=== PATIENT | female | born 1995 | race Caucasian/White ===

== ENCOUNTER 2023-07-29 13:08 | Inpatient (IN) ==
--- NOTE | 2023-07-29 14:18 | Emergency Department Note ---
Impression & Plan Acute psychosis, UTI (urinary tract infection), Acute hypokalemia, Hallucinations, Elevated bilirubin ED Provider Note HISTORY OF PRESENT ILLNESS: Patient is a 28-year-old female presenting for mental health evaluation. Patient reportedly has had 4 interactions with police in the last 14 hours. They have been called to her home and to multiple businesses in the area for the patient acting erratically. Patient reports that she is having visual and auditory hallucinations. She thinks this is secondary to starting Effexor as of yesterday. She reports she has not slept in 36 hours because "I just do not sleep well normally." She states that she got in a disagreement with her mother today because her mother "took my car keys and destroyed some of my property." Patient reports that the voices that she hears are encouraging to her and do not seem to be making any commands or demands. She reports that the hallucinations she is seeing her "scenes from the [employer] books that I read." Denies any suicidal or homicidal ideation. ROS: as above PHYSICAL EXAM: Constitutional: Patient appears in no acute distress. HENT: Head: Normocephalic and atraumatic. Eyes: EOMI, PERRL Mouth/Throat: Mucous membranes moist. Neck: Trachea midline. Neck supple. Musculoskeletal: No edema, tenderness or deformity noted. Skin: Warm and dry. Patient has some ecchymosis on her bilateral forearms. Psychiatric: Patient appears well groomed. Makes fair contact. Speech is pressured with elevated rate. Thought process is tangential and difficult to redirect. Neurological: Alert and keenly responsive. CN II-XII grossly intact, moving all extremities equally and fully. MDM: - Vitals signs showed hypertension and tachycardia. - History obtained via patient and police. Patient presents with hallucinations. Patient reportedly has had poor interactions with the police in the last 14 hours. She has had multiple interactions with family and strangers acting erratically. She reports has been having auditory and visual hallucinations. Reports has been unable to sleep in the last 36 hours. Denies any suicidal or homicidal ideation. - Chronic conditions affecting care: None - Differential diagnoses include, but are not limited to: Salicylate overdose; acetaminophen overdose; SSRI overdose; alcohol intoxication; UTI - Order placed for continuous cardiac monitoring. At this time, monitor showed rate of 110 bpm with normal sinus rhythm, per my interpretation. - External medical records reviewed. - EKG reviewed by myself showed normal sinus rhythm. Rate 85 bpm. QTc 454. QRS 94. No acute ischemic changes. - Laboratory workup interpreted by myself showed normal WBC; hypokalemia (K 3.1); elevated total bilirubin (5.3); elevated AST (115); negative ethanol/salicylate/acetaminophen levels; negative hCG - COVID negative - UA showed evidence of infection. Given 500 mg PO keflex. - UDS positive for THC - RUQ US negative for acute pathology. Noted to have hepatic steatosis - CT abdomen/pelvis with IV contrast showed hepatic steatosis. 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 She was given 20 mg of oral potassium. She given 1 L IV fluids and 0.5 mg of IV Ativan due to continued tachycardia and complaint of auditory and visual hallucinations - Behavioral health campground caretaker called the patient's mother who reported that she believes that the patient is inappropriately taking her psychiatric medications. Reports that the patient has ingested 11 tabs of 5 mg of Ambien in the last 36 hours. Reports that she is ingested 15 tabs of Seroquel 25 mg in that timeframe as well secondary to trying to get her hallucinations under control and for her to be able to sleep. - Discussed patient's medication mismanagement with [facility] at 1900. They recommended bicarb of the patient's QRS on EKG is greater than 120 ms. Recommended IV magnesium if QTc is greater than 500. Recommend Ativan 1 to 2 mg IV every 15 to 20 minutes as needed for agitation or continued symptoms - On discussion with campground caretaker reports that patient will not be medically cleared for placement to psychiatric facility secondary to her elevated bilirubin. Given her multitude of medical problems at this point and her continued tachycardia and hypertension and worsening hallucinations, will admit for medical monitoring and psychiatric evaluation - Hospitalist consulted for admission - Patient admitted to [facility] Hospitalist service for further evaluation and management. ASSESSMENT AND PLAN: Diagnosis: acute psychosis; hallucinations; elevated bilirubin; hypokalemia; UTI Plan: admit Past Med/Surg History Social History Feels Safe at Home: Yes Gender Identity: Female Allergies Allergies Allergy/AdvReac Type Severity Reaction Status Date / Time gluten Allergy Intermediate CELIAC Unverified 04/22/16 22:29 DISEASE Home Meds Home Medications Medication Instructions Recorded Confirmed metoprolol tartrate 50 mg tablet 50 mg PO QAM 07/29/23 07/29/23 ondansetron 4 mg disintegrating 4 mg PO DIRECTED PRN Nausea And 07/29/23 07/29/23 tablet Vomiting Results & Data (ED) Vital Signs Vital Signs - 24 hr 07/29/23 13:31 07/29/23 17:16 07/29/23 19:00 Temperature 36.5 C 36.6 C Temperature Source Oral Oral Pulse Rate 110 H Pulse Rate [Right Radial] 127 H 111 H Respiratory Rate 20 20 22 Blood Pressure 168/108 H Blood Pressure [Left Arm] 165/99 H 159/104 H Blood Pressure Mean 128 Blood Pressure Mean [Left Arm] 121 122 Blood Pressure Position Sitting Pulse Oximetry 99 99 Oxygen Delivery Method Room Air Room Air Sepsis Recent Fever Within 48 Hours No Sepsis New/Unexplained Change in Mental Status No Sepsis Action Taken by Nursing No Action Required Laboratory Data 07/29/23 14:10 07/29/23 14:10 Lab Results 07/29/23 07/29/23 Range/Units 14:10 14:25 WBC 6.85 (4.8-10.8) K/ul RBC 4.14 L (4.20-5.40) M/uL Hgb 12.4 (12.0-16.0) g/dl Hct 35.0 L (37.0-47.0) % MCV 84.5 (80.0-100.0) fL MCH 30.0 (25.0-34.0) pg MCHC 35.4 (32.0-36.0) g/dL RDW Std Deviation 57.0 H (36.4-46.3) fL RDW Coeff of Ken 18.8 H (11.5-14.5) % Plt Count 321 (130-400) K/uL MPV 9.5 (9.4-12.4) fL Immature Gran % (Auto) 0.3 % Neut % (Auto) 70.9 % Lymph % (Auto) 20.9 % Falls % (Auto) 7.4 % Eos % (Auto) 0.1 % Baso % (Auto) 0.4 % Neut # (Auto) 4.85 (1.40-6.50) K/uL Lymph # (Auto) 1.43 (1.20-3.40) K/uL Falls # (Auto) 0.51 (0.11-0.59) K/uL Eos # (Auto) 0.01 (0.00-0.50) K/uL Baso # (Auto) 0.03 (0.00-0.20) K/uL Immature Gran # (Auto) 0.02 (0.01-0.20) K/uL Sodium 136 (136-145) mmol/L Potassium 3.1 L (3.5-5.1) mmol/L Chloride 99 (98-107) mmol/L Carbon Dioxide 26 (21-32) mmol/L Anion Gap 11 (3-11) BUN 5 L (6-23) mg/dl Creatinine 0.67 (0.6-1.2) mg/dl Est Cr Clr Drug Dosing Not Reportable Est GFR ( Amer) 139.6 ml/min Est GFR (Non-Af Amer) 120.5 ml/min BUN/Creatinine Ratio 7.5 L (10-20) Glucose 77 (70-99(Fasting)) mg/dl Calcium 9.9 (8.6-10.3) mg/dl Total Bilirubin 5.3 H (0.2-1.0) mg/dl AST 115 H (13-39) U/L ALT 42 (7-52) U/L Alkaline Phosphatase 112 H (34-104) U/L Total Protein 8.1 (6.0-8.3) gm/dl Albumin 4.6 (3.4-5.0) gm/dl Globulin 3.5 (2.5-4.0) gm/dl Albumin/Globulin Ratio 1.3 (0.9-2) Lipase 5 L (11-82) U/L TSH 0.785 (0.300-4.500) uIu/ml HCG, Qual Negative (Negative) Urine Color Yellow Urine Appearance Clear (Clear) Urine pH 6.0 (4.5-7.5) Ur Specific Secor 1.004 (1.000-1.030) Urine Protein Negative (Negative) Urine Glucose (UA) Negative (Negative) Urine Ketones Trace H (Negative) Urine Blood Negative (Negative) Urine Nitrite Positive A (Negative) Urine Bilirubin Negative (Negative) Urine Urobilinogen Negative (Negative) Ur Leukocyte Esterase 2+ H (Negative) Urine RBC 0-4 (0-4) /hpf Urine WBC 10-30 H (0-5) /hpf Ur Epithelial Cells 5-10 H (0-5) /lpf Urine Bacteria 1+ H (Negative) Salicylates < 3.0 L (3.0-30) mg/dl Urine Opiates Screen Neg (Neg) Ur Methadone, Qual Neg (Neg) Acetaminophen < 3 L (10-30) ug/ml Urine Barbiturates Neg (Neg) Ur Phencyclidine (PCP) Neg (Neg) U Amphetamin/Meth Scrn Neg (Neg) MDMA (Ecstasy) Screen Neg (Neg) U Benzodiazepines Scrn Neg (Neg) Ur Cocaine Metabolite Neg (Neg) U Marijuana (THC) Screen Pos H (Neg) Ethyl Alcohol mg/dL < 10.0 (<10.0) mg/dl SARS-CoV-2, RNA, NAAT NEGATIVE (NEGATIVE) Administered Medications Discontinued Medications Cephalexin HCl (Cephalexin 250 Mg Cap) 500 mg PO NOW ONE Stop: 07/29/23 16:23 Last Admin: 07/29/23 16:49 Dose: 500 mg Documented By: MIGUEL Sodium Chloride (Nss) 1,000 mls @ 999 mls/hr IV .Q1H1M ONE Stop: 07/29/23 20:00 Last Infusion: 07/29/23 20:36 Dose: Infused Documented By: Admin: 07/29/23 19:27 Dose: 999 mls/hr Documented By: DONALD Ioversol (Optiray 320 100ml) 88 ml IV ONCE ONE Stop: 07/29/23 18:53 Last Admin: 07/29/23 18:53 Dose: 88 ml Documented By: DOLLY Ketorolac Tromethamine (Ketorolac Tromethamine 15 Mg/Ml Vial) 15 mg IM NOW STA Stop: 07/29/23 16:36 Last Admin: 07/29/23 16:48 Dose: 15 mg Documented By: MIGUEL Lorazepam (Lorazepam 1 Mg Tab) 2 mg PO NOW STA Stop: 07/29/23 15:14 Last Admin: 07/29/23 15:28 Dose: 2 mg Documented By: MIGUEL Lorazepam (Lorazepam 1 Mg/1 Ml Syr Ed Inj Use) 0.5 mg IV ONE STA Stop: 07/29/23 19:28 Last Admin: 07/29/23 19:49 Dose: 0.5 mg Documented By: DONALD Potassium Chloride (Potassium Chloride Crtab 20 Meq Tabcr) 20 meq PO NOW STA Stop: 07/29/23 18:59 Last Admin: 07/29/23 19:27 Dose: 20 meq Documented By: CEK Imaging Data Radiologist's Impression: Liver Ultrasound 07/29/23 16:22 US liver CLINICAL HISTORY: elevated bilirubin COMPARISON STUDY: KUB June 18, 2015. FINDINGS: Hepatic echogenicity is mildly increased. Size of the liver is normal. There are no hepatic lesions. There is no biliary ductal dilatation. Common bile duct measures 3 mm in caliber. The gallbladder is normal. There are are no gallstones. There is no right hydronephrosis. Pancreas is unremarkable by sonography. IMPRESSION: 1. No gallstones or biliary ductal dilatation. 2. Increased hepatic echogenicity suggestive of hepatic steatosis. ACT 112: Negative or not required by law. Electronically signed by: Triston Dewey M.D. 07/29/2023 5:20 PM Abdomen/Pelvis CT 07/29/23 18:24 CT OF THE ABDOMEN AND PELVIS WITH CONTRAST CLINICAL HISTORY: abdominal pain; elevated bilirubin COMPARISON STUDY: Right upper quadrant ultrasound performed earlier today. TECHNIQUE: Following IV administration of 88 mL of Optiray, axial images of the abdomen and pelvis were obtained from the lung bases to the proximal femurs. Images were reviewed in the axial, sagittal, and coronal planes. IV contrast was administered without complication. Automated exposure control was utilized for the study. A dose lowering technique was utilized adhering to the principles of ALARA. CT DOSE: 511.2 mGy.cm FINDINGS: Lung bases are unremarkable. No pneumatosis, free air or portal venous gas is present. There is hepatic steatosis. Size of the liver is normal. No hepatic lesions are identified. There is no biliary or pancreatic ductal dilatation. No peripancreatic or pericholecystic infiltration is present. Spleen, adrenal glands and kidneys are normal. There is no hydronephrosis. Pancreas is unremarkable. There is severe narrowing of the proximal celiac axis. The narrowing and configuration suggest median arcuate ligament as the etiology. The main, right and left portal veins are patent. There is no ascites. Caliber and wall thickness of small and large bowel are normal. The appendix is normal. Ovaries are not enlarged. There is subtle subchondral sclerosis within the bilateral femoral heads without collapse. No acute fractures are identified within the visualized skeletal structures. IMPRESSION: 1. Hepatic steatosis. Normal liver morphology. 2. No biliary or pancreatic ductal dilatation. 3. 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 4. Possible avascular necrosis of the bilateral femoral heads without collapse. 5. No bowel obstruction. No bowel wall thickening. Normal appendix. ACT 112: Negative or not required by law. Electronically signed by: Triston Dewey M.D. 07/29/2023 7:14 PM Discharge Plan Visit Data Chief Complaint: Mental Health Evaluation Stated Complaint: [facility] ED Provider: Alison Oliver Discharge Problem: Acute psychosis, UTI (urinary tract infection), Acute hypokalemia, Hallucinations, Elevated bilirubin Forms Stand Alone Forms: [facility], Suicide Prevention Resources Prescriptions Prescriptions: No Action metoprolol tartrate 50 mg Tablet 50 mg PO QAM ondansetron [Zofran ODT] 4 mg Tablet,Disintegrating 4 mg PO DIRECTED PRN (Reason: Nausea And Vomiting) Referrals Referrals: PCP,NO [Primary Care Provider] -
[2023-07-29 14:35] LABS: Basophils # (auto) 0.03 K/uL (0.00-0.20); Basophils % (auto) 0.4 %; Eosinophils # (auto) 0.01 K/uL (0.00-0.50); Eosinophils % (auto) 0.1 %; Hemoglobin 12.4 g/dl (12.0-16.0); Immature Granulocytes # (auto) 0.02 K/uL (0.01-0.20); Immature Granulocytes % (auto) 0.3 %; Lymphocytes # (auto) 1.43 K/uL (1.20-3.40); Lymphocytes % (auto) 20.9 %; Mean Corpuscular Hgb Conc 35.4 g/dL (32.0-36.0); Mean Corpuscular Volume 84.5 fL (80.0-100.0); Mean Platelet Volume 9.5 fL (9.4-12.4); Monocytes # (auto) 0.51 K/uL (0.11-0.59); Monocytes % (auto) 7.4 %; Neutrophils # (auto) 4.85 K/uL (1.40-6.50); Neutrophils % (auto) 70.9 %; Platelet Count 321 K/uL (130-400); RDW Coefficient of Variation 18.8 % (11.5-14.5); Red Blood Count 4.14 M/uL (4.20-5.40); White Blood Count 6.85 K/ul (4.8-10.8)
[2023-07-29 14:41] LABS: Appearance Urine Clear (Clear); Bilirubin Urine Negative (Negative); Blood Urine Negative (Negative); Color Urine Yellow; Glucose Urine UA Negative (Negative); Ketones Urine Trace (Negative); Leukocyte Esterase Urine 2+ (Negative); Nitrite Urine Positive (Negative); Protein Urine Negative (Negative); Specific Gravity Urine 1.004 (1.000-1.030); Urobilinogen Urine Negative (Negative)
[2023-07-29 14:45] LABS: Albumin Level 4.6 gm/dl (3.4-5.0); Anion Gap 11 (3-11); Bilirubin,Total 5.3 mg/dl (0.2-1.0); Calcium 9.9 mg/dl (8.6-10.3); Carbon Dioxide 26 mmol/L (21-32); Chloride 99 mmol/L (98-107); Potassium 3.1 mmol/L (3.5-5.1); Sodium 136 mmol/L (136-145)
[2023-07-29 14:46] LABS: Pregnancy Test, Serum Negative (Negative)
[2023-07-29 14:51] LABS: Alanine Aminotransferase 42 U/L (7-52); Albumin Globulin Ratio 1.3 (0.9-2); Alkaline Phosphatase 112 U/L (34-104); Aspartate Aminotransferase 115 U/L (13-39); BUN Creatinine Ratio 7.5 (10-20); Blood Urea Nitrogen 5 mg/dl (6-23); Est GFR (African American) 139.6 ml/min; Est GFR (Non-African American) 120.5 ml/min; Globulin 3.5 gm/dl (2.5-4.0); Glucose 77 mg/dl (70-99(Fasting)); Total Protein 8.1 gm/dl (6.0-8.3)
[2023-07-29 14:52] LABS: Acetaminophen < 3 ug/ml (10-30); Salicylate < 3.0 mg/dl (3.0-30)
[2023-07-29 15:03] LABS: Amphetamines+Metham, Urine Neg (Neg); Barbiturates, Urine Neg (Neg); Benzodiazepine, Urine Neg (Neg); Cocaine, Urine Neg (Neg); MDMA (Ecstacy), Urine Neg (Neg); Methadone, Urine Neg (Neg); Opiate, Urine Neg (Neg); Phencyclidine, Urine Neg (Neg)
[2023-07-29 15:11] LABS: Thyroid Stimulating Hormone 0.785 uIu/ml (0.300-4.500)
[2023-07-29] MEDS ORDERED: LORazepam 1 MG TAB PO STA (15:13)
[2023-07-29 15:16] LABS: Bacteria Urine 1+ (Negative); RBC Urine 0-4 /hpf (0-4)
[2023-07-29] MEDS ORDERED: cephALEXin 250 MG CAP PO ONE (16:22)
[2023-07-29] MEDS ORDERED: KETOROLAC TROMETHAMINE 15 MG/ML VIAL IM STA (16:35)
--- NOTE | 2023-07-29 17:21 | Ultrasound Report ---
US liver CLINICAL HISTORY: elevated bilirubin COMPARISON STUDY: KUB June 18, 2015. FINDINGS: Hepatic echogenicity is mildly increased. Size of the liver is normal. There are no hepatic lesions. There is no biliary ductal dilatation. Common bile duct measures 3 mm in caliber. The gallb ladder is normal. There are are no gallstones. There is no right hydronephrosis. Pancreas is unremark able by sonography. IMPRESSION: 1. No gallstones or biliary ductal dilatation. 2. Increased hepatic echogenicity suggestive of hepatic steatosis. ACT 112: Negative or not required by law. Electronically signed by: Triston Dewey M.D. 07/29/2023 5:20 PM
[2023-07-29 17:31] LABS: Lipase 5 U/L (11-82)
[2023-07-29] MEDS ORDERED: OPTIRAY 320 100ml IV ONE (18:52)
[2023-07-29] MEDS ORDERED: POTASSIUM CHLORIDE CRTAB 20 MEQ TABCR PO STA (18:58)
[2023-07-29] MEDS ORDERED: SODIUM CHLORIDE 0.9% 1,000 ML IV ONE (19:00)
--- NOTE | 2023-07-29 19:16 | CT Scan Report ---
CT OF THE ABDOMEN AND PELVIS WITH CONTRAST CLINICAL HISTORY: abdominal pain; elevated bilirubin COMPARISON STUDY: Right upper quadrant ultrasound performed earlier today. TECHNIQUE: Following IV administration of 88 mL of Optiray, axial images of the abdomen and pelvis we re obtained from the lung bases to the proximal femurs. Images were reviewed in the axial, sagittal, and coronal planes. IV contrast was administered without complication. Automated exposure control wa s utilized for the study. A dose lowering technique was utilized adhering to the principles of ALARA . CT DOSE: 511.2 mGy.cm FINDINGS: Lung bases are unremarkable. No pneumatosis, free air or portal venous gas is present. Ther e is hepatic steatosis. Size of the liver is normal. No hepatic lesions are identified. There is no b iliary or pancreatic ductal dilatation. No peripancreatic or pericholecystic infiltration is present. Spleen, adrenal glands and kidneys are normal. There is no hydronephrosis. Pancreas is unremarkable. There is severe narrowing of the proximal celiac axis. The narrowing and configuration suggest media n arcuate ligament as the etiology. The main, right and left portal veins are patent. There is no asc ites. Caliber and wall thickness of small and large bowel are normal. The appendix is normal. Ovaries are not enlarged. There is subtle subchondral sclerosis within the bilateral femoral heads without c ollapse. No acute fractures are identified within the visualized skeletal structures. IMPRESSION: 1. Hepatic steatosis. Normal liver morphology. 2. No biliary or pancreatic ductal dilatation. 3. 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 4. Possible avascular necrosis of the bilateral femoral heads without collapse. 5. No bowel obstruction. No bowel wall thickening. Normal appendix. ACT 112: Negative or not required by law. Electronically signed by: Triston Dewey M.D. 07/29/2023 7:14 PM
[2023-07-29] MEDS ORDERED: LORazepam 1 MG/1 ML SYR ED Inj Use IV STA ×3 (19:27→23:43)
--- NOTE | 2023-07-29 22:43 | History & Physical Report ---
Date of Service July 29, 2023 Assessment & Plan (1) Acute psychosis: Plan: 28-year-old female with past med significant for intermittent palpitation, celiac disease, chronic left hip pain, major depression, mixed anxiety disorder, history of alcohol abuse, PTSD, was brought into the ER for mental health evaluation. As per ER patient had 4 interactions with police in last 14 hours. They have been called for home and to multiple businesses in the area with patient acting erratically. Patient reports she is having visual and auditory hallucinations. She is hearing her family talking about her. And also seeing things on the [place]. She recently started Effexor . And she also on Seroquel. She states she did not sleep last few days and she took Ambien and also Seroquel. Looks like she ingested 11 tablets of 5 mg Ambien in the last 36 hours and also 15 tablets of Seroquel 25 mg the same timeframe to get hallucinations under control and also to help her sleep. ER talk to poison control and was recommended bicarb if QRS on EKG greater than 120 and IV magnesium if QTc greater than 500. Also recommended Ativan as needed for agitations. Patient needs medically cleared for psychiatric facility because of her elevated bilirubin. In the ER she also found her tachycardia and elevated blood pressure. Acute psychosis Visual and auditory hallucinations Drug overdose Also took 11 tablets of 5 mg Ambien and also 15 tablets of Seroquel 25 mg to help her with her hallucinations and to help her with her sleep EKG looks okay ER talk to the poison control and recommended bicarb if QRS is greater than 120 and IV magnesium if QTc greater than 500 and IV Ativan as needed for agitation We will place an IV fluids Psychiatry consult One-on-one as needed Elevated LFTs Total bilirubin 5.3 AST 115 ALT 42 Alkaline phos is [address] abdomen pelvis showed hepatic steatosis, normal liver morphology Liver ultrasound showed hepatic steatosis We will follow repeat labs in a.m. GI consult in a.m. Tachycardia and hypertension We will place on metoprolol succinate We will monitor UTI Received Keflex in the ER We will place on Rocephin We will follow cultures Possible Avascular necrosis of bilateral femoral heads will consult ortho Possible Median arcuate ligament syndrome ct scan findings will consult surgery. DVT prophylaxis SCDs Disposition Telemetry floor Full code History of Present Illness Chief Complaint: Hallucinations, elevated LFTs, UTI Primary Care Provider: NO PCP 28-year-old female with past med significant for intermittent palpitation, celiac disease, chronic left hip pain, major depression, mixed anxiety disorder, history of alcohol abuse, PTSD, was brought into the ER for mental health evaluation. As per ER patient had 4 interactions with police in last 14 hours. They have been called for home and to multiple businesses in the area with patient acting erratically. Patient reports she is having visual and auditory hallucinations. She is hearing her family talking about her. And also seeing things on the [place]. She was recently started on Effexor . And she also on Seroquel. She states she did not sleep last few days and she took Ambien and also Seroquel. Looks like she ingested 11 tablets of 5 mg Ambien in the last 36 hours and also 15 tablets of Seroquel 25 mg the same timeframe to get hallucinations under control and also to help her get sleep. ER talk to poison control and was recommended bicarb if QRS on EKG greater than 120 and IV magnesium if QTc greater than 500. Also recommended Ativan as needed for agitations. Patient needs medically cleared for psychiatric facility because of her elevated bilirubin. In the ER she also found her tachycardia and elevated blood pressure. Patient currently complains of being anxious. Answers yes to most of the questions. States has headache, has blurred visions, has sore throat, has runny nose, has cough, has nausea, has chest pains, has shortness of breath, has abdominal pain, states has both diarrhea and constipation. Past medical history. As mentioned above Past surgical history dental procedure. Social history. No smoking. Alcohol occasional as per patient. Marijuana occasional as per patient Family history no family history on file Allergies Allergy/AdvReac Type Severity Reaction Status Date / Time gluten Allergy Intermediate CELIAC Unverified 04/22/16 22:29 DISEASE Home Medications Medication Instructions Recorded Confirmed Type metoprolol tartrate 50 mg tablet 50 mg PO QAM 07/29/23 07/29/23 History ondansetron 4 mg disintegrating 4 mg PO DIRECTED PRN Nausea And 07/29/23 07/29/23 History tablet Vomiting Past Med/Surg History Social History Smoking Status: Never smoker Hx Alcohol Use: Yes Alcohol type: other Hx Substance Use: Yes (pt denied, + marijuana) Last Used Substance: Unknown Last Used Substance Other:: pt denying any illicit drugs Beliefs That Will Affect Care: None Current Living Situation: Alone Feels Safe at Home: Yes and No Is there a partner from a previous relationship who is making you feel unsafe now?: No Any Concerns about Your Family Situation: Yes (not talking to mother/father) Would You Like to Speak to Someone About Your Situation: Yes (psych consult placed) Safety Concerns: Afraid for Self Gender Identity: Female Assistive Devices: None Review of Systems Review of Systems: All systems reviewed & are unremarkable except as noted in HPI & below Physical Exam Physical Exam: General- Not in distress. Head- atraumatic Eyes- EOMI, ENT- oropharynx clear Neck- supple, no JVD. Lungs- clear to auscultation , no wheezing or crackles. Heart- regular rhythm; no murmur, no gallop. Abdomen- normal bowel sounds, soft, nontender, no distension. Extremities- no pretibial edema, no erythema seen. Neuro- alert, oriented no facial palsy; no dysarthria; moves extremities. Results & Data Results & Data Vital Signs (Past 12 Hours) Vital Signs Temp Pulse Pulse Resp BP BP Pulse Ox 07/29/23 21:00 36.6 C 93 H 20 98 07/29/23 19:00 111 H 22 159/104 H 07/29/23 17:16 36.6 C 127 H 20 165/99 H 99 07/29/23 13:31 36.5 C 110 H 20 168/108 H 99 O2 Del Method 07/29/23 21:00 Room Air 07/29/23 19:00 07/29/23 17:16 Room Air 07/29/23 13:31 Room Air Diagnostic Findings Laboratory Results WBC 6.85 K/ul (4.8-10.8) 07/29/23 14:10 RBC 4.14 M/uL (4.20-5.40) L 07/29/23 14:10 Hgb 12.4 g/dl (12.0-16.0) 07/29/23 14:10 Hct 35.0 % (37.0-47.0) L 07/29/23 14:10 MCV 84.5 fL (80.0-100.0) 07/29/23 14:10 MCH 30.0 pg (25.0-34.0) 07/29/23 14:10 MCHC 35.4 g/dL (32.0-36.0) 07/29/23 14:10 RDW Std Deviation 57.0 fL (36.4-46.3) H 07/29/23 14:10 RDW Coeff of Ken 18.8 % (11.5-14.5) H 07/29/23 14:10 Plt Count 321 K/uL (130-400) 07/29/23 14:10 MPV 9.5 fL (9.4-12.4) 07/29/23 14:10 Immature Gran % (Auto) 0.3 % 07/29/23 14:10 Neut % (Auto) 70.9 % 07/29/23 14:10 Lymph % (Auto) 20.9 % 07/29/23 14:10 [place] % (Auto) 7.4 % 07/29/23 14:10 Eos % (Auto) 0.1 % 07/29/23 14:10 Baso % (Auto) 0.4 % 07/29/23 14:10 Neut # (Auto) 4.85 K/uL (1.40-6.50) 07/29/23 14:10 Lymph # (Auto) 1.43 K/uL (1.20-3.40) 07/29/23 14:10 [place] # (Auto) 0.51 K/uL (0.11-0.59) 07/29/23 14:10 Eos # (Auto) 0.01 K/uL (0.00-0.50) 07/29/23 14:10 Baso # (Auto) 0.03 K/uL (0.00-0.20) 07/29/23 14:10 Immature Gran # (Auto) 0.02 K/uL (0.01-0.20) 07/29/23 14:10 Sodium 136 mmol/L (136-145) 07/29/23 14:10 Potassium 3.1 mmol/L (3.5-5.1) L 07/29/23 14:10 Chloride 99 mmol/L (98-107) 07/29/23 14:10 Carbon Dioxide 26 mmol/L (21-32) 07/29/23 14:10 Anion Gap 11 (3-11) 07/29/23 14:10 BUN 5 mg/dl (6-23) L 07/29/23 14:10 Creatinine 0.67 mg/dl (0.6-1.2) 07/29/23 14:10 Est Cr Clr Drug Dosing Not Reportable 07/29/23 14:10 Est GFR ( Amer) 139.6 ml/min 07/29/23 14:10 Est GFR (Non-Af Amer) 120.5 ml/min 07/29/23 14:10 BUN/Creatinine Ratio 7.5 (10-20) L 07/29/23 14:10 Glucose 77 mg/dl (70-99(Fasting)) 07/29/23 14:10 Calcium 9.9 mg/dl (8.6-10.3) 07/29/23 14:10 Total Bilirubin 5.3 mg/dl (0.2-1.0) H 07/29/23 14:10 AST 115 U/L (13-39) H 07/29/23 14:10 ALT 42 U/L (7-52) 07/29/23 14:10 Alkaline Phosphatase 112 U/L (34-104) H 07/29/23 14:10 Total Protein 8.1 gm/dl (6.0-8.3) 07/29/23 14:10 Albumin 4.6 gm/dl (3.4-5.0) 07/29/23 14:10 Globulin 3.5 gm/dl (2.5-4.0) 07/29/23 14:10 Albumin/Globulin Ratio 1.3 (0.9-2) 07/29/23 14:10 Lipase 5 U/L (11-82) L 07/29/23 14:10 TSH 0.785 uIu/ml (0.300-4.500) 07/29/23 14:10 HCG, Qual Negative (Negative) 07/29/23 14:10 Urine Color Yellow 07/29/23 14:25 Urine Appearance Clear (Clear) 07/29/23 14:25 Urine pH 6.0 (4.5-7.5) 07/29/23 14:25 Ur Specific [place] 1.004 (1.000-1.030) 07/29/23 14:25 Urine Protein Negative (Negative) 07/29/23 14:25 Urine Glucose (UA) Negative (Negative) 07/29/23 14:25 Urine Ketones Trace (Negative) H 07/29/23 14:25 Urine Blood Negative (Negative) 07/29/23 14:25 Urine Nitrite Positive (Negative) A 07/29/23 14:25 Urine Bilirubin Negative (Negative) 07/29/23 14:25 Urine Urobilinogen Negative (Negative) 07/29/23 14:25 Ur Leukocyte Esterase 2+ (Negative) H 07/29/23 14:25 Urine RBC 0-4 /hpf (0-4) 07/29/23 14:25 Urine WBC 10-30 /hpf (0-5) H 07/29/23 14:25 Ur Epithelial Cells 5-10 /lpf (0-5) H 07/29/23 14:25 Urine Bacteria 1+ (Negative) H 07/29/23 14:25 Salicylates < 3.0 mg/dl (3.0-30) L 07/29/23 14:10 Urine Opiates Screen Neg (Neg) 07/29/23 14:25 Ur Methadone, Qual Neg (Neg) 07/29/23 14:25 Acetaminophen < 3 ug/ml (10-30) L 07/29/23 14:10 Urine Barbiturates Neg (Neg) 07/29/23 14:25 Ur Phencyclidine (PCP) Neg (Neg) 07/29/23 14:25 U Amphetamin/Meth Scrn Neg (Neg) 07/29/23 14:25 MDMA (Ecstasy) Screen Neg (Neg) 07/29/23 14:25 U Benzodiazepines Scrn Neg (Neg) 07/29/23 14:25 Ur Cocaine Metabolite Neg (Neg) 07/29/23 14:25 U Marijuana (THC) Screen Pos (Neg) H 07/29/23 14:25 Ethyl Alcohol mg/dL < 10.0 mg/dl (<10.0) 07/29/23 14:10 SARS-CoV-2, RNA, NAAT NEGATIVE (NEGATIVE) 07/29/23 14:10 Impressions Liver Ultrasound 07/29/23 16:22 US liver CLINICAL HISTORY: elevated bilirubin COMPARISON STUDY: KUB June 18, 2015. FINDINGS: Hepatic echogenicity is mildly increased. Size of the liver is normal. There are no hepatic lesions. There is no biliary ductal dilatation. Common bile duct measures 3 mm in caliber. The gallbladder is normal. There are are no gallstones. There is no right hydronephrosis. Pancreas is unremarkable by sonography. IMPRESSION: 1. No gallstones or biliary ductal dilatation. 2. Increased hepatic echogenicity suggestive of hepatic steatosis. ACT 112: Negative or not required by law. Electronically signed by: Triston Dewey M.D. 07/29/2023 5:20 PM Abdomen/Pelvis CT 07/29/23 18:24 CT OF THE ABDOMEN AND PELVIS WITH CONTRAST CLINICAL HISTORY: abdominal pain; elevated bilirubin COMPARISON STUDY: Right upper quadrant ultrasound performed earlier today. TECHNIQUE: Following IV administration of 88 mL of Optiray, axial images of the abdomen and pelvis were obtained from the lung bases to the proximal femurs. Images were reviewed in the axial, sagittal, and coronal planes. IV contrast was administered without complication. Automated exposure control was utilized for the study. A dose lowering technique was utilized adhering to the principles of ALARA. CT DOSE: 511.2 mGy.cm FINDINGS: Lung bases are unremarkable. No pneumatosis, free air or portal venous gas is present. There is hepatic steatosis. Size of the liver is normal. No hepatic lesions are identified. There is no biliary or pancreatic ductal dilatation. No peripancreatic or pericholecystic infiltration is present. Spleen, adrenal glands and kidneys are normal. There is no hydronephrosis. Pancreas is unremarkable. There is severe narrowing of the proximal celiac axis. The narrowing and configuration suggest median arcuate ligament as the etiology. The main, right and left portal veins are patent. There is no ascites. Caliber and wall thickness of small and large bowel are normal. The appendix is normal. Ovaries are not enlarged. There is subtle subchondral sclerosis within the b ilateral femoral heads without collapse. No acute fractures are identified within the visualized skeletal structures. IMPRESSION: 1. Hepatic steatosis. Normal liver morphology. 2. No biliary or pancreatic ductal dilatation. 3. 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 4. Possible avascular necrosis of the bilateral femoral heads without collapse. 5. No bowel obstruction. No bowel wall thickening. Normal appendix. ACT 112: Negative or not required by law. Electronically signed by: Triston Dewey M.D. 07/29/2023 7:14 PM ECG Additional Comments: ECG. Normal sinus rhythm with sinus arrhythmia at a rate of 85. QTc 454. QRS 94.
[2023-07-30] MEDS ORDERED: HYDROmorphone INJ 0.5 MG/0.5 ML SYR IV STA (01:02)
[2023-07-30] MEDS ORDERED: NITROGLYCERIN SL 0.4 MG/TAB TAB SL PRN (01:41)
[2023-07-30] MEDS: SODIUM CHLORIDE 0.9% 1,000 ML IV SCH ×3 (02:00→18:30)
[2023-07-30] MEDS: LORazepam 0.5 MG in SYRINGE 0.25 ML IV PRN ×3 (03:10→13:25)
[2023-07-30] MEDS ORDERED: LORazepam 0.5 MG in SYRINGE 0.25 ML IV STA (05:50)
[2023-07-30 05:52] LABS: Basophils # (auto) 0.03 K/uL (0.00-0.20); Basophils % (auto) 0.4 %; Eosinophils # (auto) 0.13 K/uL (0.00-0.50); Eosinophils % (auto) 1.9 %; Hematocrit (blood only) 31.7 % (37.0-47.0); Hemoglobin 10.9 g/dl (12.0-16.0); Immature Granulocytes # (auto) 0.02 K/uL (0.01-0.20); Immature Granulocytes % (auto) 0.3 %; Lymphocytes # (auto) 1.94 K/uL (1.20-3.40); Lymphocytes % (auto) 28.3 %; Mean Corpuscular Hemoglobin 29.7 pg (25.0-34.0); Mean Corpuscular Hgb Conc 34.4 g/dL (32.0-36.0); Mean Corpuscular Volume 86.4 fL (80.0-100.0); Mean Platelet Volume 9.6 fL (9.4-12.4); Monocytes # (auto) 0.62 K/uL (0.11-0.59); Neutrophils # (auto) 4.12 K/uL (1.40-6.50); Neutrophils % (auto) 60.1 %; Platelet Count 262 K/uL (130-400); Red Blood Count 3.67 M/uL (4.20-5.40); White Blood Count 6.86 K/ul (4.8-10.8)
[2023-07-30 06:05] LABS: Albumin Level 3.8 gm/dl (3.4-5.0); BUN Creatinine Ratio 6.9 (10-20); Bilirubin Direct 1.1 mg/dl (0-0.2); Bilirubin,Total 4.4 mg/dl (0.2-1.0); Calcium 8.8 mg/dl (8.6-10.3); Creatinine Clr Calc Pharmacy 153.4 ml/min; Est GFR (African American) 146.4 ml/min; Est GFR (Non-African American) 126.3 ml/min; Magnesium 1.7 mg/dl (1.7-2.4); Potassium 3.4 mmol/L (3.5-5.1); Total Protein 6.6 gm/dl (6.0-8.3)
[2023-07-30] MEDS ORDERED: MAGNESIUM SULFATE / D5W 1 GM/100 ML BAG IV ONE (07:50)
--- NOTE | 2023-07-30 07:55 | Hospitalist Progress Note ---
Date of Service July 30, 2023 Assessment & Plan (1) Acute psychosis: Plan: 28-year-old female with past med significant for intermittent palpitation, celiac disease, chronic left hip pain, major depression, mixed anxiety disorder, history of alcohol abuse, PTSD, was brought into the ER for mental health evaluation. As per ER patient had 4 interactions with police in last 14 hours. They have been called for home and to multiple businesses in the area with patient acting erratically. Patient reports she is having visual and auditory hallucinations. She is hearing her family talking about her. And also seeing things on the [place]. She recently started Effexor . And she also on Seroquel. She states she did not sleep last few days and she took Ambien and also Seroquel. Looks like she ingested 11 tablets of 5 mg Ambien in the last 36 hours and also 15 tablets of Seroquel 25 mg the same timeframe to get hallucinations under control and also to help her sleep. ER talk to poison control and was recommended bicarb if QRS on EKG greater than 120 and IV magnesium if QTc greater than 500. Also recommended Ativan as needed for agitations. Patient needs medically cleared for psychiatric facility because of her elevated bilirubin. In the ER she also found her tachycardia and elevated blood pressure. Acute psychosis Visual and auditory hallucinations Drug overdose Also took 11 tablets of 5 mg Ambien and also 15 tablets of Seroquel 25 mg to help her with her hallucinations and to help her with her sleep EKG looks okay ER talked to the poison control and recommended bicarb if QRS is greater than 120 and IV magnesium if QTc greater than 500 and IV Ativan as needed for agitation Cont. IV fluids Psychiatry consulted - pt can't leave AMA. concern for etoh abuse - will start on thiamine, folic acid, gabapentin, awss, ativan. Cont. to follow, appreciate their input One-on-one Elevated LFTs Total bilirubin 5.3 AST 115 ALT 42 Alkaline phos is [address] abdomen pelvis showed hepatic steatosis, normal liver morphology Liver ultrasound showed hepatic steatosis Monitor labs GI consulted - Her LFT's are elevated in the pattern seen with alcoholic liver disease. She knows she has this and this elevation is chronic. She has stopped drinking or is drinking in limited manner with glass of wine at dinner a couple of times per week. It is possible she also has Gilbert's on top of the alcoholic liver disease. It can takes months for elevated liver enzymes to resolve with history of alcohol related liver disease. This should not preclude her from being admitted to psychiatry floor for evaluation and treatment. The only thing that needs to be done is to follow LFT's periodically and for her to stay off alcohol. Tachycardia and hypertension cont. metoprolol succinate We will monitor UTI Received Keflex in the ER We will place on Rocephin We will follow cultures Possible Avascular necrosis of bilateral femoral heads Orthopedics consulted - no procedure at this time, follow up as outpt (may need tertiary center) Possible Median arcuate ligament syndrome ct scan findings Consulted gen surgery - no procedure needed at this time, no abd. pain - surgery signed off DVT prophylaxis SCDs Disposition Telemetry floor Full code Admission and Anticipated Discharge Date Admission Date: July 29, 2023 Subjective Pt seen in follow up of suicidal attempt, ingestion of ambien and seroquel. elevated LFTs, bili GI consulted for elev. LFTs, bili - no concerns - likely from etoh use Gen surgery and orthopedic consulted for abnormal findings on CT and avascular necrosis of hips - no procedure planned at this time Psychiatry consulted - pt can't leave AMA. EtoH use is a concern. Appreciate their input. Will continue to follow. UTI and started on ceftriaxone Review of Systems Review of Systems: All systems reviewed & are unremarkable except as noted in Subjective Physical Exam Physical Exam: General- young slim F in NAD Head- atraumatic Eyes- EOMI, ENT- oropharynx clear Neck- supple, no JVD. Lungs- clear to auscultation , no wheezing or crackles. Heart- regular rhythm; no murmur, no gallop. Abdomen- normal bowel sounds, soft, nontender, no distension. Extremities- no pretibial edema, no erythema seen. Neuro- alert, oriented no facial palsy; no dysarthria; moves extremities. Results & Data Results & Data Vital Signs (Past 12 Hours) Vital Signs Temp Pulse Pulse Resp BP Pulse Ox O2 Del Method 07/30/23 01:47 Room Air 07/30/23 01:45 Room Air 07/30/23 01:44 82 07/30/23 01:41 36.5 C 81 18 124/80 100 Room Air 07/30/23 01:41 36.8 C 78 20 145/92 H 98 Room Air 07/30/23 01:00 101 H 20 160/120 H 97 Room Air 07/29/23 21:00 36.6 C 93 H 20 98 Room Air Laboratory Results 07/30/23 07/29/23 07/29/23 Range/Units 05:21 14:25 14:10 WBC 6.86 6.85 (4.8-10.8) K/ul RBC 3.67 L 4.14 L (4.20-5.40) M/uL Hgb 10.9 L 12.4 (12.0-16.0) g/dl Hct 31.7 L 35.0 L (37.0-47.0) % MCV 86.4 84.5 (80.0-100.0) fL MCH 29.7 30.0 (25.0-34.0) pg MCHC 34.4 35.4 (32.0-36.0) g/dL RDW Std Deviation 60.0 H 57.0 H (36.4-46.3) fL RDW Coeff of Ken 19.0 H 18.8 H (11.5-14.5) % Plt Count 262 321 (130-400) K/uL MPV 9.6 9.5 (9.4-12.4) fL Immature Gran % (Auto) 0.3 0.3 % Neut % (Auto) 60.1 70.9 % Lymph % (Auto) 28.3 20.9 % [place] % (Auto) 9.0 7.4 % Eos % (Auto) 1.9 0.1 % Baso % (Auto) 0.4 0.4 % Neut # (Auto) 4.12 4.85 (1.40-6.50) K/uL Lymph # (Auto) 1.94 1.43 (1.20-3.40) K/uL [place] # (Auto) 0.62 H 0.51 (0.11-0.59) K/uL Eos # (Auto) 0.13 0.01 (0.00-0.50) K/uL Baso # (Auto) 0.03 0.03 (0.00-0.20) K/uL Immature Gran # (Auto) 0.02 0.02 (0.01-0.20) K/uL Sodium 135 L 136 (136-145) mmol/L Potassium 3.4 L 3.1 L (3.5-5.1) mmol/L Chloride 102 99 (98-107) mmol/L Carbon Dioxide 23 26 (21-32) mmol/L Anion Gap 10 11 (3-11) BUN 4 L 5 L (6-23) mg/dl Creatinine 0.58 L 0.67 (0.6-1.2) mg/dl Est Cr Clr Drug Dosing 153.4 Not Reportable Est GFR ( Amer) 146.4 139.6 ml/min Est GFR (Non-Af Amer) 126.3 120.5 ml/min BUN/Creatinine Ratio 6.9 L 7.5 L (10-20) Glucose 63 L 77 (70-99(Fasting)) mg/dl Calcium 8.8 9.9 (8.6-10.3) mg/dl Magnesium 1.7 (1.7-2.4) mg/dl Total Bilirubin 4.4 H 5.3 H (0.2-1.0) mg/dl Direct Bilirubin 1.1 H (0-0.2) mg/dl AST 139 H 115 H (13-39) U/L ALT 38 42 (7-52) U/L Alkaline Phosphatase 108 H 112 H (34-104) U/L Total Protein 6.6 8.1 (6.0-8.3) gm/dl Albumin 3.8 4.6 (3.4-5.0) gm/dl Globulin 3.5 (2.5-4.0) gm/dl Albumin/Globulin Ratio 1.3 (0.9-2) Lipase 5 L (11-82) U/L TSH 0.785 (0.300-4.500) uIu/ml HCG, Qual Negative (Negative) Urine Color Yellow Urine Appearance Clear (Clear) Urine pH 6.0 (4.5-7.5) Ur Specific [place] 1.004 (1.000-1.030) Urine Protein Negative (Negative) Urine Glucose (UA) Negative (Negative) Urine Ketones Trace H (Negative) Urine Blood Negative (Negative) Urine Nitrite Positive A (Negative) Urine Bilirubin Negative (Negative) Urine Urobilinogen Negative (Negative) Ur Leukocyte Esterase 2+ H (Negative) Urine RBC 0-4 (0-4) /hpf Urine WBC 10-30 H (0-5) /hpf Ur Epithelial Cells 5-10 H (0-5) /lpf Urine Bacteria 1+ H (Negative) Salicylates < 3.0 L (3.0-30) mg/dl Urine Opiates Screen Neg (Neg) Ur Methadone, Qual Neg (Neg) Acetaminophen < 3 L (10-30) ug/ml Urine Barbiturates Neg (Neg) Ur Phencyclidine (PCP) Neg (Neg) U Amphetamin/Meth Scrn Neg (Neg) MDMA (Ecstasy) Screen Neg (Neg) U Benzodiazepines Scrn Neg (Neg) Ur Cocaine Metabolite Neg (Neg) U Marijuana (THC) Screen Pos H (Neg) U Marijuana THC Carboxy Pending Drug Screen Comment Pending Ethyl Alcohol mg/dL < 10.0 (<10.0) mg/dl SARS-CoV-2, RNA, NAAT NEGATIVE (NEGATIVE) Medications Administered Current Inpatient Medications Folic Acid (Folic Acid 1 Mg Tab) 1 mg PO QAM BALDOMERO Stop: 08/29/23 16:14 Gabapentin (Gabapentin 300 Mg Cap) 300 mg PO TID BALDOMERO Stop: 08/29/23 15:19 Sodium Chloride (Nss) 1,000 mls @ 125 mls/hr IV .Q8H BALDOMERO Stop: 08/29/23 01:40 Last Admin: 07/30/23 09:40 Dose: 125 mls/hr Lorazepam 0.5 mg/ Syringe 0.5 mls @ 2 mls/min IV Q4H PRN PRN Reason: Anxiety/Agitation Stop: 08/29/23 01:40 Last Admin: 07/30/23 13:25 Dose: 2 mls/min Ceftriaxone Sodium 1,000 mg/ (Dextrose) 50 mls @ 100 mls/hr IV Q24H BALDOMERO; Protocol Stop: 08/09/23 08:59 Last Infusion: 07/30/23 11:44 Dose: Infused Ibuprofen (Ibuprofen 200 Mg Tab) 200 mg PO Q6H PRN PRN Reason: pain Stop: 08/29/23 12:24 Lorazepam (Lorazepam 1 Mg Tab) 2 mg PO UD PRN; Protocol PRN Reason: EtOH Withdrawal AWSS Score 8,9 Stop: 08/29/23 16:14 Lorazepam (Lorazepam 1 Mg Tab) 3 mg PO ONCE PRN; Protocol PRN Reason: EtOH Withdrawal AWSS Score 10 & above Lorazepam (Lorazepam 1 Mg Tab) 1 mg PO UD PRN; Protocol PRN Reason: EtOH Withdrawal AWSS Score 6,7 Stop: 08/29/23 16:14 Metoprolol Succinate (Metoprolol Succ 25mg Ext Rel Tab) [facility] [place] Stop: 08/29/23 08:59 Last Admin: 07/30/23 09:40 Dose: 25 mg Miscellaneous (Remove Lidoderm Patch) 1 each N/A DAILY@0130 ONE Stop: 07/31/23 01:31 Nitroglycerin (Nitroglycerin Sl 0.4 Mg/Tab Tab) 0.4 mg SL Q5M PRN PRN Reason: Chest Pain Stop: 08/29/23 01:40 Thiamine HCl (Thiamine Hcl 100 Mg Tab) 100 mg PO [facility] Stop: 08/29/23 16:14
[2023-07-30 08:46] LABS: Phosphorus 4.5 mg/dl (2.5-4.9)
[2023-07-30] MEDS ORDERED: METOPROLOL TARTRATE 50 MG TAB PO SCH (09:00)
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
[2023-07-30] MEDS: POTASSIUM CHLORIDE / WTR 10 MEQ/100 ML PLCT IV SCH ×2 (09:24→11:07)
[2023-07-30] MEDS: cefTRIAXone SODIUM 1,000 MG in DEXTROSE 5 % MINI-B 50 ML IV SCH (09:25)
[2023-07-30] MEDS: METOPROLOL SUCC 25MG EXT REL TAB PO SCH (09:40)
--- NOTE | 2023-07-30 09:47 | Gastrointestinal Consultation ---
Date of Consultation July 30, 2023 Assessment & Plan (1) Elevated bilirubin: Her LFT's are elevated in the pattern seen with alcoholic liver disease. She knows she has this and this elevation is chronic. She has stopped drinking or is drinking in limited manner with glass of wine at dinner a couple of times per week. It is possible she also has Gilbert's on top of the alcoholic liver disease. It can takes months for elevated liver enzymes to resolve with history of alcohol related liver disease. This should not preclude her from being admitted to psychiatry floor for evaluation and treatment. The only thing that needs to be done is to follow LFT's periodically and for her to stay off alc ohol. History of Present Illness Reason for Consultation: elevated LFT's Attending Physician: Donn Kilne MD History of Present Illness 28 year old female who is admitted with suicidal ideation and found to have elevated LFT's that precluded her from going to psychiatric floor. She tells me that her LFT's have been elevated for a while and determined to be related to alcohol abuse. She is unaware of the magnitude of the elevation. She has not been drinking for several months now. She has no GI symptoms. No abdominal pain, no nausea or vomiting. She does take meds for anxiety, depression and sleep and took too many ambien and seroquel leading to admission. There is no family history of liver disease. She has no history of IV drug abuse. Allergies Allergy/AdvReac Type Severity Reaction Status Date / Time gluten Allergy Intermediate CELIAC Unverified 04/22/16 22:29 DISEASE Home Medications Medication Instructions Recorded Confirmed Type metoprolol tartrate 50 mg tablet 50 mg PO QAM 07/29/23 07/29/23 History ondansetron 4 mg disintegrating 4 mg PO DIRECTED PRN Nausea And 07/29/23 07/29/23 History tablet Vomiting Patient History Social History Smoking Status: Never smoker Hx Alcohol Use: Yes Alcohol type: other Hx Substance Use: Yes (pt denied, + marijuana) Last Used Substance: Unknown Last Used Substance Other:: pt denying any illicit drugs Beliefs That Will Affect Care: None Current Living Situation: Alone Feels Safe at Home: Yes and No Is there a partner from a previous relationship who is making you feel unsafe now?: No Any Concerns about Your Family Situation: Yes (not talking to mother/father) Would You Like to Speak to Someone About Your Situation: Yes (psych consult placed) Safety Concerns: Afraid for Self Gender Identity: Female Assistive Devices: None Review of Systems Review of Systems: All systems reviewed & are unremarkable except as noted in HPI & below Physical Exam Constitutional: WD/WN, vitals as above no acute distress Eyes: PERRL, conjunctivae normal, anicteric sclerae sclerae not anicteric ENMT: external ear and nose normal, oropharynx normal Neck: trachea midline, no thyromegaly Respiratory: normal respiratory effort, lungs clear to auscultation Cardiovascular: RRR, no murmur, no edema Gastrointestinal (Abdomen): normal bowel sounds, soft, nontender, no hepatosplenomegaly Musculoskeletal: Extremities: no cyanosis and no clubbing Skin: no rashes, warm and dry Neurologic: PERRL, EOMI, accommodation nl, no face palsy, no dysarthria Psychiatric: Orientation: alert and oriented x 3 Results & Data Vital Signs (Past 12 Hours) Vital Signs Temp Pulse Pulse Resp BP Pulse Ox O2 Del Method 07/30/23 07:56 36.6 C 84 16 127/72 99 Room Air 07/30/23 01:47 Room Air 07/30/23 01:45 Room Air 07/30/23 01:44 82 07/30/23 01:41 36.5 C 81 18 124/80 100 Room Air 07/30/23 01:41 36.8 C 78 20 145/92 H 98 Room Air 07/30/23 01:00 101 H 20 160/120 H 97 Room Air Laboratory Results 07/30/23 07/29/23 07/29/23 Range/Units 05:21 14:25 14:10 WBC 6.86 6.85 (4.8-10.8) K/ul RBC 3.67 L 4.14 L (4.20-5.40) M/uL Hgb 10.9 L 12.4 (12.0-16.0) g/dl Hct 31.7 L 35.0 L (37.0-47.0) % MCV 86.4 84.5 (80.0-100.0) fL MCH 29.7 30.0 (25.0-34.0) pg MCHC 34.4 35.4 (32.0-36.0) g/dL RDW Std Deviation 60.0 H 57.0 H (36.4-46.3) fL RDW Coeff of Ken 19.0 H 18.8 H (11.5-14.5) % Plt Count 262 321 (130-400) K/uL MPV 9.6 9.5 (9.4-12.4) fL Immature Gran % (Auto) 0.3 0.3 % Neut % (Auto) 60.1 70.9 % Lymph % (Auto) 28.3 20.9 % [place] % (Auto) 9.0 7.4 % Eos % (Auto) 1.9 0.1 % Baso % (Auto) 0.4 0.4 % Neut # (Auto) 4.12 4.85 (1.40-6.50) K/uL Lymph # (Auto) 1.94 1.43 (1.20-3.40) K/uL [place] # (Auto) 0.62 H 0.51 (0.11-0.59) K/uL Eos # (Auto) 0.13 0.01 (0.00-0.50) K/uL Baso # (Auto) 0.03 0.03 (0.00-0.20) K/uL Immature Gran # (Auto) 0.02 0.02 (0.01-0.20) K/uL Sodium 135 L 136 (136-145) mmol/L Potassium 3.4 L 3.1 L (3.5-5.1) mmol/L Chloride 102 99 (98-107) mmol/L Carbon Dioxide 23 26 (21-32) mmol/L Anion Gap 10 11 (3-11) BUN 4 L 5 L (6-23) mg/dl Creatinine 0.58 L 0.67 (0.6-1.2) mg/dl Est Cr Clr Drug Dosing 153.4 Not Reportable Est GFR ( Amer) 146.4 139.6 ml/min Est GFR (Non-Af Amer) 126.3 120.5 ml/min BUN/Creatinine Ratio 6.9 L 7.5 L (10-20) Glucose 63 L 77 (70-99(Fasting)) mg/dl Calcium 8.8 9.9 (8.6-10.3) mg/dl Phosphorus 4.5 (2.5-4.9) mg/dl Magnesium 1.7 (1.7-2.4) mg/dl Total Bilirubin 4.4 H 5.3 H (0.2-1.0) mg/dl Direct Bilirubin 1.1 H (0-0.2) mg/dl AST 139 H 115 H (13-39) U/L ALT 38 42 (7-52) U/L Alkaline Phosphatase 108 H 112 H (34-104) U/L Total Protein 6.6 8.1 (6.0-8.3) gm/dl Albumin 3.8 4.6 (3.4-5.0) gm/dl Globulin 3.5 (2.5-4.0) gm/dl Albumin/Globulin Ratio 1.3 (0.9-2) Lipase 5 L (11-82) U/L TSH 0.785 (0.300-4.500) uIu/ml HCG, Qual Negative (Negative) Urine Color Yellow Urine Appearance Clear (Clear) Urine pH 6.0 (4.5-7.5) Ur Specific [place] 1.004 (1.000-1.030) Urine Protein Negative (Negative) Urine Glucose (UA) Negative (Negative) Urine Ketones Trace H (Negative) Urine Blood Negative (Negative) Urine Nitrite Positive A (Negative) Urine Bilirubin Negative (Negative) Urine Urobilinogen Negative (Negative) Ur Leukocyte Esterase 2+ H (Negative) Urine RBC 0-4 (0-4) /hpf Urine WBC 10-30 H (0-5) /hpf Ur Epithelial Cells 5-10 H (0-5) /lpf Urine Bacteria 1+ H (Negative) Salicylates < 3.0 L (3.0-30) mg/dl Urine Opiates Screen Neg (Neg) Ur Methadone, Qual Neg (Neg) Acetaminophen < 3 L (10-30) ug/ml Urine Barbiturates Neg (Neg) Ur Phencyclidine (PCP) Neg (Neg) U Amphetamin/Meth Scrn Neg (Neg) MDMA (Ecstasy) Screen Neg (Neg) U Benzodiazepines Scrn Neg (Neg) Ur Cocaine Metabolite Neg (Neg) U Marijuana (THC) Screen Pos H (Neg) U Marijuana THC Carboxy Pending Drug Screen Comment Pending Ethyl Alcohol mg/dL < 10.0 (<10.0) mg/dl SARS-CoV-2, RNA, NAAT NEGATIVE (NEGATIVE) Diagnostic Findings Liver Ultrasound 07/29/23 16:22 US liver CLINICAL HISTORY: elevated bilirubin COMPARISON STUDY: KUB June 18, 2015. FINDINGS: Hepatic echogenicity is mildly increased. Size of the liver is normal. There are no hepatic lesions. There is no biliary ductal dilatation. Common bile duct measures 3 mm in caliber. The gallbladder is normal. There are are no gallstones. There is no right hydronephrosis. Pancreas is unremarkable by sonography. IMPRESSION: 1. No gallstones or biliary ductal dilatation. 2. Increased hepatic echogenicity suggestive of hepatic steatosis. ACT 112: Negative or not required by law. Electronically signed by: Triston Dewey M.D. 07/29/2023 5:20 PM Abdomen/Pelvis CT 07/29/23 18:24 CT OF THE ABDOMEN AND PELVIS WITH CONTRAST CLINICAL HISTORY: abdominal pain; elevated bilirubin COMPARISON STUDY: Right upper quadrant ultrasound performed earlier today. TECHNIQUE: Following IV administration of 88 mL of Optiray, axial images of the abdomen and pelvis were obtained from the lung bases to the proximal femurs. Images were reviewed in the axial, sagittal, and coronal planes. IV contrast was administered without complication. Automated exposure control was utilized for the study. A dose lowering technique was utilized adhering to the principles of ALARA. CT DOSE: 511.2 mGy.cm FINDINGS: Lung bases are unremarkable. No pneumatosis, free air or portal venous gas is present. There is hepatic steatosis. Size of the liver is normal. No hepatic lesions are identified. There is no biliary or pancreatic ductal dilatation. No peripancreatic or pericholecystic infiltration is present. Spleen, adrenal glands and kidneys are normal. There is no hydronephrosis. Pancreas is unremarkable. There is severe narrowing of the proximal celiac axis. The narrowing and configuration suggest median arcuate ligament as the etiology. The main, right and left portal veins are patent. There is no ascites. Caliber and wall thickness of small and large bowel are normal. The appendix is normal. Ovaries are not enlarged. There is subtle subchondral sclerosis within the bilateral femoral heads without collapse. No acute fractures are identified within the visualized skeletal structures. IMPRESSION: 1. Hepatic steatosis. Normal liver morphology. 2. No biliary or pancreatic ductal dilatation. 3. 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 4. Possible avascular necrosis of the bilateral femoral heads without collapse. 5. No bowel obstruction. No bowel wall thickening. Normal appendix. ACT 112: Negative or not required by law. Electronically signed by: Triston Dewey M.D. 07/29/2023 7:14 PM
--- NOTE | 2023-07-30 10:48 | Surgery Consultation ---
Date of Consultation July 30, 2023 Assessment & Plan (1) Median arcuate ligament syndrome: Her CT results and images were personally viewed and interpreted by myself Is unsure if she truly has been directed ligament syndrome, she certainly clinically does not have any symptoms of this Also this patient with SMA and collateral flow, there would be no ischemic changes to her intestines No plans for any surgical intervention Surgery will sign off at this time, please call with any questions or concerns History of Present Illness Reason for Consultation: Median arcuate ligament syndrome Attending Physician: Donn Kline MD History of Present Illness This is a 28-year-old female who presented yesterday for a psychiatric eval uation. She was complaining of abdominal pain today ordered a CT scan of the abdomen which revealed median arcuate ligament syndrome compressing the celiac axis. She currently has no abdominal pain. She states often when she will get heartburn crampy abdominal pain. She is unsure if this is related to eating. There is no radiation of the pain. She has no vascular disease that she knows of. She had regular bowel movements. She does states she has episodes of emesis periodically. Allergies Allergy/AdvReac Type Severity Reaction Status Date / Time gluten Allergy Intermediate CELIAC Unverified 04/22/16 22:29 DISEASE Home Medications Medication Instructions Recorded Confirmed Type metoprolol tartrate 50 mg tablet 50 mg PO QAM 07/29/23 07/29/23 History ondansetron 4 mg disintegrating 4 mg PO DIRECTED PRN Nausea And 07/29/23 07/29/23 History tablet Vomiting Patient History Social History Smoking Status: Never smoker Hx Alcohol Use: Yes Alcohol type: other Hx Substance Use: Yes (pt denied, + marijuana) Last Used Substance: Unknown Last Used Substance Other:: pt denying any illicit drugs Beliefs That Will Affect Care: None Current Living Situation: Alone Feels Safe at Home: Yes and No Is there a partner from a previous relationship who is making you feel unsafe now?: No Any Concerns about Your Family Situation: Yes (not talking to mother/father) Would You Like to Speak to Someone About Your Situation: Yes (psych consult placed) Safety Concerns: Afraid for Self Gender Identity: Female Assistive Devices: None Review of Systems Constitutional: no fever and no chills Eyes: no blind spots and no corrective lenses Ear, Nose, Mouth, Throat: no ear pain and no hearing loss Respiratory: no cough and no dyspnea Cardiovascular: no chest pain and no dyspnea on exertion Gastrointestinal: + nausea and + vomiting; no abdominal pa in, no change in stools and no constipation Genitourinary: no dysuria, no urinary hesitancy and no urinary urgency Musculoskeletal: no back pain and no neck pain Integumentary: no acne, no changing lesions, no skin ulcer and no sores Neurologic: no gait abnormality and no paresthesia Psychiatric: + behavioral changes and + depression Hematologic / Lymphatic: no easy bleeding and no easy bruising Physical Exam Constitutional: WD/WN, vitals as above Eyes: PERRL, conjunctivae normal, anicteric sclerae ENMT: external ear and nose normal, oropharynx normal Neck: trachea midline, no thyromegaly Respiratory: normal respiratory effort, lungs clear to auscultation Cardiovascular: RRR, no murmur, no edema Gastrointestinal (Abdomen): normal bowel sounds, soft, nontender, no hepatosplenomegaly Musculoskeletal: no cyanosis or clubbing, extremities motor strength 5/5 Skin: no rashes, warm and dry Neurologic: PERRL, EOMI, accommodation nl, no face palsy, no dysarthria Psychiatric: A+Ox3, euthymic affect Results & Data Vital Signs (Past 12 Hours) Vital Signs Temp Pulse Pulse Resp BP Pulse Ox O2 Del Method 07/30/23 09:43 103 H 141/99 H 07/30/23 07:56 36.6 C 84 16 127/72 99 Room Air 07/30/23 01:47 Room Air 07/30/23 01:45 Room Air 07/30/23 01:44 82 07/30/23 01:41 36.5 C 81 18 124/80 100 Room Air 07/30/23 01:41 36.8 C 78 20 145/92 H 98 Room Air 07/30/23 01:00 101 H 20 160/120 H 97 Room Air PG Care Time/CCT Total # of Minutes Spent Total Time Spent with Patient: Total time spent is greater than 50% in coordination of care (as documented) at patient's floor/unit and/or counseling patient: Coding Level of Care Code 80140 IN/OBS CONSULT LVL 5,80M Diagnoses Median arcuate ligament syndrome I77.4
[2023-07-30] MEDS ORDERED: POTASSIUM CHLORIDE CRTAB 20 MEQ TABCR PO STA (12:25)
[2023-07-30] MEDS ORDERED: IBUPROFEN 200 MG TAB PO PRN (12:25)
[2023-07-30] MEDS ORDERED: LIDOCAINE 5% 1 PATCH TD STA (12:33)
[2023-07-30] MEDS ORDERED: KETOROLAC TROMETHAMINE 15 MG/ML VIAL IV ONE ×2 (13:49→17:13)
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
[2023-07-30] MEDS ORDERED: LORazepam 1 MG TAB PO PRN (16:15)
[2023-07-30] MEDS ORDERED: Ativan PO Alcohol Withdrawal--Active Protocol PO PRN (16:15)
[2023-07-30] MEDS: GABAPENTIN 300 MG CAP PO SCH ×2 (16:47→20:21)
[2023-07-30] MEDS: clonazePAM 0.5 MG TAB PO PRN (17:21)
[2023-07-30] MEDS: LORazepam 1 MG TAB PO PRN (18:30)
[2023-07-30] MEDS: FOLIC ACID 1 MG TAB PO SCH (18:30)
[2023-07-30] MEDS: THIAMINE HCL 100 MG TAB PO SCH (18:30)
[2023-07-30] MEDS: KETOROLAC TROMETHAMINE 15 MG/ML VIAL IV PRN (22:45)
[2023-07-30] MEDS ORDERED: LABETALOL HCL IV 5 MG/ML 20ML IV STA (23:41)
[2023-07-31] MEDS: clonazePAM 0.5 MG TAB PO PRN (00:16)
[2023-07-31] MEDS: LORazepam 1 MG TAB PO PRN ×8 (00:16→20:55)
[2023-07-31] MEDS: SODIUM CHLORIDE 0.9% 1,000 ML IV SCH ×3 (01:49→18:09)
--- NOTE | 2023-07-31 05:55 | Electrocardiogram Report ---
Test Reason : Blood Pressure : / mmHG Vent. Rate : 085 BPM Atrial Rate : 085 BPM P-R Int : 132 ms QRS Dur : 094 ms QT Int : 382 ms P-R-T Axes : -05 077 073 degrees QTc Int : 454 ms Normal sinus rhythm with sinus arrhythmia Normal ECG When compared with ECG of 25-SEP-2015 10:43, No significant change Confirmed by Octavio Falcon ([id number]) on 07/31/2023 5:54:48 AM Referred By: REFERRED SELF Confirmed By:Octavio Falcon
--- NOTE | 2023-07-31 06:01 | Electrocardiogram Report ---
Test Reason : Blood Pressure : / mmHG Vent. Rate : 077 BPM Atrial Rate : 077 BPM P-R Int : 130 ms QRS Dur : 096 ms QT Int : 410 ms P-R-T Axes : 005 082 080 degrees QTc Int : 463 ms Normal sinus rhythm Normal ECG When compared with ECG of 29-JUL-2023 19:18, (unconfirmed) No significant change was found Confirmed by Octavio Falcon ([id number]) on 07/31/2023 6:01:18 AM Referred By: REFERRED SELF Confirmed By:Octavio Falcon
--- NOTE | 2023-07-31 06:04 | Electrocardiogram Report ---
Test Reason : Blood Pressure : / mmHG Vent. Rate : 095 BPM Atrial Rate : 095 BPM P-R Int : 140 ms QRS Dur : 088 ms QT Int : 408 ms P-R-T Axes : -04 067 058 degrees QTc Int : 512 ms Normal sinus rhythm Prolonged QT Abnormal ECG When compared with ECG of 29-JUL-2023 22:21, (unconfirmed) No significant change was found Confirmed by Octavio Falcon ([id number]) on 07/31/2023 6:03:38 AM Referred By: REFERRED SELF Confirmed By:Octavio Falcon
[2023-07-31] MEDS: KETOROLAC TROMETHAMINE 15 MG/ML VIAL IV PRN ×3 (06:48→20:54)
[2023-07-31] MEDS: cefTRIAXone SODIUM 1,000 MG in DEXTROSE 5 % MINI-B 50 ML IV SCH (08:03)
[2023-07-31] MEDS: GABAPENTIN 300 MG CAP PO SCH ×3 (08:04→20:42)
[2023-07-31] MEDS: METOPROLOL SUCC 25MG EXT REL TAB PO SCH (08:05)
--- NOTE | 2023-07-31 08:10 | Electrocardiogram Report ---
Test Reason : Blood Pressure : / mmHG Vent. Rate : 085 BPM Atrial Rate : 085 BPM P-R Int : 134 ms QRS Dur : 084 ms QT Int : 382 ms P-R-T Axes : 000 068 053 degrees QTc Int : 454 ms Normal sinus rhythm Normal ECG When compared with ECG of 30-JUL-2023 05:34, QT has shortened Confirmed by Nathan Fraser ([id number]) on 07/31/2023 8:10:31 AM Referred By: REFERRED SELF Confirmed By:Nathan Fraser
--- NOTE | 2023-07-31 08:20 | Electrocardiogram Report ---
Test Reason : Blood Pressure : / mmHG Vent. Rate : 076 BPM Atrial Rate : 076 BPM P-R Int : 144 ms QRS Dur : 088 ms QT Int : 404 ms P-R-T Axes : -24 147 149 degrees QTc Int : 454 ms Normal sinus rhythm Right axis deviation Normal ECG When compared with ECG of 30-JUL-2023 20:02, No significant change Confirmed by Nathan Fraser ([id number]) on 07/31/2023 8:20:22 AM Referred By: REFERRED SELF Confirmed By:Nathan Fraser
[2023-07-31 08:43] LABS: Hematocrit (blood only) 30.6 % (37.0-47.0); Mean Corpuscular Hemoglobin 29.4 pg (25.0-34.0); Mean Corpuscular Hgb Conc 32.7 g/dL (32.0-36.0); Platelet Count 260 K/uL (130-400); RDW Coefficient of Variation 19.6 % (11.5-14.5); RDW Standard Deviation 63.6 fL (36.4-46.3); White Blood Count 4.41 K/ul (4.8-10.8)
[2023-07-31] MEDS: THIAMINE HCL 100 MG TAB PO SCH (08:46)
[2023-07-31] MEDS: FOLIC ACID 1 MG TAB PO SCH (08:46)
[2023-07-31 08:59] LABS: Alanine Aminotransferase 27 U/L (7-52); Albumin Globulin Ratio 1.3 (0.9-2); Albumin Level 3.4 gm/dl (3.4-5.0); Alkaline Phosphatase 86 U/L (34-104); Anion Gap 8 (3-11); Aspartate Aminotransferase 57 U/L (13-39); BUN Creatinine Ratio 6.7 (10-20); Bilirubin,Total 2.4 mg/dl (0.2-1.0); Blood Urea Nitrogen 3 mg/dl (6-23); Calcium 8.3 mg/dl (8.6-10.3); Carbon Dioxide 22 mmol/L (21-32); Chloride 109 mmol/L (98-107); Creatinine Clr Calc Pharmacy 197.7 ml/min; Est GFR (African American) > 150.0 ml/min; Est GFR (Non-African American) 137.3 ml/min; Globulin 2.6 gm/dl (2.5-4.0); Glucose 75 mg/dl (70-99(Fasting)); Magnesium 1.7 mg/dl (1.7-2.4); Phosphorus 3.9 mg/dl (2.5-4.9); Potassium 3.2 mmol/L (3.5-5.1); Sodium 139 mmol/L (136-145)
[2023-07-31] MEDS ORDERED: POTASSIUM CHLORIDE CRTAB 20 MEQ TABCR PO STA (09:20)
--- NOTE | 2023-07-31 11:53 | Psychiatric Progress Note ---
Date of Service July 31, 2023 Impression / Recommendations Impression Diagnostically unclear-consistent with unspecified psychosis. The description of erratic behavior, decreased need for sleep, delusions and interactions with police and family following SNRI initiation suggest possible episode of acute gary though today she presents without prominent delusions/flight of ideas/hyperactivity nor classic speech changes. Acute exacerbation of PTSD possible as is concern for possible substance withdrawal presentation from alcohol. Given no recent benzo scripts per PDMP and lack of significant sedation from IV ativan prn raises concern for tolerance from alcohol use though she a dmantly denies any recent use. Certainly also possible that some of her symptoms of psychosis and agitation were set off from overuse of Ambien which can certainly alter memory, cause hallucinations and lead to bizarre behaviors. 07/31/2023: Today presents with some improvement in insight, lessening of anxiety and no signs of any gary nor psychosis. She continues to deny any SI and HI. Remains quite focused on desire for Ambien, benzodiazepines, stimulants and controlled pain medications. She has continued to have periods of BP lability and has been scoring on AWSS but remains insistent that she has not used any alcohol or other substances in months. Collateral from her mother concerning for possible recent substance use and certainly confirmatory of history of substance use. Remains possible that SNRI set off brief episode of gary that is now resolving. Certainly clear history of PTSD which can also impact autonomic nervous system/pain receptors/pain sensitivity and can lead to episodes of mood lability but no signs of acute dysregulation from PTSD symptoms today. Given improved QTc will start olanzapine off-label to help with insomnia. She would like to start and consented to olanzapine. Reviewed side effects including but not limited to: movement (TD, NMS), cardiac (QTc prolongation), and metabolic (stroke, insulin resistance) and necessity for fasting lipid and glucose labwork if on terminal make up operator given appetite stimulation and AIMS done with score of 0. Overall, I spent a total of 60 minutes with this case including review of chart records, review of labwork, review of EKG QTc, direct evaluation of the patient at bedside, counseling the patient, discussion of the patient with the Nurse and with the hospitalist provider, discussion with the psychiatric liason during clinical rounds and documentation in the electronic health record. (1) Acute psychosis: (2) Post traumatic stress disorder (PTSD): Plan -Can discontinue 1-on-1, if attempts to leave AMA please call psych liason so acute safety could be assessed but likely no longer meets 302 criteria -QTc has improved so would discontinue Klonopin and instead will start olanzapine 5mg HS po and additional 5mg TID prn for insomnia if needed for increased sedation effects or for overnight awakening (per her request as she notes she often wakes up) -Would continue AWSS with thiamine and folic acid and ativan for scoring -For acute behavioral emergency would use: Olanzapine 2.5mg IM (and monitor QTc closely, AVOID giving with any concurrent IM or IV benzodiazepines or within 1 hour of IM or IV benzo use) Protective Factors Assessment Employed: Yes Interval History Identifying Information 28 yo woman with history of PTSD, ADHD, anxiety, depression, alcohol use admitted medically after erratic behavior and concern she unintentionally took excessive amounts of Ambien and Seroquel. Psychiatry consulted for recommendations. Chief Complaint "I slept about 2 hours". Subjective Subjective Patient was seen & assessed and interval progress reviewed. Yesterday evening was irritable and wanted to leave AMA and revoked consent for her mother but ultimately agreed to stay. Asked about higher doses of Klonopin for sleep. 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 She reports ongoing physical pain and wishes she could have something more for this but states she is glad to be in the hospital getting medical care and agreeable to remaining in the hospital. She wants to get help sleeping and feels that once her sleep pattern is back to normal she will feel much better. Feels she was more labile yesterday due to learning that she'd need to cancel her long-planned trip to [place] to spend thanksgiving with her cousin but was able to cancel the ticket yesterday and will be able to get a refund which was a big relief for her. Discussed improvement of her QTc and option to consider a more sedating antipsychotic tonight for sleep which she would like to try. She asks at two different points in the conversation about being prescribed Adderall again for ADHD as this was very helpful in the past, reviewed my recommendation that this can worsen sleep and sometimes also trigger gray or psychosis so I would not recommend she be on any stimulants for at least a few weeks of extended mood stabilization. She also feels benzodiazepines are the only thing that works for anxiety/panic attacks. Reviewed my concerns about daily prn benzo use, especially given alcohol use history, and plan to discontinue Klonopin since QTc has improved. She feels her BP/HR changes are due to PTSD symptoms and notes history of BP changes. She continues to adamantly deny any recent alcohol use, benzodiazepine use nor any other substance use. She is future-oriented about returning to therapy at [facility], working with an outpatient psychiatrist and eventually getting a job. She denies SI and HI. She denies any hallucinations, reports none since admission. Denies any paranoia except baseline elevated concerns about safety given her PTSD experiences in the past/hypervigilance. Physical Exam Psychiatric Orientation: alert, oriented x 3 and cooperative Apperance: appropriately dressed Eye Contact: good eye contact Motor Behavior: no abnormal motor movements Speech: normal rate/rhythm/volume of speech Affect: + anxious affect Mood: + anxious mood Thought Process: goal directed thought process Thought Content: reality based without delusions Suicidal Thoughts: denies suicidal thoughts Homicidal Thoughts: denies homicidal thoughts Hallucinations: no auditory hallucinations and no visual hallucinations Cognition: recent memory grossly intact, remote memory grossly intact, attention grossly intact and language grossly intact Insight: + limited insight Judgment: + limited judgement Vital Signs (Past 24 Hours) Last Vital Signs Temp 36.8 C 07/31/23 11:07 Pulse 109 H 07/31/23 11:07 Resp 17 07/31/23 11:07 BP 161/113 H 07/31/23 11:07 Pulse Ox 99 07/31/23 11:07 O2 Del Method Room Air 07/31/23 11:07 Results & Data ([facility]) Laboratory Results Laboratory Results - last 24 hr 07/31/23 07:45 WBC 4.41 L RBC 3.40 L Hgb 10.0 L Hct 30.6 L MCV 90.0 MCH 29.4 MCHC 32.7 RDW Std Deviation 63.6 H RDW Coeff of Ken 19.6 H Plt Count 260 MPV 10.0 Sodium 139 Potassium 3.2 L Chloride 109 H Carbon Dioxide 22 Anion Gap 8 BUN 3 L Creatinine 0.45 L Est Cr Clr Drug Dosing 197.7 Est GFR ( Amer) > 150.0 Est GFR (Non-Af Amer) 137.3 BUN/Creatinine Ratio 6.7 L Glucose 75 Calcium 8.3 L Phosphorus 3.9 Magnesium 1.7 Total Bilirubin 2.4 H AST 57 H ALT 27 Alkaline Phosphatase 86 Total Protein 6.0 Albumin 3.4 Globulin 2.6 Albumin/Globulin Ratio 1.3 Current Inpatient Medications Current Inpatient Medications: Current Inpatient Medications Cefdinir (Cefdinir 300 Mg Cap) 300 mg PO BID BALDOMERO; Protocol Stop: 08/11/23 08:59 Clonazepam (Clonazepam 0.5 Mg Tab) 0.5 mg PO BID PRN PRN Reason: hallucinations, gary Stop: 08/29/23 16:46 Last Admin: 07/31/23 00:16 Dose: 0.5 mg Folic Acid (Folic Acid 1 Mg Tab) 1 mg PO QAM BALDOMERO Stop: 08/29/23 16:14 Last Admin: 07/31/23 08:46 Dose: 1 mg Gabapentin (Gabapentin 300 Mg Cap) 300 mg PO TID BALDOMERO Stop: 08/29/23 15:19 Last Admin: 07/31/23 08:04 Dose: 300 mg Sodium Chloride (Nss) 1,000 mls @ 125 mls/hr IV .Q8H BALDOMERO Stop: 08/29/23 01:40 Last Admin: 07/31/23 10:09 Dose: 125 mls/hr Lorazepam 0.5 mg/ Syringe 0.5 mls @ 2 mls/min IV Q4H PRN PRN Reason: Anxiety/Agitation Stop: 08/29/23 01:40 Last Admin: 07/30/23 13:25 Dose: 2 mls/min Ibuprofen (Ibuprofen 200 Mg Tab) 200 mg PO Q6H PRN PRN Reason: pain Stop: 08/29/23 12:24 Ketorolac Tromethamine (Ketorolac Tromethamine 15 Mg/Ml Vial) 15 mg IV Q6H PRN PRN Reason: Pain Stop: 08/04/23 17:11 Last Admin: 07/31/23 06:48 Dose: 15 mg Lorazepam (Lorazepam 1 Mg Tab) 2 mg PO UD PRN; Protocol PRN Reason: EtOH Withdrawal AWSS Score 8,9 Stop: 08/29/23 16:14 Last Admin: 07/31/23 11:09 Dose: 2 mg Lorazepam (Lorazepam 1 Mg Tab) 3 mg PO ONCE PRN; Protocol PRN Reason: EtOH Withdrawal AWSS Score 10 & above Lorazepam (Lorazepam 1 Mg Tab) 1 mg PO UD PRN; Protocol PRN Reason: EtOH Withdrawal AWSS Score 6,7 Stop: 08/29/23 16:14 Last Admin: 07/31/23 06:49 Dose: 1 mg Metoprolol Succinate (Metoprolol Succ 25mg Ext Rel Tab) [facility] Stop: 08/29/23 08:59 Last Admin: 07/31/23 08:05 Dose: 25 mg Nitroglycerin (Nitroglycerin Sl 0.4 Mg/Tab Tab) 0.4 mg SL Q5M PRN PRN Reason: Chest Pain Stop: 08/29/23 01:40 Thiamine HCl (Thiamine Hcl 100 Mg Tab) 100 mg PO [facility] Stop: 08/29/23 16:14 Last Admin: 07/31/23 08:46 Dose: 100 mg
[2023-07-31] MEDS ORDERED: lisinopril 20 MG TAB PO STA (12:30)
[2023-07-31] MEDS ORDERED: ACETAMINOPHEN 500 MG TAB PO PRN (15:04)
[2023-07-31] MEDS: CYCLOBENZAPRINE HCL 10 MG TAB PO PRN (15:32)
--- NOTE | 2023-07-31 15:54 | Gastroenterology Progress Note ---
Date of Service July 31, 2023 Assessment & Plan (1) Elevated bilirubin: Plan: LFT's improved. Perhaps part of the elevation was injury from meds she took. Nothing further to add. Will sign off. Please reconsult if GI services needed again. Admission and Anticipated Discharge Date Admission Date: July 29, 2023 Subjective Psychiatry actively involved. LFT's markedly improved Results & Data Vital Signs (Past 12 Hours) Vital Signs Temp Pulse Pulse Resp BP BP Pulse Ox 07/31/23 15:13 36.8 C 78 18 174/119 H 98 07/31/23 12:34 78 17 172/131 H 07/31/23 11:07 36.8 C 109 H 17 161/113 H 99 07/31/23 10:07 86 177/128 H 187/137 H 07/31/23 08:00 65 07/31/23 07:10 36.4 C L 108 H 19 183/130 H 99 07/31/23 06:41 36.5 C 92 H 20 142/100 H 97 O2 Del Method 07/31/23 15:13 Room Air 07/31/23 12:34 07/31/23 11:07 Room Air 07/31/23 10:07 07/31/23 08:00 07/31/23 07:10 Room Air 07/31/23 06:41 Room Air Laboratory Results 07/31/23 Range/Units 07:45 WBC 4.41 L (4.8-10.8) K/ul RBC 3.40 L (4.20-5.40) M/uL Hgb 10.0 L (12.0-16.0) g/dl Hct 30.6 L (37.0-47.0) % MCV 90.0 (80.0-100.0) fL MCH 29.4 (25.0-34.0) pg MCHC 32.7 (32.0-36.0) g/dL RDW Std Deviation 63.6 H (36.4-46.3) fL RDW Coeff of Ken 19.6 H (11.5-14.5) % Plt Count 260 (130-400) K/uL MPV 10.0 (9.4-12.4) fL Sodium 139 (136-145) mmol/L Potassium 3.2 L (3.5-5.1) mmol/L Chloride 109 H (98-107) mmol/L Carbon Dioxide 22 (21-32) mmol/L Anion Gap 8 (3-11) BUN 3 L (6-23) mg/dl Creatinine 0.45 L (0.6-1.2) mg/dl Est Cr Clr Drug Dosing 197.7 ml/min Est GFR ( Amer) > 150.0 ml/min Est GFR (Non-Af Amer) 137.3 ml/min BUN/Creatinine Ratio 6.7 L (10-20) Glucose 75 (70-99(Fasting)) mg/dl Calcium 8.3 L (8.6-10.3) mg/dl Phosphorus 3.9 (2.5-4.9) mg/dl Magnesium 1.7 (1.7-2.4) mg/dl Total Bilirubin 2.4 H (0.2-1.0) mg/dl AST 57 H (13-39) U/L ALT 27 (7-52) U/L Alkaline Phosphatase 86 (34-104) U/L Total Protein 6.0 (6.0-8.3) gm/dl Albumin 3.4 (3.4-5.0) gm/dl Globulin 2.6 (2.5-4.0) gm/dl Albumin/Globulin Ratio 1.3 (0.9-2)
[2023-07-31] MEDS ORDERED: oxyCODONE HCL IR 5 MG TAB (IMMEDIATE RELEASE) PO STA (18:11)
[2023-07-31] MEDS ORDERED: OLANZapine 5 MG TABLET PO PRN (18:22)
[2023-07-31] MEDS ORDERED: lisinopril 20 MG TAB PO SCH (21:00)
[2023-07-31] MEDS ORDERED: OLANZapine 5 MG TABLET PO SCH (21:00)
[2023-07-31] MEDS: OLANZapine 5 MG TABLET PO PRN (23:35)
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
[2023-08-01] MEDS: OLANZapine 5 MG TABLET PO PRN (02:13)
[2023-08-01] MEDS: LORazepam 1 MG TAB PO PRN ×3 (02:21→22:44)
[2023-08-01] MEDS: SODIUM CHLORIDE 0.9% 1,000 ML IV SCH ×2 (02:23→10:07)
[2023-08-01 07:38] LABS: Basophils # (auto) 0.03 K/uL (0.00-0.20); Basophils % (auto) 0.7 %; Eosinophils # (auto) 0.18 K/uL (0.00-0.50); Eosinophils % (auto) 4.1 %; Hematocrit (blood only) 30.7 % (37.0-47.0); Hemoglobin 10.2 g/dl (12.0-16.0); Immature Granulocytes # (auto) 0.01 K/uL (0.01-0.20); Immature Granulocytes % (auto) 0.2 %; Lymphocytes # (auto) 1.95 K/uL (1.20-3.40); Lymphocytes % (auto) 44.9 %; Mean Corpuscular Hemoglobin 29.8 pg (25.0-34.0); Mean Corpuscular Hgb Conc 33.2 g/dL (32.0-36.0); Mean Corpuscular Volume 89.8 fL (80.0-100.0); Mean Platelet Volume 9.4 fL (9.4-12.4); Monocytes # (auto) 0.34 K/uL (0.11-0.59); Monocytes % (auto) 7.8 %; Neutrophils # (auto) 1.83 K/uL (1.40-6.50); Neutrophils % (auto) 42.3 %; Platelet Count 254 K/uL (130-400); RDW Coefficient of Variation 20.1 % (11.5-14.5); RDW Standard Deviation 64.9 fL (36.4-46.3); Red Blood Count 3.42 M/uL (4.20-5.40); White Blood Count 4.34 K/ul (4.8-10.8)
[2023-08-01 08:22] LABS: Alanine Aminotransferase 23 U/L (7-52); Albumin Globulin Ratio 1.3 (0.9-2); Albumin Level 3.1 gm/dl (3.4-5.0); Alkaline Phosphatase 78 U/L (34-104); Anion Gap 6 (3-11); Aspartate Aminotransferase 48 U/L (13-39); Bilirubin,Total 1.2 mg/dl (0.2-1.0); Blood Urea Nitrogen < 2 mg/dl (6-23); Calcium 8.2 mg/dl (8.6-10.3); Carbon Dioxide 21 mmol/L (21-32); Chloride 114 mmol/L (98-107); Creatinine Clr Calc Pharmacy 185.4 ml/min; Est GFR (African American) > 150.0 ml/min; Est GFR (Non-African American) 134.4 ml/min; Globulin 2.4 gm/dl (2.5-4.0); Glucose 93 mg/dl (70-99(Fasting)); Magnesium 1.7 mg/dl (1.7-2.4); Phosphorus 4.2 mg/dl (2.5-4.9); Potassium 3.1 mmol/L (3.5-5.1); Sodium 141 mmol/L (136-145); Total Protein 5.5 gm/dl (6.0-8.3)
[2023-08-01] MEDS: GABAPENTIN 600 MG TAB PO SCH ×3 (09:09→20:00)
[2023-08-01] MEDS: METOPROLOL SUCC 50MG EXT REL TAB PO SCH (09:09)
[2023-08-01] MEDS: KETOROLAC TROMETHAMINE 15 MG/ML VIAL IV PRN ×2 (09:09→18:03)
[2023-08-01] MEDS: THIAMINE HCL 100 MG TAB PO SCH (09:10)
[2023-08-01] MEDS: FOLIC ACID 1 MG TAB PO SCH (09:10)
[2023-08-01] MEDS: CEFDINIR 300 MG CAP PO SCH ×2 (09:10→19:59)
[2023-08-01] MEDS: CYCLOBENZAPRINE HCL 10 MG TAB PO PRN ×3 (09:10→22:45)
--- NOTE | 2023-08-01 10:03 | XRay Report ---
XR cervical spine 2 or 3V HISTORY: 28 years-old Female 06/27 pain acute neck pain COMPARISON: None TECHNIQUE: 3 views of the cervical spine FINDINGS: No acute fracture, subluxation or significant degenerative changes. No prevertebral edema. The imaged lung apices appear clear. IMPRESSION: No acute fracture or subluxation. ACT 112: Negative or not required by law. The above report was generated using voice recognition software. It may contain grammatical, syntax o r spelling errors. Electronically signed by: Polo Cote M.D. 08/01/2023 10:02 AM
[2023-08-01] MEDS ORDERED: POTASSIUM CHLORIDE CRTAB 20 MEQ TABCR PO STA (10:07)
--- NOTE | 2023-08-01 10:36 | XRay Report ---
XR lumbar spine 2-3V CLINICAL HISTORY: 06/27 pain TECHNIQUE: 3 views of the lumbar spine were obtained. Comparison: None available at the time of this dictation. FINDINGS: There is no evidence of an acute fracture. Vertebral body heights and disc spaces are well maintained . The alignment is normal. No soft tissue abnormality is seen. IMPRESSION: No acute fracture or subluxation. ACT 112: Negative or not required by law. Electronically signed by: Loc Tineo M.D. 08/01/2023 10:35 AM
[2023-08-01] MEDS: LORazepam 0.5 MG in SYRINGE 0.25 ML IV PRN ×2 (13:29→18:04)
--- NOTE | 2023-08-01 13:37 | Hospitalist Progress Note ---
Date of Service August 01, 2023 Assessment & Plan (1) Acute psychosis: Plan: 28-year-old female with past med significant for intermittent palpitation, celiac disease, chronic left hip pain, major depression, mixed anxiety disorder, history of alcohol abuse, PTSD admitted for mental health evaluation but with persistent tachycardia and BP elevation. Acute psychosis Visual and auditory hallucinations Drug overdose Concern for overdose with home Ambien and Seroquel ER discussed case with poison control- recommended bicarb if QRS is greater than 120 and IV magnesium if QTc greater than 500, IV Ativan as needed for agitation Psychiatry consulted- appreciate recs - pt can't leave AMA. -concern for etoh and other drug abuse given persistent tachycardia and elevated BP -on thiamine, folic acid, gabapentin, ativan -zyprexa 5mg qhs -AWSS protocol One-on-one has been discontinued on 08/01 Pt requested signed doctor's note for plane ticket refund Tachycardia and hypertension Persistent, possibly in withdrawal from exogenous source Questionable component of pain On metoprolol 50mg qam and lisinopril 40mg qpm currently Pain control (see below) Clonidine to be added with persistence UTI UA suggestive of infection Urine cx growing pansensitive E coli Transitioned from IV Rocephin (2 days) to PO cefdinir, treat for 10 days total Chronic Pain Possible Avascular necrosis of bilateral femoral heads Pt with chronic pain, states exacerbated by recent traumatic fall Pain in neck, lower back going down legs and hips Orthopedics consulted re hips- no procedure at this time, treat psychiatric issues first, follow up as outpt (if surgery needed, may need tertiary center) XR cervical and lumbar spine ordered to be done AM 08/01 Pt receiving multiple doses of benzos, needs cautious concurrent use of narcotics (however pt with repeated requests) -one dose of oxycodone 5mg ordered on 07/31 -gabapentin dose increased from 300mg TID to 600mg TID -Toradol dose increased from 15mg q6h to 30mg q6h prn -prn PO advil and tylenol 1000mg q8h also ordered -Flexeril 10mg TID prn ordered -consider addition of med SNRI duloxetine/cymbalta for additional pain control with psych's approval (given prior use of SSRI Effexor in the past) if pain control still not achieved -consider pain management consult -PT order placed for lower back pain- appreciate recs Transaminitis Elevated LFTs Liver enzymes elevated but downtrending Tylenol level unremarkable CT abdomen pelvis showed hepatic steatosis, normal liver morphology Liver ultrasound showed hepatic steatosis GI consulted - noted "Her LFT's are elevated in the pattern seen with alcoholic liver disease. She knows she has this and this elevation is chronic. She has stopped drinking or is drinking in limited manner with glass of wine at dinner a couple of times per week. It is possible she also has Gilbert's on top of the alcoholic liver disease. It can takes months for elevated liver enzymes to resolve with history of alcohol related liver disease. This should not preclude her from being admitted to psychiatry floor for evaluation and treatment. The only thing that needs to be done is to follow LFT's periodically and for her to stay off alcohol." Continue to monitor levels UTI UA suggestive of infection, urine cx growing pansensitive E coli Transitioned from Rocephin (2 days) to PO cefdinir, treat for 10 days total Possible Median arcuate ligament syndrome noted on ct scan Consulted gen surgery - no procedure needed at this time, no abd. pain - surgery signed off Diet: Gluten free, safe tray DVT prophylaxis: SCDs, ambulation as tolerated CODE STATUS: Full code Disposition: currently awaiting medical stability for psych placement Admission and Anticipated Discharge Date Admission Date: July 29, 2023 Subjective Pt seen, sleepy. Per nursing has been sleeping for some time. Took zyprexa overnight. States that she was just tired, pain currently controlled. Review of Systems Review of Systems: All systems reviewed & are unremarkable except as noted in Subjective Physical Exam Physical Exam: General: Alert, oriented. No acute distress Skin: No noted rashes or bruises Psych: Appropriate mood and affect Neuro: No gross deficits HEENT: NC/AT, PERRLA, EOMI, oropharynx moist. Chest: Nontender to palpation. CV: tachycardic, No murmurs appreciated Resp: Breath sounds clear bilaterally, no increased effort of breathing. No crackles/rhonchi/rales. Abdomen: Soft, nontender, nondistended. Extremities: No edema in lower extremities bilaterally. Results & Data Results & Data Vital Signs (Past 12 Hours) Vital Signs Temp Pulse Pulse Resp BP BP Pulse Ox 08/01/23 12:08 36.8 C 75 18 152/114 H 98 08/01/23 08:10 70 08/01/23 07:47 36.5 C 88 18 153/113 H 97 08/01/23 02:16 36.2 C L 65 20 162/116 H 98 O2 Del Method 08/01/23 12:08 Room Air 08/01/23 08:10 08/01/23 07:47 Room Air 08/01/23 02:16 Room Air
[2023-08-01] MEDS ORDERED: OLANZapine 5 MG TABLET PO PRN (14:54)
--- NOTE | 2023-08-01 14:54 | Psychiatric Progress Note ---
Date of Service August 01, 2023 Impression / Recommendations Impression Diagnostically unclear-consistent with unspecified psychosis. The description of erratic behavior, decreased need for sleep, delusions and interactions with police and family following SNRI initiation suggest possible episode of acute gary though today she presents without prominent delusions/flight of ideas/hyperactivity nor classic speech changes. Acute exacerbation of PTSD possible as is concern for possible substance withdrawal presentation from alcohol. Given no recent benzo scripts per PDMP and lack of significant sedation from IV ativan prn raises concern for tolerance from alcohol use though she a damantly denies any recent use. Certainly also possible that some of her symptoms of psychosis and agitation were set off from overuse of Ambien which can certainly alter memory, cause hallucinations and lead to bizarre behaviors. 08/01/2023: Ongoing mood stability with improved sleep with olanzapine which she tolerated well and wishes to continue at consolidated dose of 15mg HS po. She denies current SI and HI, shows no signs of gary nor psychosis and can speak to how she meets her basic needs and is no longer felt to meet 302 criteria. She is not interested in inpatient psychiatric treatment once medically stable but is agreeable to ongoing outpatient therapy and outpatient psychiatry follow-up. Now that her sleep has improved she feels her biggest challenge is her ADHD symptoms for which she wants to start Adderall. She becomes anxious and tearful in discussing her desire to restart this. Reviewed multiple times that this would be contraindicated in setting of recent poor sleep, psychosis and possible SNRI- induced gary and that ongoing mood stability and sleep would need to occur with subsequent discussion of risks/benefits/alternatives with her outpatient psychiatric provider which she is agreeable with. She remains quite medication focused and seeking in regard to controlled substances-pain medications, anxiolytics and stimulants. Overall, I spent a total of 60 minutes with this case including review of chart records, review of labwork, direct evaluation of the patient at bedside, counseling the patient, discussion of the patient with the Nurse and with the hospitalist provider, discussion with the psychiatric liason during clinical rounds and documentation in the electronic health record. (1) Acute psychosis: (2) Post traumatic stress disorder (PTSD): (3) Insomnia: (4) Anxiety: Plan -She can leave AMA if desired, no longer meets 302 criteria -Consolidate to olanzapine 15mg HS po for sleep/mood stabilization and additional olanzapine 5mg daily prn for agitation/insomnia -Would continue AWSS with thiamine and folic acid and ativan for scoring Protective Factors Assessment Employed: Yes Interval History Identifying Information 28 yo woman with history of PTSD, ADHD, anxiety, depression, alcohol use admitted medically after erratic behavior and concern she unintentionally took excessive amounts of Ambien and Seroquel. Psychiatry consulted for recommendations. Chief Complaint "I slept the best I have in forever". Subjective Subjective Patient was seen & assessed and interval progress reviewed. Reports excellent sleep with olanzapine last night. Denies any side effects except some grogginess today, would like to continue with olanzapine and at higher dose based on use of two prns. Remains very focused on when she can restart Adderall which she took in the past while living in [place]. She reports taking this for an extended amount of time and being able to function well and "like someone normal" while on it. Reviewed again why this would be contraindicated currently. She is tearful at times when discussing desire to get back on Adderall again. Physical Exam Psychiatric Orientation: alert, oriented x 3 and cooperative Apperance: appropriately dressed Eye Contact: good eye contact Motor Behavior: no abnormal motor movements Speech: normal rate/rhythm/volume of speech Affect: + anxious affect and + tearful affect Mood: + anxious mood Thought Process: linear/logical thought process and + perseveration (about Adderall) Thought Content: reality based without delusions Suicidal Thoughts: denies suicidal thoughts Homicidal Thoughts: denies homicidal thoughts Hallucinations: no auditory hallucinations and no visual hallucinations Cognition: recent memory grossly intact, remote memory grossly intact, attention grossly intact and language grossly intact Insight: + limited insight Judgment: + limited judgement Vital Signs (Past 24 Hours) Last Vital Signs Temp 36.8 C 08/01/23 12:08 Pulse 75 08/01/23 12:08 Resp 18 08/01/23 12:08 BP 152/114 H 08/01/23 12:08 Pulse Ox 98 08/01/23 12:08 O2 Del Method Room Air 08/01/23 12:08 Results & Data ([facility]) Laboratory Results Laboratory Results - last 24 hr 08/01/23 07:09 WBC 4.34 L RBC 3.42 L Hgb 10.2 L Hct 30.7 L MCV 89.8 MCH 29.8 MCHC 33.2 RDW Std Deviation 64.9 H RDW Coeff of Ken 20.1 H Plt Count 254 MPV 9.4 Immature Gran % (Auto) 0.2 Neut % (Auto) 42.3 Lymph % (Auto) 44.9 Ness % (Auto) 7.8 Eos % (Auto) 4.1 Baso % (Auto) 0.7 Neut # (Auto) 1.83 Lymph # (Auto) 1.95 Ness # (Auto) 0.34 Eos # (Auto) 0.18 Baso # (Auto) 0.03 Immature Gran # (Auto) 0.01 Sodium 141 Potassium 3.1 L Chloride 114 H Carbon Dioxide 21 Anion Gap 6 BUN < 2 L Creatinine 0.48 L Est Cr Clr Drug Dosing 185.4 Est GFR ( Amer) > 150.0 Est GFR (Non-Af Amer) 134.4 BUN/Creatinine Ratio TNP Glucose 93 Calcium 8.2 L Ionized Calcium 1.16 Phosphorus 4.2 Magnesium 1.7 Total Bilirubin 1.2 H AST 48 H ALT 23 Alkaline Phosphatase 78 Total Protein 5.5 L Albumin 3.1 L Globulin 2.4 L Albumin/Globulin Ratio 1.3 Current Inpatient Medications Current Inpatient Medications: Current Inpatient Medications Acetaminophen (Acetaminophen 500 Mg Tab) 1,000 mg PO Q8H PRN PRN Reason: Pain or Fever Stop: 08/30/23 15:03 Cefdinir (Cefdinir 300 Mg Cap) 300 mg PO BID [facility]; Protocol Stop: 08/11/23 08:59 Last Admin: 08/01/23 09:10 Dose: 300 mg Cyclobenzaprine HCl (Cyclobenzaprine Hcl 10 Mg Tab) 10 mg PO TID PRN PRN Reason: Muscle Spasm Stop: 08/30/23 15:05 Last Admin: 08/01/23 13:29 Dose: 10 mg Folic Acid (Folic Acid 1 Mg Tab) 1 mg PO QAM [facility] Stop: 08/29/23 16:14 Last Admin: 08/01/23 09:10 Dose: 1 mg Gabapentin (Gabapentin 600 Mg Tab) 600 mg PO TID [facility] Stop: 08/31/23 08:59 Last Admin: 08/01/23 13:10 Dose: 600 mg Lorazepam 0.5 mg/ Syringe 0.5 mls @ 2 mls/min IV Q4H PRN PRN Reason: Anxiety/Agitation Stop: 08/29/23 01:40 Last Admin: 08/01/23 13:29 Dose: 2 mls/min Ibuprofen (Ibuprofen 200 Mg Tab) 200 mg PO Q6H PRN PRN Reason: pain Stop: 08/29/23 12:24 Ketorolac Tromethamine (Ketorolac Tromethamine 15 Mg/Ml Vial) 30 mg IV Q6H PRN PRN Reason: Pain Stop: 08/04/23 18:29 Last Admin: 08/01/23 09:09 Dose: 30 mg Lisinopril (Lisinopril 20 Mg Tab) 20 mg PO QPM BALDOMERO Stop: 08/30/23 20:59 Last Admin: 07/31/23 20:42 Dose: 20 mg Lorazepam (Lorazepam 1 Mg Tab) 2 mg PO UD PRN; Protocol PRN Reason: EtOH Withdrawal AWSS Score 8,9 Stop: 08/29/23 16:14 Last Admin: 07/31/23 18:06 Dose: 2 mg Lorazepam (Lorazepam 1 Mg Tab) 3 mg PO ONCE PRN; Protocol PRN Reason: EtOH Withdrawal AWSS Score 10 & above Lorazepam (Lorazepam 1 Mg Tab) 1 mg PO UD PRN; Protocol PRN Reason: EtOH Withdrawal AWSS Score 6,7 Stop: 08/29/23 16:14 Last Admin: 08/01/23 02:21 Dose: 1 mg Metoprolol Succinate (Metoprolol Succ 50mg Ext Rel Tab) 50 mg PO QAM [facility] Stop: 08/31/23 08:59 Last Admin: 08/01/23 09:09 Dose: 50 mg Nitroglycerin (Nitroglycerin Sl 0.4 Mg/Tab Tab) 0.4 mg SL Q5M PRN PRN Reason: Chest Pain Stop: 08/29/23 01:40 Olanzapine (Olanzapine 5 Mg Tablet) 5 mg PO HS BALDOMERO Stop: 08/30/23 20:59 Last Admin: 07/31/23 20:41 Dose: 5 mg Olanzapine (Olanzapine 5 Mg Tablet) 5 mg PO TID PRN PRN Reason: insomnia/agitation Stop: 08/30/23 18:21 Last Admin: 08/01/23 02:13 Dose: 5 mg Potassium Chloride (Potassium Chloride 10 Meq Tabcr) 10 meq PO BID BALDOMERO Stop: 08/31/23 20:59 Thiamine HCl (Thiamine Hcl 100 Mg Tab) 100 mg PO QAM [facility] Stop: 08/29/23 16:14 Last Admin: 08/01/23 09:10 Dose: 100 mg
[2023-08-01] MEDS: lisinopril 40 MG TAB PO SCH (20:00)
[2023-08-01] MEDS: POTASSIUM CHLORIDE 10 MEQ TABCR PO SCH (20:01)
[2023-08-01] MEDS: busPIRone 5 MG TAB PO PRN (20:42)
[2023-08-01] MEDS: OLANZapine 5 MG TABLET PO SCH (20:42)
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
[2023-08-02] MEDS: KETOROLAC TROMETHAMINE 15 MG/ML VIAL IV PRN ×3 (04:08→17:59)
[2023-08-02 07:39] LABS: Basophils # (auto) 0.05 K/uL (0.00-0.20); Basophils % (auto) 1.1 %; Eosinophils # (auto) 0.21 K/uL (0.00-0.50); Eosinophils % (auto) 4.4 %; Hematocrit (blood only) 34.5 % (37.0-47.0); Hemoglobin 11.5 g/dl (12.0-16.0); Immature Granulocytes # (auto) 0.01 K/uL (0.01-0.20); Immature Granulocytes % (auto) 0.2 %; Lymphocytes # (auto) 2.01 K/uL (1.20-3.40); Lymphocytes % (auto) 42.5 %; Mean Corpuscular Hemoglobin 29.9 pg (25.0-34.0); Mean Corpuscular Hgb Conc 33.3 g/dL (32.0-36.0); Mean Corpuscular Volume 89.6 fL (80.0-100.0); Mean Platelet Volume 9.4 fL (9.4-12.4); Monocytes # (auto) 0.41 K/uL (0.11-0.59); Monocytes % (auto) 8.7 %; Neutrophils # (auto) 2.04 K/uL (1.40-6.50); Neutrophils % (auto) 43.1 %; Platelet Count 273 K/uL (130-400); RDW Standard Deviation 65.4 fL (36.4-46.3); Red Blood Count 3.85 M/uL (4.20-5.40); White Blood Count 4.73 K/ul (4.8-10.8)
[2023-08-02] MEDS: LORazepam 1 MG TAB PO PRN ×4 (08:16→21:36)
[2023-08-02] MEDS: FOLIC ACID 1 MG TAB PO SCH (08:18)
[2023-08-02] MEDS: POTASSIUM CHLORIDE 10 MEQ TABCR PO SCH (08:18)
[2023-08-02] MEDS: GABAPENTIN 600 MG TAB PO SCH ×3 (08:18→20:04)
[2023-08-02] MEDS: THIAMINE HCL 100 MG TAB PO SCH (08:19)
[2023-08-02] MEDS: CEFDINIR 300 MG CAP PO SCH ×2 (08:19→20:02)
[2023-08-02 08:54] LABS: Alanine Aminotransferase 25 U/L (7-52); Albumin Globulin Ratio 1.3 (0.9-2); Albumin Level 3.3 gm/dl (3.4-5.0); Alkaline Phosphatase 83 U/L (34-104); Anion Gap 5 (3-11); Aspartate Aminotransferase 51 U/L (13-39); Bilirubin,Total 1.3 mg/dl (0.2-1.0); Blood Urea Nitrogen < 2 mg/dl (6-23); Calcium 8.8 mg/dl (8.6-10.3); Carbon Dioxide 25 mmol/L (21-32); Chloride 110 mmol/L (98-107); Creatinine Clr Calc Pharmacy 165.3 ml/min; Est GFR (African American) 149.9 ml/min; Est GFR (Non-African American) 129.3 ml/min; Globulin 2.5 gm/dl (2.5-4.0); Glucose 100 mg/dl (70-99(Fasting)); Magnesium 1.5 mg/dl (1.7-2.4); Phosphorus 3.9 mg/dl (2.5-4.9); Potassium 3.4 mmol/L (3.5-5.1); Sodium 140 mmol/L (136-145); Total Protein 5.8 gm/dl (6.0-8.3)
[2023-08-02] MEDS ORDERED: cloNIDine HCL 0.1 MG TAB PO SCH ×2 (09:00→21:00)
[2023-08-02] MEDS: busPIRone 5 MG TAB PO PRN ×2 (09:39→20:04)
[2023-08-02 10:01] LABS: Marijuana Quant, GCMS Urine 600 ng/mL (<5)
[2023-08-02] MEDS ORDERED: hydrALAZINE HCL 20 MG/ML VIAL IV ONE (12:02)
[2023-08-02] MEDS: CYCLOBENZAPRINE HCL 10 MG TAB PO PRN ×2 (12:46→17:58)
--- NOTE | 2023-08-02 13:42 | Communication Note ---
Date of Service: August 02, 2023 Psych liason was able to set up Neelam with a new female outpatient psychiatric provider, per her preference, at [place] on 09/01/2023 at 10am. She reported sleeping well last night with the olanzapine 15mg HS po and can continue this until she meets with her new outpatient psychiatric provider to re-assess ongoing use versus alternative medication options. Would not recommend use of benzodiazepines or Ambien after discharge given history of alcohol use disorder and recent episode of confusion/psychosis. There remain no acute safety concerns so from psychiatric standpoint she is stable for discharge once medically stable.
--- NOTE | 2023-08-02 15:15 | Hospitalist Progress Note ---
Date of Service August 02, 2023 Assessment & Plan (1) Acute psychosis: Plan: 28-year-old female with past med significant for intermittent palpitation, celiac disease, chronic left hip pain, major depression, mixed anxiety disorder, history of alcohol abuse, PTSD admitted for mental health evaluation but with persistent tachycardia and BP elevation. Acute psychosis Visual and auditory hallucinations Drug overdose Concern for overdose with home Ambien and Seroquel ER discussed case with poison control- recommended bicarb if QRS is greater than 120 and IV magnesium if QTc greater than 500, IV Ativan as needed for agitation Psychiatry consulted- appreciate recs - pt can't leave AMA. -concern for etoh and other drug abuse given persistent tachycardia and elevated BP -on thiamine, folic acid, gabapentin, ativan -zyprexa 5mg qhs -AWSS protocol One-on-one has been discontinued on 08/01 Pt requested signed doctor's note for plane ticket refund Tachycardia Resistant hypertension Persistent, possibly in withdrawal from exogenous source Questionable component of pain Given Hydralazine on 08/02- 5mg in AM and 10mg later during the day BP improved Continue home metoprolol 50mg qam and lisinopril 40mg qpm currently Pain control (see below) Holding PO Clonidine previously ordered Continue to monitor UTI UA suggestive of infection Urine cx growing pansensitive E coli Transitioned from IV Rocephin (2 days) to PO cefdinir, treat for 10 days total Chronic Pain Possible Avascular necrosis of bilateral femoral heads Pt with chronic pain, states exacerbated by recent traumatic fall Pain in neck, lower back going down legs and hips Orthopedics consulted re hips- no procedure at this time, treat psychiatric issues first, follow up as outpt (if surgery needed, may need tertiary center) XR cervical and lumbar spine ordered to be done AM 08/01 Pt receiving multiple doses of benzos, needs cautious concurrent use of narcotics (however pt with repeated requests) -one dose of oxycodone 5mg ordered on 07/31 -gabapentin dose increased from 300mg TID to 600mg TID -Toradol dose increased from 15mg q6h to 30mg q6h prn -prn PO advil and tylenol 1000mg q8h also ordered -Flexeril 10mg TID prn ordered -consider addition of med SNRI duloxetine/cymbalta for additional pain control with psych's approval (given prior use of SSRI Effexor in the past) if pain control still not achieved -consider pain management consult -PT order placed for lower back pain- appreciate recs Transaminitis Elevated LFTs Liver enzymes elevated but downtrending Tylenol level unremarkable CT abdomen pelvis showed hepatic steatosis, normal liver morphology Liver ultrasound showed hepatic steatosis GI consulted - noted "Her LFT's are elevated in the pattern seen with alcoholic liver disease. She knows she has this and this elevation is chronic. She has stopped drinking or is drinking in limited manner with glass of wine at dinner a couple of times per week. It is possible she also has Gilbert's on top of the alcoholic liver disease. It can takes months for elevated liver enzymes to resolve with history of alcohol related liver disease. This should not preclude her from being admitted to psychiatry floor for evaluation and treatment. The only thing that needs to be done is to follow LFT's periodically and for her to stay off alcohol." Continue to monitor levels Labs have downtrended UTI UA suggestive of infection, urine cx growing pansensitive E coli Transitioned from Rocephin (2 days) to PO cefdinir, treat for 10 days total Possible Median arcuate ligament syndrome noted on ct scan Consulted gen surgery - no procedure needed at this time, no abd. pain - surgery signed off Diet: Gluten free, safe tray DVT prophylaxis: SCDs, ambulation as tolerated CODE STATUS: Full code Disposition: currently awaiting medical stability for psych placement Admission and Anticipated Discharge Date Admission Date: July 29, 2023 Subjective Pt seen in the AM. States that she was feeling better but pain was still grater than anxiety. Has been discharged by the psych service. Review of Systems Review of Systems: All systems reviewed & are unremarkable except as noted in Subjective Physical Exam Physical Exam: General: Alert, oriented. No acute distress Skin: No noted rashes or bruises Psych: Appropriate mood and affect Neuro: No gross deficits HEENT: NC/AT, PERRLA, EOMI, oropharynx moist. Chest: Nontender to palpation. CV: tachycardic, No murmurs appreciated Resp: Breath sounds clear bilaterally, no increased effort of breathing. No crackles/rhonchi/rales. Abdomen: Soft, nontender, nondistended. Extremities: No edema in lower extremities bilaterally. Results & Data Results & Data Vital Signs (Past 12 Hours) Vital Signs Temp Pulse Pulse Resp BP Pulse Ox O2 Del Method 08/02/23 14:54 174/111 H 08/02/23 12:53 62 08/02/23 11:51 36.9 C 70 18 192/116 H 98 Room Air 08/02/23 07:25 36.8 C 71 17 151/113 H 99 Room Air
[2023-08-02] MEDS ORDERED: hydrALAZINE HCL 20 MG/ML VIAL IV STA (17:18)
[2023-08-02] MEDS: OLANZapine 5 MG TABLET PO SCH (20:03)
[2023-08-02] MEDS: lisinopril 40 MG TAB PO SCH (20:05)
[2023-08-02] MEDS: MAGNESIUM CHLORIDE W/CALCIUM 64MG DELAYED REL TAB PO SCH (21:18)
[2023-08-02] MEDS: POTASSIUM CHLORIDE CRTAB 20 MEQ TABCR PO SCH (21:19)
[2023-08-02] MEDS ORDERED: HYDROmorphone INJ 0.5 MG/0.5 ML SYR IV STA (22:38)
[2023-08-03] MEDS: KETOROLAC TROMETHAMINE 15 MG/ML VIAL IV PRN (05:18)
[2023-08-03] MEDS: CYCLOBENZAPRINE HCL 10 MG TAB PO PRN (05:19)
[2023-08-03] MEDS: LORazepam 1 MG TAB PO PRN (06:03)
--- NOTE | 2023-08-03 07:43 | Electrocardiogram Report ---
Test Reason : Blood Pressure : / mmHG Vent. Rate : 129 BPM Atrial Rate : 129 BPM P-R Int : 148 ms QRS Dur : 086 ms QT Int : 296 ms P-R-T Axes : 057 060 052 degrees QTc Int : 433 ms Sinus tachycardia Diffuse Nonspecific T wave abnormality Abnormal ECG When compared with ECG of 31-JUL-2023 06:08, Vent. rate has increased BY 53 BPM Limb lead placement error corrected Confirmed by Nathan Fraser ([id number]) on 08/03/2023 7:43:31 AM Referred By: REFERRED SELF Confirmed By:Nathan Fraser
[2023-08-03 07:45] LABS: Basophils # (auto) 0.03 K/uL (0.00-0.20); Basophils % (auto) 0.6 %; Eosinophils # (auto) 0.17 K/uL (0.00-0.50); Eosinophils % (auto) 3.3 %; Hematocrit (blood only) 32.8 % (37.0-47.0); Hemoglobin 11.4 g/dl (12.0-16.0); Immature Granulocytes # (auto) 0.01 K/uL (0.01-0.20); Immature Granulocytes % (auto) 0.2 %; Lymphocytes # (auto) 1.55 K/uL (1.20-3.40); Lymphocytes % (auto) 29.6 %; Mean Corpuscular Hemoglobin 30.3 pg (25.0-34.0); Mean Corpuscular Hgb Conc 34.8 g/dL (32.0-36.0); Mean Corpuscular Volume 87.2 fL (80.0-100.0); Mean Platelet Volume 9.5 fL (9.4-12.4); Monocytes # (auto) 0.49 K/uL (0.11-0.59); Monocytes % (auto) 9.4 %; Neutrophils # (auto) 2.98 K/uL (1.40-6.50); Neutrophils % (auto) 56.9 %; Platelet Count 259 K/uL (130-400); RDW Coefficient of Variation 20.1 % (11.5-14.5); RDW Standard Deviation 63.8 fL (36.4-46.3); Red Blood Count 3.76 M/uL (4.20-5.40); White Blood Count 5.23 K/ul (4.8-10.8)
--- NOTE | 2023-08-03 07:50 | Electrocardiogram Report ---
Test Reason : Blood Pressure : / mmHG Vent. Rate : 076 BPM Atrial Rate : 076 BPM P-R Int : 146 ms QRS Dur : 082 ms QT Int : 410 ms P-R-T Axes : 016 049 053 degrees QTc Int : 461 ms Normal sinus rhythm Minor ST elevation, most consistent with repolarization variant Normal ECG When compared with ECG of 02-AUG-2023 18:47, Vent. rate has decreased BY [address] elevation now present in multiple leads (seen on 2016 ECG also) Confirmed by Nathan Fraser ([id number]) on 08/03/2023 7:50:09 AM Referred By: REFERRED SELF Confirmed By:Nathan Fraser
[2023-08-03 08:02] LABS: Albumin Globulin Ratio 1.3 (0.9-2); Albumin Level 3.3 gm/dl (3.4-5.0); BUN Creatinine Ratio 3.6 (10-20); Bilirubin,Total 1.2 mg/dl (0.2-1.0); Calcium 8.9 mg/dl (8.6-10.3); Creatinine Clr Calc Pharmacy 154.1 ml/min; Est GFR (African American) 148.1 ml/min; Est GFR (Non-African American) 127.8 ml/min; Globulin 2.6 gm/dl (2.5-4.0); Magnesium 1.5 mg/dl (1.7-2.4); Phosphorus 4.9 mg/dl (2.5-4.9); Potassium 3.3 mmol/L (3.5-5.1); Total Protein 5.9 gm/dl (6.0-8.3)
[2023-08-03 08:05] LABS: Anisocytosis Present; Polychromasia 1+
[2023-08-03] MEDS: busPIRone 5 MG TAB PO PRN (09:38)
[2023-08-03] MEDS: CEFDINIR 300 MG CAP PO SCH (09:38)
[2023-08-03] MEDS: THIAMINE HCL 100 MG TAB PO SCH (09:39)
[2023-08-03] MEDS: FOLIC ACID 1 MG TAB PO SCH (09:39)
[2023-08-03] MEDS: MAGNESIUM CHLORIDE W/CALCIUM 64MG DELAYED REL TAB PO SCH (09:39)
--- NOTE | 2023-08-03 09:52 | Cardiology Consultation ---
Date of Consultation August 03, 2023 Assessment & Plan (1) Psychosis: (2) Hypertensive urgency: (3) Uncontrolled hypertension: (4) Sinus tachycardia: (5) Hypokalemia: Supervising Physician Co-Signing Physician Notes Attending Staff: Pt seen and evaluated with AP Staff Concur with observations and plan 28 yo woman presenting for mental health evaluation Cardiology Consult: Resistant Hypertension * 07/29/23 - presented with hallucinations + psychosis - potential drug overdose * No previous cardiac hx * + palpitations - had been placed on Metoprolol * On presentation 168/108 * Rx with Lisinopril 40 mg po x 1 + Toprol XL 50 mg po per day + Clonidine * ECHOcardiogram: LVEF 55-60%; RV - normal size and function, MR-MILD, TR- TRACE. No Pericardial Effusion. Normal Aortic Root Current medical regimen reviewed * Over the last 24 hrs, patient appears to have a down-trending SBP * Continue Lisinopril 40 mg po per day * Consider Adding Aldactone 25 mg po per day * Continue Toprol XL 50 mg po per day * If depression is part of mental health challenges, consider Ca++ Channel blockers instead of beta blockers - Procardia XL 30 mg po per day * Clonidine may be used but is not generally first-line therapy for HTN. If being used for alternate reasons, may continue. * K+ repletion -- K+ goal 4.5-5 * Mag goal >2 * TSH - 0.785 * Creat - 0.56 * UA - negative for protein, negative for blood * Not on OCP - ask if patient has implanon * Check Renal Artery Vascular US * CT of Abdomen - no PKD * Check Renin/Isrrael ratio * Tox Screen - Cannibus+ * No Major ETOH * Adrenal check (mineralocorticoids as well as catecholamines) * Sleep study as an outpt * No mention of coarctation on ECHO Leroy Lou History of Present Illness Reason for Consultation: Resistant hypertension Requesting Physician: Sixto Attending Physician: Sixto History of Present Illness Admitted to 07/29/2023 with acute psychosis, visual and auditory hallucinations, drug overdose, chronic pain. BP 168/108 on presentation, as high as 192/116 on 08/02/2023 at 11:51. Lisinopril 40 mg/day and Metoprolol Succinate 50 mg/day started on 08/01/2023. Clonidine prescribed on 08/02/2023 IV Hydralazine administered on 08/02 Hypokalemia noted throughout hospitalization. Past Medical and Surgical History: Palpitations Celiac disease Chronic left hip pain Major depression Mixed anxiety disorder History of alcohol abuse PTSD Dental procedure. Social History. Nonsmoker. Occasional alcohol and marijuana Allergies Allergy/AdvReac Type Severity Reaction Status Date / Time gluten Allergy Intermediate CELIAC Unverified 04/22/16 22:29 DISEASE Home Medications Medication Instructions Recorded Confirmed Type metoprolol tartrate 50 mg tablet 50 mg PO QAM 07/29/23 07/29/23 History ondansetron 4 mg disintegrating 4 mg PO DIRECTED PRN Nausea And 07/29/23 07/29/23 History tablet Vomiting Patient History Medical History (Updated 08/03/23 @ 11:07 by Mikaela Woods MD) Alcohol use disorder Social History Smoking Status: Never smoker Hx Alcohol Use: Yes Alcohol type: other Hx Substance Use: Yes (pt denied, + marijuana) Last Used Substance: Unknown Last Used Substance Other:: pt denying any illicit drugs Communication Ability: Effective Beliefs That Will Affect Care: None Current Living Situation: Alone Feels Safe at Home: Yes and No Is there a partner from a previous relationship who is making you feel unsafe now?: No Any Concerns about Your Family Situation: Yes (not talking to mother/father) Would You Like to Speak to Someone About Your Situation: Yes (psych consult placed) Safety Concerns: Afraid for Self Gender Identity: Female Assistive Devices: None Review of Systems Review of Systems: Complete Review of Systems is as stated above, negative, or noncontributory. Physical Exam Physical Exam: Thin woman No elevation in JVO S1S2 CTA B No C/C/E Warm and well perfused. Results & Data Vital Signs (Past 12 Hours) Vital Signs Temp Pulse Pulse Resp BP Pulse Ox O2 Del Method 08/03/23 07:45 36.6 C 100 H 18 146/101 H 93 Room Air 08/03/23 07:16 116 H 08/03/23 05:28 155/118 H 08/02/23 23:31 105 H 08/02/23 22:44 37.1 C 98 H 18 137/86 97 Room Air Laboratory Results Cardiac Enzymes 08/03/23 Range/Units 07:29 AST 42 H (13-39) U/L CBC 08/03/23 Range/Units 07:29 WBC 5.23 (4.8-10.8) K/ul RBC 3.76 L (4.20-5.40) M/uL Hgb 11.4 L (12.0-16.0) g/dl Hct 32.8 L (37.0-47.0) % Plt Count 259 (130-400) K/uL Neut # (Auto) 2.98 (1.40-6.50) K/uL Lymph # (Auto) 1.55 (1.20-3.40) K/uL [place] # (Auto) 0.49 (0.11-0.59) K/uL Eos # (Auto) 0.17 (0.00-0.50) K/uL Baso # (Auto) 0.03 (0.00-0.20) K/uL Comprehensive Metabolic Panel 08/03/23 Range/Units 07:29 Sodium 142 (136-145) mmol/L Potassium 3.3 L (3.5-5.1) mmol/L Chloride 110 H (98-107) mmol/L Carbon Dioxide 26 (21-32) mmol/L BUN 2 L (6-23) mg/dl Creatinine 0.56 L (0.6-1.2) mg/dl Glucose 81 (70-99(Fasting)) mg/dl Calcium 8.9 (8.6-10.3) mg/dl AST 42 H (13-39) U/L ALT 23 (7-52) U/L Alkaline Phosphatase 77 (34-104) U/L Total Protein 5.9 L (6.0-8.3) gm/dl Albumin 3.3 L (3.4-5.0) gm/dl Intake and Output 08/02/23 08/03/23 08/03/23 22:59 06:59 14:59 Intake Total 1599 Balance 1599 Intake: Oral 1599 Other: Weight 64.7 kg Weight Measurement Method Standing Scale Diagnostic Findings Admission EKG: NSR at 85 bpm with sinus arrhythmia, early repolarization, QTc 454 ms. EKG on 08/02/2023: Sinus tachycardia at 129 bpm with diffuse nonspecific T wave abnormality, QTc 433 ms. 08/02/2023 TTE: Normal size LV, EF 55-60%. Normal RV function. Mild mitral regurgitation. Trace tricuspid regurgitation. Telemetry: Sinus/sinus tachycardia, heart rates ranging from 60 bpm to 130 bpm. Medications Administered Current Inpatient Medications Acetaminophen (Acetaminophen 500 Mg Tab) 1,000 mg PO Q8H PRN PRN Reason: Pain or Fever Stop: 08/30/23 15:03 Buspirone HCl (Buspirone 5 Mg Tab) 10 mg PO TID PRN PRN Reason: Anxiety Stop: 08/31/23 18:57 Last Admin: 08/03/23 09:38 Dose: 10 mg Cefdinir (Cefdinir 300 Mg Cap) 300 mg PO BID [facility]; Protocol Stop: 08/11/23 08:59 Last Admin: 08/03/23 09:38 Dose: 300 mg Clonidine HCl (Clonidine Hcl 0.1 Mg Tab) 0.1 mg PO BID [facility] Stop: 09/01/23 20:59 Last Admin: 08/03/23 09:37 Dose: 0.1 mg Cyclobenzaprine HCl (Cyclobenzaprine Hcl 10 Mg Tab) 10 mg PO TID PRN PRN Reason: Muscle Spasm Stop: 08/30/23 15:05 Last Admin: 08/03/23 05:19 Dose: 10 mg Folic Acid (Folic Acid 1 Mg Tab) 1 mg PO QAM [facility] Stop: 08/29/23 16:14 Last Admin: 08/03/23 09:39 Dose: 1 mg Gabapentin (Gabapentin 600 Mg Tab) 600 mg PO TID [facility] Stop: 08/31/23 08:59 Last Admin: 08/03/23 11:47 Dose: 600 mg Lorazepam 0.5 mg/ Syringe 0.5 mls @ 2 mls/min IV Q4H PRN PRN Reason: Anxiety/Agitation Stop: 08/29/23 01:40 Last Admin: 08/01/23 18:04 Dose: 2 mls/min Ibuprofen (Ibuprofen 200 Mg Tab) 200 mg PO Q6H PRN PRN Reason: pain Stop: 08/29/23 12:24 Ketorolac Tromethamine (Ketorolac Tromethamine 15 Mg/Ml Vial) 30 mg IV Q6H PRN PRN Reason: Pain Stop: 08/04/23 18:29 Last Admin: 08/03/23 05:18 Dose: 30 mg Lisinopril (Lisinopril 40 Mg Tab) 40 mg PO QPM [facility] Stop: 08/31/23 20:59 Last Admin: 08/02/23 20:05 Dose: 40 mg Lorazepam (Lorazepam 1 Mg Tab) 2 mg PO UD PRN; Protocol PRN Reason: EtOH Withdrawal AWSS Score 8,9 Stop: 08/29/23 16:14 Last Admin: 08/03/23 06:03 Dose: 2 mg Lorazepam (Lorazepam 1 Mg Tab) 3 mg PO ONCE PRN; Protocol PRN Reason: EtOH Withdrawal AWSS Score 10 & above Lorazepam (Lorazepam 1 Mg Tab) 1 mg PO UD PRN; Protocol PRN Reason: EtOH Withdrawal AWSS Score 6,7 Stop: 08/29/23 16:14 Last Admin: 08/02/23 18:09 Dose: 1 mg Magnesium Chloride (Magnesium Chloride W/Calcium 64mg Delayed Rel Tab) 64 mg PO BID [facility] Stop: 09/01/23 20:59 Last Admin: 08/03/23 09:39 Dose: 64 mg Metoprolol Succinate (Metoprolol Succ 50mg Ext Rel Tab) 50 mg PO QAM [facility] Stop: 08/31/23 08:59 Last Admin: 08/03/23 10:10 Dose: 50 mg Nitroglycerin (Nitroglycerin Sl 0.4 Mg/Tab Tab) 0.4 mg SL Q5M PRN PRN Reason: Chest Pain Stop: 08/29/23 01:40 Olanzapine (Olanzapine 5 Mg Tablet) 15 mg PO HS [facility] Stop: 08/31/23 20:59 Last Admin: 08/02/23 20:03 Dose: 15 mg Olanzapine (Olanzapine 5 Mg Tablet) 5 mg PO DAILY PRN PRN Reason: insomnia/agitation Stop: 08/30/23 18:24 Last Admin: 08/02/23 20:05 Dose: 5 mg Potassium Chloride (Potassium Chloride Crtab 20 Meq Tabcr) 20 meq PO BID [facility] Stop: 09/01/23 20:59 Last Admin: 08/03/23 10:09 Dose: 20 meq Thiamine HCl (Thiamine Hcl 100 Mg Tab) 100 mg PO QAM [facility] Stop: 08/29/23 16:14 Last Admin: 08/03/23 09:39 Dose: 100 mg (1) Psychosis Psychosis type: unspecified psychosis type Qualified Code(s): F29 - Unspecified psychosis not due to a substance or known physiological condition
[2023-08-03] MEDS: POTASSIUM CHLORIDE CRTAB 20 MEQ TABCR PO SCH (10:09)
[2023-08-03] MEDS: METOPROLOL SUCC 50MG EXT REL TAB PO SCH (10:10)
--- NOTE | 2023-08-03 10:43 | Psychiatric Progress Note ---
Date of Service August 03, 2023 Impression / Recommendations Impression Diagnostically unclear-consistent with unspecified psychosis-most likely due to substance use withdrawal vs SNRI-induced hypomania/gary vs effects of overuse of Ambien. The description of erratic behavior, decreased need for sleep, delusions and interactions with police and family following SNRI initiation suggest possible episode of acute gary though today she presents without prominent delusions/flight of ideas/hyperactivity nor classic speech changes. Acute exacerbation of PTSD possible as is concern for possible substance withdrawal presentation from alcohol. Given no recent benzo scripts per PDMP and lack of significant sedation from IV ativan prn raises concern for tolerance from alcohol use though she adamantly denies any recent use. Certainly also possible that some of her symptoms of psychosis and agitation were set off from overuse of Ambien which can certainly alter memory, cause hallucinations and lead to bizarre behaviors. 08/03/2023: She continued to show improved sleep with olanzapine and without any symptoms of gary nor psychosis, consistent denial of SI and HI but with ongoing reports of anxiety, PTSD and ADHD symptoms. Given recent concern for SNRI- induced episode of hypomania/gary she is not an appropriate candidate for an SSRI or SNRI trial at this time and is tolerated the start of olanzapine for mood stabilization and off-label benefits for anxiety and sleep. She remains very medication seeking regarding controlled substances, to the point of making statements she may not be safe to leave when the hospitalist discussed on discharge planning that she would not have an outpatient benzodiazepine script. These behaviors, in addition to concerns for alcohol withdrawal during this admission, remain concerning for likely substance use and possibility this may have a played a role in her decompensation prior to admission. Encouragingly she remains motivated to engage with dual diagnosis outpatient therapy at [facility] and if she can demonstrate mood stability may be a candidate for ADHD treatment in the future when seen for her outpatient psychiatric assessment next month. She is not interested nor does she feel she needs substance use treatment at this time. In speaking with her she adamantly denies any SI, is future-oriented and she is not interested in voluntary inpatient psychiatric treatment, declines this when offered again today, noting that her focus is to "get back on Adderall" and feels that is what she needs and she prefers to return home and see her cat. She does not meet 302 involuntary psychiatric criteria. Acute risk is low given denial of SI, denial of major depressive symptoms, lack of access to lethal means, plan to avoid substance use, improvement in sleep, future-oriented, focused on meeting needs and improvement in psychosis. Chronic risk is moderate given some non-modifiable risk factors including psychiatric co-morbid diagnoses, periods of impulsivity, limited social support, significant history of trauma, history of substance use, emotional reactivity but also with no prior suicide attempts, no prior psychiatric hospitalizations, and with protective factors including sense of responsibility to family and social supports, outpatient care in place, positive problem solving. Counseled on ways to reduce acute and chronic risk including engaging with outpatient providers, using crisis resources if needed, utilizing supports, taking medication, and using coping skills. I recommend she be discharged with a prescription for olanzapine 15mg HS po, Vistaril 25mg BID po prn for anxiety/panic attacks and option for gabapentin 300mg - 600mg TID po prn off-label for anxiety/alcohol use disorder (and potential as needed for pain if deemed appropriate by hospitalist provider), reviewed risks of potential fatal respiratory if gabapentin is combined with alcohol which she is aware of. Overall, I spent a total of 50 minutes with this case including review of chart records, review of labwork, direct evaluation of the patient at bedside, counseling the patient, discussion of the patient with the Nurse and with the hospitalist provider, discussion with the psychiatric liason during clinical rounds, risk assessment and documentation in the electronic health record. (1) Post traumatic stress disorder (PTSD): (2) Insomnia: (3) Anxiety: Plan -She is deemed psychiatrically stable for discharge, doesn't meet 302 criteria and she declines offers for voluntary inpatient psychiatric treatment -Continue olanzapine 15mg HS po -Option to provide Vistaril 25mg BID po prn for anxiety/panic attacks on discharge and option to provide gabapentin 300mg TID-600mg TID prn po off-label for panic attacks/anxiety/hx alcohol use disorder based on hospitalist di scretion (and if deemed to provide additional benefit for pain) -She has outpatient psychiatry follow-up next month and remains engaged with outpatient dual diagnosis therapy -She is aware of local crisis resources, agrees to return to ED if she develops SI, feels unable to remain safe at home or if symptoms worsen/do not improve over time Protective Factors Assessment Employed: Yes Interval History Identifying Information 28 yo woman with history of PTSD, ADHD, anxiety, depression, alcohol use admitted medically after erratic behavior and concern she unintentionally took excessive amounts of Ambien and Seroquel. Psychiatry consulted for recommendations. Chief Complaint "I want to go home, I want to see my cat". Review of Systems Notes reports sleeping throughout most of the night Subjective Subjective Patient was seen & assessed and interval progress reviewed. Psychiatry re- consulted after patient made statements of not feeling ready or safe to leave the hospital when hospitalist provider discussed plan for discharge without script for outpatient benzodiazepines. Met with Neelam at bedside, she adamantly denies SI and reports that she feels safe and desires returning home. She is tearful at times discussing her concern that she will remain very anxious at home without "Adderall" or benzodiazepines. Discussed why this medications are considered contraindicated at this time. She wonders about alternative anxiety medications and we reviewed Vistaril which she has taken and tolerated well before though she did not find this as effective as benzodiazepines which we discussed is quite typical but that Vistaril is a safer and more appropriate longer term option for anxiety/panic attacks. She continues to tolerate the olanzapine well and is sleeping better though feels she may sleep better at home without the overnight interruptions for vital sign checks etc. She knows about her outpatient psych appointment next month and feels comfortable returning to the hospital if things do not go well at home or she feels unable to avoid feeling "sense of doom" at home. Reviewed option for inpatient psychiatric treatment and option to start bed search to further work on anxiety/PTSD symptoms in the inpatient setting which she declines, stating "I'd rather go home and see how I do, I'll come back if I need to". She also reports ongoing pain and wonders about option for gabapentin at discharge, stated I would discuss this with the hospitalist. She also feels glad to have her [facility] therapist. Physical Exam Psychiatric Orientation: alert, oriented x 3 and cooperative Apperance: appropriately dressed Eye Contact: good eye contact Motor Behavior: no abnormal motor movements Speech: normal rate/rhythm/volume of speech Affect: + anxious affect and + tearful affect (when discussing how helpful Adderall was in the past) Mood: + anxious mood Thought Process: linear/logical thought process and + perseveration (about Adderall) Thought Content: reality based without delusions Suicidal Thoughts: denies suicidal thoughts Homicidal Thoughts: denies homicidal thoughts Hallucinations: no auditory hallucinations and no visual hallucinations Cognition: recent memory grossly intact, remote memory grossly intact, attention grossly intact and language grossly intact Insight: + limited insight Judgment: + limited judgement Vital Signs (Past 24 Hours) Last Vital Signs Temp 36.6 C 08/03/23 07:45 Pulse 100 H 08/03/23 07:45 Resp 18 08/03/23 07:45 BP 146/101 H 08/03/23 07:45 Pulse Ox 93 08/03/23 07:45 O2 Del Method Room Air 08/03/23 07:45 Results & Data ([facility]) Laboratory Results Laboratory Results - last 24 hr 08/02/23 08/03/23 10:13 07:29 WBC 5.23 RBC 3.76 L Hgb 11.4 L Hct 32.8 L MCV 87.2 MCH 30.3 MCHC 34.8 RDW Std Deviation 63.8 H RDW Coeff of Ken 20.1 H Plt Count 259 MPV 9.5 Immature Gran % (Auto) 0.2 Neut % (Auto) 56.9 Lymph % (Auto) 29.6 [place] % (Auto) 9.4 Eos % (Auto) 3.3 Baso % (Auto) 0.6 Neut # (Auto) 2.98 Lymph # (Auto) 1.55 [place] # (Auto) 0.49 Eos # (Auto) 0.17 Baso # (Auto) 0.03 Immature Gran # (Auto) 0.01 Polychromasia 1+ Anisocytosis Present Sodium 142 Potassium 3.3 L Chloride 110 H Carbon Dioxide 26 Anion Gap 6 BUN 2 L Creatinine 0.56 L Est Cr Clr Drug Dosing 154.1 Est GFR ( Amer) 148.1 Est GFR (Non-Af Amer) 127.8 BUN/Creatinine Ratio 3.6 L Glucose 81 Calcium 8.9 Ionized Calcium 1.20 Phosphorus 4.9 D Magnesium 1.5 L Total Bilirubin 1.2 H AST 42 H ALT 23 Alkaline Phosphatase 77 Total Protein 5.9 L Albumin 3.3 L Globulin 2.6 Albumin/Globulin Ratio 1.3 SARS-CoV-2 (PCR) NEGATIVE SARS-CoV-2 RNA ([facility]) Cancelled Current Inpatient Medications Current Inpatient Medications: Current Inpatient Medications Acetaminophen (Acetaminophen 500 Mg Tab) 1,000 mg PO Q8H PRN PRN Reason: Pain or Fever Stop: 12/13/23 15:03 Buspirone HCl (Buspirone 5 Mg Tab) 10 mg PO TID PRN PRN Reason: Anxiety Stop: 08/31/23 18:57 Last Admin: 08/03/23 09:38 Dose: 10 mg Cefdinir (Cefdinir 300 Mg Cap) 300 mg PO BID [facility]; Protocol Stop: 08/11/23 08:59 Last Admin: 08/03/23 09:38 Dose: 300 mg Clonidine HCl (Clonidine Hcl 0.1 Mg Tab) 0.1 mg PO BID [facility] Stop: 09/01/23 20:59 Last Admin: 08/03/23 09:37 Dose: 0.1 mg Cyclobenzaprine HCl (Cyclobenzaprine Hcl 10 Mg Tab) 10 mg PO TID PRN PRN Reason: Muscle Spasm Stop: 08/30/23 15:05 Last Admin: 08/03/23 05:19 Dose: 10 mg Folic Acid (Folic Acid 1 Mg Tab) 1 mg PO QAM [facility] Stop: 08/29/23 16:14 Last Admin: 08/03/23 09:39 Dose: 1 mg Gabapentin (Gabapentin 600 Mg Tab) 600 mg PO TID [facility] Stop: 08/31/23 08:59 Last Admin: 08/02/23 20:04 Dose: 600 mg Lorazepam 0.5 mg/ Syringe 0.5 mls @ 2 mls/min IV Q4H PRN PRN Reason: Anxiety/Agitation Stop: 08/29/23 01:40 Last Admin: 08/01/23 18:04 Dose: 2 mls/min Ibuprofen (Ibuprofen 200 Mg Tab) 200 mg PO Q6H PRN PRN Reason: pain Stop: 08/29/23 12:24 Ketorolac Tromethamine (Ketorolac Tromethamine 15 Mg/Ml Vial) 30 mg IV Q6H PRN PRN Reason: Pain Stop: 08/04/23 18:29 Last Admin: 08/03/23 05:18 Dose: 30 mg Lisinopril (Lisinopril 40 Mg Tab) 40 mg PO QPM [facility] Stop: 08/31/23 20:59 Last Admin: 08/02/23 20:05 Dose: 40 mg Lorazepam (Lorazepam 1 Mg Tab) 2 mg PO UD PRN; Protocol PRN Reason: EtOH Withdrawal AWSS Score 8,9 Stop: 08/29/23 16:14 Last Admin: 08/03/23 06:03 Dose: 2 mg Lorazepam (Lorazepam 1 Mg Tab) 3 mg PO ONCE PRN; Protocol PRN Reason: EtOH Withdrawal AWSS Score 10 & above Lorazepam (Lorazepam 1 Mg Tab) 1 mg PO UD PRN; Protocol PRN Reason: EtOH Withdrawal AWSS Score 6,7 Stop: 08/29/23 16:14 Last Admin: 08/02/23 18:09 Dose: 1 mg Magnesium Chloride (Magnesium Chloride W/Calcium 64mg Delayed Rel Tab) 64 mg PO BID [facility] Stop: 09/01/23 20:59 Last Admin: 08/03/23 09:39 Dose: 64 mg Metoprolol Succinate (Metoprolol Succ 50mg Ext Rel Tab) 50 mg PO QAM [facility] Stop: 08/31/23 08:59 Last Admin: 08/03/23 10:10 Dose: 50 mg Nitroglycerin (Nitroglycerin Sl 0.4 Mg/Tab Tab) 0.4 mg SL Q5M PRN PRN Reason: Chest Pain Stop: 08/29/23 01:40 Olanzapine (Olanzapine 5 Mg Tablet) 15 mg PO HS [facility] Stop: 08/31/23 20:59 Last Admin: 08/02/23 20:03 Dose: 15 mg Olanzapine (Olanzapine 5 Mg Tablet) 5 mg PO DAILY PRN PRN Reason: insomnia/agitation Stop: 08/30/23 18:24 Last Admin: 08/02/23 20:05 Dose: 5 mg Potassium Chloride (Potassium Chloride Crtab 20 Meq Tabcr) 20 meq PO BID [facility] Stop: 09/01/23 20:59 Last Admin: 08/03/23 10:09 Dose: 20 meq Thiamine HCl (Thiamine Hcl 100 Mg Tab) 100 mg PO QAM [facility] Stop: 08/29/23 16:14 Last Admin: 08/03/23 09:39 Dose: 100 mg
[2023-08-03] MEDS: GABAPENTIN 600 MG TAB PO SCH ×2 (11:47→15:13)
--- NOTE | 2023-08-03 14:19 | Discharge Summary ---
Discharge Summary Date of Service August 03, 2023 Notes For Next Care Provider Psychiatry discharge recommendations: -Concern for SNRI-induced episode of hypomania/gary and stated that she is not an appropriate candidate for an SSRI or SNRI at this time -Noted some concern for drug seeking behavior, and likely substance use and possibility this may have a played a role in her acute psychotic decompensation prior to admission. -Advised that they would not recommend use of benzodiazepines or Ambien after discharge given history of alcohol use disorder and recent episode of confusion/psychosis. -Advised to discharge with olanzapine 15mg qhs, Vistaril 25mg BID PRN for anxiety/panic attacks until she follows up with outpt psych provider. Pt was discharged with gabapentin 600mg TID for pain that pt received while inpatient with PCP follow up for continued monitoring and refills as needed. Advised to not use with alcohol. Cardiology consulted for resistant HTN, recommended the following for discharge: -continue metoprolol succinate 50mg and lisinopril 40mg daily -If mood concern for depression, consider Procardia XL 30mg instead of beta ozzy -Consider Aldactone 25mg -Consider outpt sleep study, renal artery vascular US, renin/aldosterone ratio, adrenal check (mineralocorticoids and catecholamines) Pt discharged with metoprolol succinate 50mg qAM and lisinopril 40mg qPM Close PCP follow up for continued BP monitoring and further medication management Medication Changes From Visit Olanzapine 15mg qhs Vistaril 25mg BID PRN Gabapentin 600mg TID Lisinopril 40mg qhs Metoprolol tartrate 50mg qAM switched to metoprolol succinate 50mg qAM Admission HPI Per Admitting Provider 28-year-old female with past med significant for intermittent palpitation, celiac disease, chronic left hip pain, major depression, mixed anxiety disorder, history of alcohol abuse, PTSD, was brought into the ER for mental health evaluation. As per ER patient had 4 interactions with police in last 14 hours. They have been called for home and to multiple businesses in the area with patient acting erratically. Patient reports she is having visual and auditory hallucinations. She is hearing her family talking about her. And also seeing things on the abrrett. She was recently started on Effexor . And she also on S eroquel. She states she did not sleep last few days and she took Ambien and also Seroquel. Looks like she ingested 11 tablets of 5 mg Ambien in the last 36 hours and also 15 tablets of Seroquel 25 mg the same timeframe to get hallucinations under control and also to help her get sleep. ER talk to poison control and was recommended bicarb if QRS on EKG greater than 120 and IV magnesium if QTc greater than 500. Also recommended Ativan as needed for agitations. Patient needs medically cleared for psychiatric facility because of her elevated bilirubin. In the ER she also found her tachycardia and elevated blood pressure. Patient currently complains of being anxious. Answers yes to most of the questions. States has headache, has blurred visions, has sore throat, has runny nose, has cough, has nausea, has chest pains, has shortness of breath, has abdominal pain, states has both diarrhea and constipation. Past medical history. As mentioned above Past surgical history dental procedure. Social history. No smoking. Alcohol occasional as per patient. Marijuana occasional as per patient Family history no family history on file Admission Exam Per Admitting Provider General- Not in distress. Head- atraumatic Eyes- EOMI, ENT- oropharynx clear Neck- supple, no JVD. Lungs- clear to auscultation , no wheezing or crackles. Heart- regular rhythm; no murmur, no gallop. Abdomen- normal bowel sounds, soft, nontender, no distension. Extremities- no pretibial edema, no erythema seen. Neuro- alert, oriented no facial palsy; no dysarthria; moves extremities. Principal Dx & Hospital Course #1 = Principal Diagnosis (1) Acute psychosis: 28-year-old female with past med significant for intermittent palpitation, celiac disease, chronic left hip pain, major depression, mixed anxiety disorder, history of alcohol abuse, PTSD admitted for mental health evaluation in the setting of a drug overdose but with persistent tachycardia and BP elevation. Acute psychosis Visual and auditory hallucinations Drug overdose Concern for overdose with home Ambien and Seroquel ER discussed case with poison control- recommended bicarb if QRS is greater than 120 and IV magnesium if QTc greater than 500, IV Ativan as needed for agitation Psychiatry consulted, hospital recommendations and course included the following: - initially pt could not leave AMA but denied SI and was later deemed stable for discharge home with outpatient psychiatric followup -concern for etoh and other drug abuse given persistent tachycardia and elevated BP -Tox screen positive for THC use -on thiamine, folic acid, gabapentin, ativan -zyprexa 5mg qhs initially, increased eventually to 15mg qhs -[facility] protocol Psychiatry discharge recommendations: -Concern for SNRI-induced episode of hypomania/gary and stated that she is not an appropriate candidate for an SSRI or SNRI at this time -Noted some concern for drug seeking behavior, and likely substance use and possibility this may have a played a role in her acute psychotic decompensation prior to admission. -Advised that they would not recommend use of benzodiazepines or Ambien after discharge given history of alcohol use disorder and recent episode of confusion/psychosis. -Advised to discharge with olanzapine 15mg qhs, Vistaril 25mg BID PRN for anxiety/panic attacks until she follows up with outpt psych provider. Pt was discharged with gabapentin 600mg TID for pain that pt received while inpatient with PCP follow up for continued monitoring and refills as needed. Advised to not use with alcohol. One-to-one sitter was discontinued on 08/01 Pt requested signed doctor's note for plane ticket refund. Tachycardia Resistant hypertension Persistent, possibly in withdrawal from exogenous source Questionable component of pain Given Hydralazine on 08/02- 5mg in AM and 10mg later during the day BP improved Cardiology consulted, recommended the following for discharge: -continue metoprolol succinate 50mg and lisinopril 40mg daily -If depression, consider Procardia XL 30mg instead of beta ozzy -Consider Aldactone 25mg -Consider outpt sleep study, renal artery vascular US, renin/aldosterone ratio, adrenal check (mineralocorticoids and catecholamines) Pt discharged with metoprolol succinate 50mg qAM and lisinopril 40mg qPM Close PCP follow up for continued BP monitoring and medication management Chronic Pain Possible Avascular necrosis of bilateral femoral heads Pt with chronic pain, states exacerbated by recent traumatic fall Pain in neck, lower back going down legs and hips XR cervical spine and lumbar spine with no acute changes Orthopedics consulted re hips- "no procedure at this time, treat psychiatric issues first, follow up as outpt (if surgery needed, may need tertiary center)" Pt receiving multiple doses of benzos, needed cautious concurrent use of narcotics (however pt with repeated requests) -one dose of oxycodone 5mg ordered on 07/31 -gabapentin dose increased from 300mg TID to 600mg TID, discharged with the same -Toradol dose increased from 15mg q6h to 30mg q6h prn -prn PO advil and tylenol 1000mg q8h also ordered- pt stated she was told not to take however her kidney function remained wnl in spite of toradol use. -Flexeril 10mg TID prn -consider pain management consult -PT/OT UTI UA suggestive of infection Urine cx growing pansensitive E coli Transitioned from IV Rocephin (2 days) to PO cefdinir, treat for 10 days total Discharged with 5 more days of cefdinir Transaminitis Elevated LFTs Liver enzymes elevated but downtrended, pattern suggestive of chronic alcohol use Tylenol level unremarkable CT abdomen pelvis showed hepatic steatosis, normal liver morphology Liver ultrasound showed hepatic steatosis GI consulted - noted "Her LFT's are elevated in the pattern seen with alcoholic liver disease. She knows she has this and this elevation is chronic. She has stopped drinking or is drinking in limited manner with glass of wine at dinner a couple of times per week. It is possible she also has Gilbert's on top of the alcoholic liver disease. It can takes months for elevated liver enzymes to resolve with history of alcohol related liver disease. This should not preclude her from being admitted to psychiatry floor for evaluation and treatment. The only thing that needs to be done is to follow LFT's periodically and for her to stay off alcohol." Continue to monitor levels after discharge, consider outpt GI followup Possible Median arcuate ligament syndrome noted on ct scan Consulted gen surgery - no procedure needed at this time, no abd. pain - surgery signed off PCP follow up (2) Psychosis: (3) Uncontrolled hypertension: (4) Hypertensive urgency: (5) Anxiety: (6) Insomnia: (7) Median arcuate ligament syndrome: (8) UTI (urinary tract infection): Discharge Exam General: Alert, oriented. No acute distress Skin: No noted rashes or bruises Psych: Appropriate mood and affect Neuro: No gross deficits HEENT: NC/AT Chest: Nontender to palpation. CV: tachycardic, No murmurs appreciated Resp: Breath sounds clear bilaterally, no increased effort of breathing. Abdomen: Soft, nontender, nondistended. Extremities: No edema in lower extremities bilaterally. Updated Medication List Medication Instructions Recorded Confirmed Type ondansetron 4 mg disintegrating 4 mg PO DIRECTED PRN Nausea And 07/29/23 07/29/23 History tablet Vomiting cefdinir 300 mg capsule 300 mg PO BID #11 caps 08/03/23 Rx gabapentin 600 mg tablet 600 mg PO TID #42 tabs 08/03/23 Rx hydroxyzine HCl 25 mg tablet 25 mg PO BID PRN anxiety #28 tabs 08/03/23 Rx lisinopril 40 mg tablet 40 mg PO DAILY #30 tabs 08/03/23 Rx metoprolol succinate 50 mg 50 mg PO QAM #30 tabs 08/03/23 Rx tablet,extended release 24 hr olanzapine 15 mg tablet 15 mg PO HS #30 tabs 08/03/23 Rx Hospital Stay Data Consultations 07/29/23 20:13 ED Decision to Admit Stat 07/30/23 01:41 Consult Gastroenterology Routine Consult Psychiatry Routine 07/30/23 07:54 Consult Orthopedic Surgery Routine 07/30/23 07:55 Consult General Surgery Routine 08/03/23 07:29 Consult Cardiology Routine Diagnostic Imagining Performed 07/29/23 16:22 US RUQ [US liver] Stat 07/29/23 18:24 CT Abd and Pelvis [CT abd pelvis IV con only] Stat Liver Ultrasound 07/29/23 16:22 US liver CLINICAL HISTORY: elevated bilirubin COMPARISON STUDY: KUB June 18, 2015. FINDINGS: Hepatic echogenicity is mildly increased. Size of the liver is normal. There are no hepatic lesions. There is no biliary ductal dilatation. Common bile duct measures 3 mm in caliber. The gallbladder is normal. There are are no gallstones. There is no right hydronephrosis. Pancreas is unremarkable by sonography. IMPRESSION: 1. No gallstones or biliary ductal dilatation. 2. Increased hepatic echogenicity suggestive of hepatic steatosis. ACT 112: Negative or not required by law. Electronically signed by: Triston Dewey M.D. 07/29/2023 5:20 PM Abdomen/Pelvis CT 07/29/23 18:24 CT OF THE ABDOMEN AND PELVIS WITH CONTRAST CLINICAL HISTORY: abdominal pain; elevated bilirubin COMPARISON STUDY: Right upper quadrant ultrasound performed earlier today. TECHNIQUE: Following IV administration of 88 mL of Optiray, axial images of the abdomen and pelvis were obtained from the lung bases to the proximal femurs. Images were reviewed in the axial, sagittal, and coronal planes. IV contrast was administered without complication. Automated exposure control was utilized for the study. A dose lowering technique was utilized adhering to the principles of ALARA. CT DOSE: 511.2 mGy.cm FINDINGS: Lung bases are unremarkable. No pneumatosis, free air or portal venous gas is present. There is hepatic steatosis. Size of the liver is normal. No hepatic lesions are identified. There is no biliary or pancreatic ductal dilatation. No peripancreatic or pericholecystic infiltration is present. Spleen, adrenal glands and kidneys are normal. There is no hydronephrosis. Pancreas is unremarkable. There is severe narrowing of the proximal celiac axis. The narrowing and configuration suggest median arcuate ligament as the etiology. The main, right and left portal veins are patent. There is no ascites. Caliber and wall thickness of small and large bowel are normal. The appendix is normal. Ovaries are not enlarged. There is subtle subchondral sclerosis within the bilateral femoral heads without collapse. No acute fractures are identified within the visualized skeletal structures. IMPRESSION: 1. Hepatic steatosis. Normal liver morphology. 2. No biliary or pancreatic ductal dilatation. 3. 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 4. Possible avascular necrosis of the bilateral femoral heads without collapse. 5. No bowel obstruction. No bowel wall thickening. Normal appendix. ACT 112: Negative or not required by law. Electronically signed by: Triston Dewey M.D. 07/29/2023 7:14 PM Cervical Spine X-Ray 08/01/23 09:00 XR cervical spine 2 or 3V HISTORY: 28 years-old Female 06/27 pain acute neck pain COMPARISON: None TECHNIQUE: 3 views of the cervical spine FINDINGS: No acute fracture, subluxation or significant degenerative changes. No prevertebral edema. The imaged lung apices appear clear. IMPRESSION: No acute fracture or subluxation. ACT 112: Negative or not required by law. The above report was generated using voice recognition software. It may contain grammatical, syntax or spelling errors. Electronically signed by: Polo Cote M.D. 08/01/2023 10:02 AM Lumbar Spine X-Ray 08/01/23 09:00 XR lumbar spine 2-3V CLINICAL HISTORY: 06/27 pain TECHNIQUE: 3 views of the lumbar spine were obtained. Comparison: None available at the time of this dictation. FINDINGS: There is no evidence of an acute fracture. Vertebral body heights and disc spaces are well maintained. The alignment is normal. No soft tissue abnormality is seen. IMPRESSION: No acute fracture or subluxation. ACT 112: Negative or not required by law. Electronically signed by: Loc Tineo M.D. 08/01/2023 10:35 AM Discharge Instructions Given to Patient (Per Discharging Provider) Neelam, You were evaluated by Psychiatry and they noted that you are stable enough to be discharged home with close outpatient psychiatric followup. They recommended discharging you home with olanzapine 15mg to be taken every night and hydroxyzine 25mg to be taken NEEDED twice a day to help with your anxiety or panic attacks until you are further evaluated by your outpatient psychiatric provider. We are also discharging you with gabapentin 600mg to be taken three times a day to help with your pain. Please do NOT take this with alcohol as it can have ly effects. For your urinary tract infection, we are discharging you with about 5 more days of antibiotics (cefdinir), to be taken twice a day starting tonight. Your blood pressure was also very high while you were here. You were seen by the zinc plate grainer and they are recommending that you continue with metoprolol. We are discharging you with metoprolol SUCCINATE 50mg to be taken in the morning. Please STOP taking your home metoprolol TARTRATE medication and use the SUCCINATE instead. In addition, we are discharging you home with lisinopril 40mg to be taken every evening. Please keep close follow up with your primary care provider for further evaluation, blood pressure monitoring and continued refills of your medications. Should your symptoms return, please do not hesitate to return to the emergency room. It was a pleasure taking care of you during your time here. Total Time Total Time Spent Total Time Spent (In Minutes): > 30 minutes
[2023-08-03] MEDS ORDERED: POTASSIUM CHLORIDE CRTAB 20 MEQ TABCR PO STA (14:22)
[2023-08-03] MEDS ORDERED: MAGNESIUM OXIDE 400 MG TAB PO ONE (14:30)
== END 2023-08-03 15:56 | disposition home or self-care (01) | DRG 918 ==
LOC: ED 13:08 → 2S 22:47 → SUATTDRO 22:47 → 2S 07-30 01:47
DX: I77.4 Celiac artery compression syndrome; F13.121 Sedative, hypnotic or anxiolytic abuse with intoxication delirium; F43.10 Post-traumatic stress disorder, unspecified; G89.29 Other chronic pain; T43.592A Poisoning by other antipsychotics and neuroleptics, intentional self-harm, initial encounter; N39.0 Urinary tract infection, site not specified; I16.0 Hypertensive urgency; G47.00 Insomnia, unspecified; R74.01 Elevation of levels of liver transaminase levels; F10.151 Alcohol abuse with alcohol-induced psychotic disorder with hallucinations; B96.20 Unspecified Escherichia coli [E. coli] as the cause of diseases classified elsewhere; R00.0 Tachycardia, unspecified; I10 Essential (primary) hypertension; F41.9 Anxiety disorder, unspecified; E87.6 Hypokalemia; M87.051 Idiopathic aseptic necrosis of right femur; T42.6X2A Poisoning by other antiepileptic and sedative-hypnotic drugs, intentional self-harm, initial encounter; K76.0 Fatty (change of) liver, not elsewhere classified; M87.052 Idiopathic aseptic necrosis of left femur; Y92.89 Other specified places as the place of occurrence of the external cause

== ENCOUNTER 2024-01-05 16:20 | Inpatient (IN) ==
--- NOTE | 2024-01-05 17:06 | ED Triage Note ---
Date of Service January 05, 2024 Provider in Triage Author: Cathy Brantley History of Present Illness This patient was briefly evaluated while in triage. An abbreviated physical exam was performed. This patient is a 28-year-old Female who presents to the ED for evaluation of RUQ pain. Pt. states she feels her eyes are yellow and red. States she was hospitalized previously for "something called MALS." States she's been sick for 2 weeks. Noticed discoloration of her eyes 2 days ago. Reports history of Celiac disease. Physical Exam VITALS: Vitals are noted on the nurse's note and reviewed by myself. GENERAL: This is a 28 year old female, in no acute distress, nondiaphoretic, well-developed well-nourished. SKIN: No obvious rashes, edema, erythema HEAD: Normocephalic atraumatic. EYES: Conjunctivae without injection. Scleral icterus. NECK: No JVD. LUNGS: No retractions or accessory muscle use. MUSCULOSKELETAL: Normal gait. NEURO: Patient was alert and oriented to person place and time. No focal neurological deficits. Initial orders for labs and / or imaging were placed and patient was placed in the waiting area until a bed is available. Please see further documentation for the full ED course. MDM / Impression Impression Impression: Jaundice, UTI (urinary tract infection), Hyperbilirubinemia, Right upper quadrant abdominal pain
--- NOTE | 2024-01-05 17:33 | XRay Report ---
XR chest 1V not portable HISTORY: 28 years-old Female RUQ pain acute chest and upper abdominal pain COMPARISON: 01/31/2014 TECHNIQUE: PA view of the chest FINDINGS: Cardiomediastinal and hilar silhouettes are within normal limits. No pneumothorax, pleural effusion, airspace consolidation or pulmonary edema. Bones appear grossly intact. IMPRESSION: No acute process. ACT 112: Negative or not required by law. The above report was generated using voice recognition software. It may contain grammatical, syntax o r spelling errors. Electronically signed by: Polo Cote M.D. 01/05/2024 5:31 PM
[2024-01-05] MEDS: ONDANSETRON INJ 2 MG/ML 2 ML VIAL IV STA (17:55)
[2024-01-05 18:22] LABS: Basophils # (auto) 0.05 K/uL (0.00-0.20); Basophils % (auto) 0.7 %; Eosinophils # (auto) 0.13 K/uL (0.00-0.50); Eosinophils % (auto) 1.8 %; Hematocrit (blood only) 40.2 % (37.0-47.0); Hemoglobin 14.3 g/dl (12.0-16.0); Immature Granulocytes # (auto) 0.03 K/uL (0.01-0.20); Immature Granulocytes % (auto) 0.4 %; Lymphocytes # (auto) 1.84 K/uL (1.20-3.40); Mean Corpuscular Hemoglobin 32.4 pg (25.0-34.0); Mean Corpuscular Hgb Conc 35.6 g/dL (32.0-36.0); Mean Platelet Volume 10.3 fL (9.4-12.4); Monocytes # (auto) 0.47 K/uL (0.11-0.59); Monocytes % (auto) 6.6 %; Neutrophils # (auto) 4.55 K/uL (1.40-6.50); Neutrophils % (auto) 64.5 %; Platelet Count 143 K/uL (130-400); RDW Coefficient of Variation 15.2 % (11.5-14.5); Red Blood Count 4.42 M/uL (4.20-5.40); White Blood Count 7.07 K/ul (4.8-10.8)
[2024-01-05 18:34] LABS: Pregnancy Test, Serum Negative (Negative)
[2024-01-05 18:41] LABS: Monotest Negative (Negative)
[2024-01-05 18:44] LABS: Albumin Globulin Ratio 1.4 (0.9-2); BUN Creatinine Ratio 10.4 (10-20); Bilirubin,Total 5.8 mg/dl (0.2-1.0); Creatinine Clr Calc Pharmacy 93.1 ml/min; Est GFR (African American) 93.9 ml/min; Est GFR (Non-African American) 81.1 ml/min; Globulin 3.7 gm/dl (2.5-4.0); Magnesium 1.7 mg/dl (1.7-2.4); Potassium 3.6 mmol/L (3.5-5.1); Total Protein 8.7 gm/dl (6.0-8.3); Troponin I High Sensitivity 3.2 pg/ml (0-14)
[2024-01-05 18:48] LABS: Appearance Urine Clear (Clear); Bacteria Urine Automated 4+ (None Seen); Bilirubin Urine Negative (Negative); Blood Urine Trace (Negative); Cast Urine Automated 0-2 /lpf (0-2); Color Urine Dark Yellow; Epithelial Cell Urine Auto 0-2 /hpf (0-2); Glucose Urine UA Negative (Negative); Ketones Urine Trace (Negative); Leukocyte Esterase Urine 3+ (Negative); Nitrite Urine Negative (Negative); Protein Urine Negative (Negative); Specific Gravity Urine 1.005 (1.000-1.030); Urobilinogen Urine Positive (Negative); WBC Urine Automated 21-50 /hpf (0-5); pH Urine 6.5 (4.5-7.5)
[2024-01-05 18:49] LABS: Partial Thromboplastin Ratio 0.9; Partial Thromboplastin Time 26 Seconds (21-31); Prothrombin Time 11.2 Seconds (9.0-12.0)
[2024-01-05] MEDS: OPTIRAY 320 125ml IV ONE (18:58)
[2024-01-05 19:25] LABS: Amphetamines+Metham, Urine Pos (Neg); Barbiturates, Urine Neg (Neg); Benzodiazepine, Urine Neg (Neg); Cocaine, Urine Neg (Neg); MDMA (Ecstacy), Urine Neg (Neg); Marijuana, Urine Pos (Neg); Methadone, Urine Neg (Neg); Opiate, Urine Neg (Neg); Phencyclidine, Urine Neg (Neg)
--- NOTE | 2024-01-05 19:29 | CT Scan Report ---
Exam(s): CTA ABDOMEN + PELVIS With Contrast IV Amt: OPTIRAY 320 115ML EXAM: CT Angiography Abdomen and Pelvis With Intravenous Contrast CLINICAL HISTORY: Reason for exam: RUQ pain, history MALS. TECHNIQUE: Axial computed tomographic angiography images of the abdomen and pelvis with intravenous contrast. CTDI is 24 mGy and DLP is 672.39 mGy-cm. Automated exposure control was utilized for the study. A dose lowering technique was utilized adhering to the principles of ALARA. MIP reconstructed images were created and reviewed. CONTRAST: Patient received OPTIRAY 320 115ML of IV contrast COMPARISON: 07/29/23 FINDINGS: Lung bases are clear. There is no abdominal aortic aneurysm or dissection. Previously seen severe narrowing at the origin of the celiac artery is no longer visible. Celiac artery and its branches appear adequately patent. SMA, single bilateral renal arteries, JEROME, and bilateral iliac arteries are adequately patent. There is no adenopathy, free air, or significant free fluid. Again demonstrated is hepatic steatosis. No focal liver lesion is seen. Gallbladder, spleen, pancreas, adrenal glands, and kidneys are unremarkable. There is no bowel obstruction or mucosal thickening. Appendix is normal. Uterus is unremarkable. Tampon is present in the vagina. Urinary bladder is normal. Regional skeleton appears intact. 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 IMPRESSION: 1. No acute findings. 2. Previously observed severe narrowing of the celiac artery origin is not evident on today's exam. 3. 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 Electronically signed by: Kasey Richards M.D. 01/05/24 19:29 PM
--- NOTE | 2024-01-05 19:37 | Emergency Department Note ---
Impression & Plan Jaundice, UTI (urinary tract infection), Hyperbilirubinemia, Right upper quadrant abdominal pain ED Provider Note NAME: NAVDEEP CAST AGE: 28 SEX: F : 1995 ARRIVES VIA: Walk-In INFORMANT: Patient, ED PROVIDER(S): Ambrocio Munguia DO CHIEF COMPLAINT: Abdominal pain HPI: The patient is a 28-year-old female who presented to the emergency department for abdominal pain. She has been having symptoms of not feeling well for many weeks but over the course the last few days she started noticing worsening right upper quadrant abdominal pain nausea vomiting and she noticed that her eyes were turning yellow. She denies having any rectal bleeding or hematemesis. She denies having any chest pain but has noticed some lower extremity swelling. The patient's not been seen by her family doctor. The patient had worsening symptoms so she presented to the emergency department for further evaluation. ROS: See above HPI for pertinent positives & negatives. A total of 10 systems reviewed and were otherwise negative. PAST MEDICAL HISTORY: See Below PAST SURGICAL HISTORY: See Below FAMILY HISTORY: See Below SOCIAL HISTORY: See Below HOME MEDICATIONS: See Below ALLERGIES: See Below VITALS: See Below PHYSICAL EXAMINATION: GENERAL: Patient is awake alert in no acute distress patient is resting comfortably and showing no signs of anxiety EYES: The conjunctivae are icteric. The pupils are round and reactive. EARS, NOSE, MOUTH AND THROAT: The nose is without any evidence of any deformity. NECK: The neck is nontender and supple. RESPIRATORY: Normal respiratory effort is noted there is no evidence of wheezing rhonchi or rales CARDIOVASCULAR: Regular rate and rhythm noted there no murmurs rubs or gallops normal S1 normal S2. GASTROINTESTINAL: The abdomen is soft and mildly distended. There is right upper quadrant tenderness to palpation. MUSCULOSKELETAL/EXTREMITIES: There is no evidence of gross deformity full range of motion is noted in the hips and shoulders. SKIN: There is no obvious evidence of any rash. Trace pedal edema was noted bilaterally. NEUROLOGIC: Patient is awake alert and oriented x3 strength is symmetric patellar reflexes are 2+ bilaterally MEDICAL DECISION MAKING: The patient is a 28-year-old female who presented to the emergency department for abdominal pain. Patient was found to have abdominal pain and abnormal LFTs. She does have a history of alcohol abuse in the past but not currently. Given the patient's laboratory findings as well as her degree of pain I discussed her condition with the on-call [facility] hospitalist. They have agreed to evaluate the patient in the emergency department for further management and disposition. The patient was given IV fluids and IV pain medication. The patient was also treated for IV antibiotics for presumed urinary tract infection noted on urinalysis. Triage Nursing notes reviewed. Prior medical records reviewed Vital Signs: reviewed and remarkable for elevated blood pressure. Differential diagnosis: Etiologies such as appendicitis, diverticulitis, obstruction, inflammatory bowel disease, renal colic, PUD, biliary pathology, pancreatitis, mesenteric ischemia, aortic pathology, infections, genitourinary, UTI, perforated viscus, as well as others were entertained. ER treatment provided: See below Diagnostics interpreted by me: ECG: EKG was obtained in the emergency department. My interpretation is normal sinus rhythm at 64 bpm. There is no ectopy. There is no acute ST segment abnormalities noted. This was compared to a tracing from August 03, 2023. No changes were noted. Cardiac Monitoring: An order was placed for continuous cardiac monitoring. The monitor shows a rate of 96 bpm with sinus rhythm. Laboratory studies: As stated above and show below. Imaging studies: See below. Radiographic imaging was reviewed by myself Consultation(s): I discussed this case with the [facility] Hospitalist team. They have agreed to evaluate the patient in the emergency department Past Med/Surg History Medical History HTN (hypertension), benign Alcohol use disorder Social History Smoking Status: Current every day smoker Tobacco Type: E-cigarettes / Vaping Hx Alcohol Use: Yes Alcohol type: other Hx Substance Use: Yes (pt denied, + marijuana) Last Used Substance: Unknown Last Used Substance Other:: pt denying any illicit drugs Preferred Language: Welsh Communication Ability: Effective Beliefs That Will Affect Care: None Current Living Situation: Alone Feels Safe at Home: Yes Gender Identity: Female Assistive Devices: None Allergies Allergies Allergy/AdvReac Type Severity Reaction Status Date / Time gluten Allergy Intermediate CELIAC Verified 01/05/24 19:56 DISEASE Home Meds Home Medications Medication Instructions Recorded Confirmed clonazepam 0.5 mg tablet 0.5 mg PO BID PRN Anxiety 01/05/24 01/05/24 clonazepam 1 mg tablet 1 mg PO BID PRN Anxiety 01/05/24 01/05/24 dextroamphetamine-amphetamine 10 10 mg PO BID 01/05/24 01/05/24 mg tablet lisinopril 40 mg tablet 40 mg PO DAILY 01/05/24 01/05/24 ondansetron HCl 4 mg tablet 4 mg PO DAILY PRN NAUSEA/VOMITING 01/05/24 01/05/24 paroxetine HCl 10 mg tablet 10 mg PO QAM 01/05/24 01/05/24 zolpidem 5 mg tablet 5 mg PO HS PRN Sleep 01/05/24 01/05/24 Previous Rx's Medication Instructions Recorded metoprolol succinate 50 mg 50 mg PO QAM #90 tabs 09/28/23 tablet,extended release 24 hr lorazepam 0.5 mg tablet (Ativan) 0.5 mg PO DAILY PRN anxiety #20 12/14/23 tabs Results & Data (ED) Vital Signs Vital Signs - 24 hr 01/05/24 17:04 01/05/24 19:35 01/05/24 19:37 Temperature 36.7 C Temperature Source Temporal Artery Scan Pulse Rate 111 H 73 Pulse Rate [Apical] 72 Pulse Rhythm Pulse Rhythm [Apical] Regular Pulse Strength [Apical] Normal Respiratory Rate 20 18 Respiratory Effort / Characteristics Non-Labored Spontaneous Non-Labored Respiratory Depth Normal Normal Respiratory Pattern Regular Blood Pressure 142/96 H Blood Pressure [Left Arm] 143/107 H Blood Pressure Mean 111 Blood Pressure Mean [Left Arm] 119 Pulse Oximetry 98 99 Oxygen Delivery Method Room Air Room Air Sepsis Recent Fever Within 48 Hours No Sepsis New/Unexplained Change in Mental Status N/A Sepsis Action Taken by Nursing No Action Required 01/05/24 19:37 01/05/24 19:47 01/05/24 21:00 Temperature Temperature Source Pulse Rate 68 Pulse Rate [Apical] 67 96 H Pulse Rhythm Regular Pulse Rhythm [Apical] Pulse Strength [Apical] Respiratory Rate 18 18 17 Respiratory Effort / Characteristics Respiratory Depth Respiratory Pattern Blood Pressure Blood Pressure [Left Arm] 139/103 H 134/104 H Blood Pressure Mean Blood Pressure Mean [Left Arm] 115 114 Pulse Oximetry 100 98 96 Oxygen Delivery Method Room Air Room Air Room Air Sepsis Recent Fever Within 48 Hours Sepsis New/Unexplained Change in Mental Status Sepsis Action Taken by Shelter Medications Current Medication List: was personally reviewed by me Laboratory Data Attestation: I reviewed the patient's lab results. 01/05/24 17:42 01/05/24 17:42 Lab Results 01/05/24 01/05/24 Range/Units 17:42 Unknown WBC 7.07 (4.8-10.8) K/ul RBC 4.42 (4.20-5.40) M/uL Hgb 14.3 (12.0-16.0) g/dl Hct 40.2 (37.0-47.0) % MCV 91.0 (80.0-100.0) fL MCH 32.4 (25.0-34.0) pg MCHC 35.6 (32.0-36.0) g/dL RDW Std Deviation 50.0 H (36.4-46.3) fL RDW Coeff of Ken 15.2 H (11.5-14.5) % Plt Count 143 (130-400) K/uL MPV 10.3 (9.4-12.4) fL Immature Gran % (Auto) 0.4 % Neut % (Auto) 64.5 % Lymph % (Auto) 26.0 % Ashley % (Auto) 6.6 % Eos % (Auto) 1.8 % Baso % (Auto) 0.7 % Neut # (Auto) 4.55 (1.40-6.50) K/uL Lymph # (Auto) 1.84 (1.20-3.40) K/uL Ashley # (Auto) 0.47 (0.11-0.59) K/uL Eos # (Auto) 0.13 (0.00-0.50) K/uL Baso # (Auto) 0.05 (0.00-0.20) K/uL Immature Gran # (Auto) 0.03 (0.01-0.20) K/uL PT 11.2 (9.0-12.0) Seconds INR 1.0 (0.9-1.1) APTT 26 (21-31) Seconds PTT Ratio 0.9 Sodium 133 L (136-145) mmol/L Potassium 3.6 (3.5-5.1) mmol/L Chloride 95 L (98-107) mmol/L Carbon Dioxide 26 (21-32) mmol/L Anion Gap 12 H (3-11) BUN 10 (6-23) mg/dl Creatinine 0.96 (0.6-1.2) mg/dl Est Cr Clr Drug Dosing 93.1 ml/min Est GFR ( Amer) 93.9 ml/min Est GFR (Non-Af Amer) 81.1 ml/min BUN/Creatinine Ratio 10.4 (10-20) Glucose 90 (70-99(Fasting)) mg/dl Calcium 10.0 (8.6-10.3) mg/dl Magnesium 1.7 (1.7-2.4) mg/dl Total Bilirubin 5.8 H (0.2-1.0) mg/dl Direct Bilirubin 1.1 H (0-0.2) mg/dl AST 243 H (13-39) U/L ALT 78 H (7-52) U/L Alkaline Phosphatase 150 H (34-104) U/L Troponin I High Sens 3.2 (0-14) pg/ml Total Protein 8.7 H (6.0-8.3) gm/dl Albumin 5.0 (3.4-5.0) gm/dl Globulin 3.7 (2.5-4.0) gm/dl Albumin/Globulin Ratio 1.4 (0.9-2) Lipase 4 L (11-82) U/L Procalcitonin 0.12 (0-0.5) ng/ml HCG, Qual Negative (Negative) Urine Color Dark Yellow Urine Appearance Clear (Clear) Urine pH 6.5 (4.5-7.5) Ur Specific [place] 1.005 (1.000-1.030) Urine Protein Negative (Negative) Urine Glucose (UA) Negative (Negative) Urine Ketones Trace H (Negative) Urine Blood Trace H (Negative) Urine Nitrite Negative (Negative) Urine Bilirubin Negative (Negative) Urine Urobilinogen Positive H (Negative) Ur Leukocyte Esterase 3+ H (Negative) Urine WBC (Auto) 21-50 H (0-5) /hpf Urine RBC (Auto) 3-5 H (0-2) /hpf U Hyaline Cast (Auto) 0-2 (0-2) /lpf U Epithel Cells (Auto) 0-2 (0-2) /hpf Urine Bacteria (Auto) 4+ H (None Seen) Urine Opiates Screen Neg (Neg) Ur Methadone, Qual Neg (Neg) Urine Barbiturates Neg (Neg) Ur Phencyclidine (PCP) Neg (Neg) U Amphetamin/Meth Scrn Pos H (Neg) MDMA (Ecstasy) Screen Neg (Neg) U Benzodiazepines Scrn Neg (Neg) Ur Cocaine Metabolite Neg (Neg) U Marijuana (THC) Screen Pos H (Neg) Ethyl Alcohol mg/dL < 10.0 (<10.0) mg/dl Monoscreen Negative (Negative) Administered Medications Discontinued Medications Ceftriaxone Sodium (Rocephin) 2,000 mg in 50 mls @ 100 mls/hr IV NOW STA Stop: 01/05/24 20:02 Last Admin: 01/05/24 20:25 Dose: 100 mls/hr Documented By: CAM Sodium Chloride (Nss) 1,000 mls @ 999 mls/hr IV .Q1H1M ONE Stop: 01/05/24 21:32 Last Admin: 01/05/24 21:01 Dose: 999 mls/hr Documented By: CAM Ioversol (Optiray 320 125ml) 115 ml IV ONCE ONE Stop: 01/05/24 18:57 Last Admin: 01/05/24 18:58 Dose: 115 ml Documented By: DOLLY Ketorolac Tromethamine (Ketorolac Tromethamine 15 Mg/Ml Vial) 15 mg IV NOW ONE Stop: 01/05/24 20:17 Last Admin: 01/05/24 20:25 Dose: 15 mg Documented By: CAM Ondansetron HCl (Ondansetron Inj 2 Mg/Ml 2 Ml Vial) 4 mg IV NOW STA Stop: 01/05/24 17:46 Last Admin: 01/05/24 17:55 Dose: 4 mg Documented By: ANTWON Imaging Data Attestation: I personally reviewed and interpreted this imaging study as follows: My Impression: CT of the abdomen pelvis was obtained in the emergency department. My interpretation is no free air or signs of bowel obstruction, final report below. Radiologist's Impression: Abdomen/Pelvis CTA 01/05/24 17:05 Exam(s): CTA ABDOMEN + PELVIS With Contrast IV Amt: OPTIRAY 320 115ML EXAM: CT Angiography Abdomen and Pelvis With Intravenous Contrast CLINICAL HISTORY: Reason for exam: RUQ pain, history MALS. TECHNIQUE: Axial computed tomographic angiography images of the abdomen and pelvis with intravenous contrast. CTDI is 24 mGy and DLP is 672.39 mGy-cm. Automated exposure control was utilized for the study. A dose lowering technique was utilized adhering to the principles of ALARA. MIP reconstructed images were created and reviewed. CONTRAST: Patient received OPTIRAY 320 115ML of IV contrast COMPARISON: 07/29/23 FINDINGS: Lung bases are clear. There is no abdominal aortic aneurysm or dissection. Previously seen severe narrowing at the origin of the celiac artery is no longer visible. Celiac artery and its branches appear adequately patent. SMA, single bilateral renal arteries, JEROME, and bilateral iliac arteries are adequately patent. There is no adenopathy, free air, or significant free fluid. Again demonstrated is hepatic steatosis. No focal liver lesion is seen. Gallbladder, spleen, pancreas, adrenal glands, and kidneys are unremarkable. There is no bowel obstruction or mucosal thickening. Appendix is normal. Uterus is unremarkable. Tampon is present in the vagina. Urinary bladder is normal. Regional skeleton appears intact. 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 IMPRESSION: 1. No acute findings. 2. Previously observed severe narrowing of the celiac artery origin is not evident on today's exam. 3. 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 Electronically signed by: Kasey Richards M.D. 01/05/24 19:29 PM Chest X-Ray 01/05/24 17:06 XR chest 1V not portable HISTORY: 28 years-old Female RUQ pain acute chest and upper abdominal pain COMPARISON: 01/31/2014 TECHNIQUE: PA view of the chest FINDINGS: Cardiomediastinal and hilar silhouettes are within normal limits. No pneumothorax, pleural effusion, airspace consolidation or pulmonary edema. Bones appear grossly intact. IMPRESSION: No acute process. ACT 112: Negative or not required by law. The above report was generated using voice recognition software. It may contain grammatical, syntax or spelling errors. Electronically signed by: Polo Cote M.D. 01/05/2024 5:31 PM Discharge Plan Visit Data Chief Complaint: Illness Stated Complaint: JAUNDICE IN EYES,UPPER ABD PAIN/MALS, FLU LIKE SYM ED Provider: Ambrocio Munguia Discharge Problem: Jaundice, UTI (urinary tract infection), Hyperbilirubinemia, Right upper quadrant abdominal pain Patient Disposition: Being Evaluated by Hospitalist Forms Stand Alone Forms: [email or web address] Prescriptions Prescriptions: No Action metoprolol succinate 50 mg tablet extended release 24 hr 50 mg PO QAM Qty: 90 3RF Rx Instructions: Take 1 tablet daily in the morning lorazepam [Ativan] 0.5 mg tablet 0.5 mg PO DAILY PRN (Reason: anxiety) Qty: 20 0RF paroxetine HCl 10 mg tablet 10 mg PO QAM ondansetron HCl 4 mg tablet 4 mg PO DAILY PRN (Reason: NAUSEA/VOMITING) lisinopril 40 mg tablet 40 mg PO DAILY dextroamphetamine-amphetamine 10 mg tablet 10 mg PO BID clonazepam 0.5 mg tablet 0.5 mg PO BID PRN (Reason: Anxiety) Rx Instructions: TOTAL DOSE 1.5 MG--TAKES WITH 1 MG TAB. clonazepam 1 mg tablet 1 mg PO BID PRN (Reason: Anxiety) Rx Instructions: TOTAL DOSE 1.5 MG--TAKES WITH 0.5 MG TAB. zolpidem 5 mg tablet 5 mg PO HS PRN (Reason: Sleep) Referrals Referrals: Lulu Beltre MD [Primary Care Provider] -
[2024-01-05 19:58] LABS: Bilirubin Direct 1.1 mg/dl (0-0.2)
[2024-01-05] MEDS: KETOROLAC TROMETHAMINE 15 MG/ML VIAL IV ONE (20:25)
[2024-01-05] MEDS: cefTRIAXone SODIUM 2,000 MG/50 ML BAG IV STA (20:25)
--- NOTE | 2024-01-05 20:30 | History & Physical Report ---
Date of Service January 05, 2024 Assessment & Plan (1) Right upper quadrant abdominal pain: Plan: - (2) Hyperbilirubinemia: (3) Jaundice: (4) H/O attention deficit hyperactivity disorder: (5) UTI (urinary tract infection): (6) Avascular necrosis of bones of both hips: (7) Post traumatic stress disorder (PTSD): (8) Elevated LFTs: Plan #Right upper quadrant abdominal pain -Patient presented to the hospital with right upper quadrant abdominal pain and jaundice. -Elevated total bilirubin of 5.8, 1.1 direct bilirubin. Elevated AST of 243, ALT of 78, alk phos of 150. -Lipase low at 4. -CBC and PT/INR benign -Previous history of alcohol abuse. -Right upper quadrant ultrasound showed stable fatty liver, otherwise unremarkable. -Abdominal pelvis CTA negative. 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 -Hepatitis panel pending. -Toxicology negative for salicylates and alcohol. Positive for amphetamines and marijuana. -Patient has recently been started on Adderall for ADHD. -Will make patient n.p.o., Toradol as needed for pain, NSS @ 125ml/hr -Consult GI. -Will continue with daily CBC, CMP, PT/INR. -Patient may have underlying Gilbert syndrome that has been exacerbated by alcohol use disorder, though other etiologies should be explored. #UTI -UA suggestive of infection. -Urine cultures pending. -Will continue on ceftriaxone 2 g every 24 hours. #PTSD -Previous overdose with home Ambien and Seroquel. -Will hold clonazepam given liver issues, will prefer lorazepam -Will hold meds and consider restarting once liver function stabilizes. #Avascular necrosis of bones of both hips -Normal pelvis CTA showed stable avascular necrosis of the femoral heads without articular surface collapse. -Stable at this time History of Present Illness Chief Complaint: Right upper quadrant abdominal pain Primary Care Provider: Lulu Beltre MD Patient is a 28-year-old female with history of celiac disease, chronic left hip pain, major depression, mixed anxiety disorder, history of alcohol abuse, PTSD who presents to the hospital with right upper quadrant abdominal pain as well as jaundice. Patient states that she started to have symptoms of not feeling well for the past couple weeks with some nausea and vomiting. But then over the last 2 to 3 days she started to have significant right upper quadrant abdominal pain as well as yellowing of her eyes. Patient states that she has had history of alcohol abuse but has not been drinking for some time. She states that she has never used IV drugs though does take THC. She denies any recent recreational drug use besides THC. She is prescribed Adderall, Ambien, and clozapine and has been taking them as prescribed. No increased use in any of those medications. She also denies recent Tylenol use. Denies any recent travels. Allergies Allergy/AdvReac Type Severity Reaction Status Date / Time gluten Allergy Intermediate CELIAC Verified 01/05/24 19:56 DISEASE Home Medications Medication Instructions Recorded Confirmed Type metoprolol succinate 50 mg 50 mg PO QAM #90 tabs 09/28/23 01/05/24 Rx tablet,extended release 24 hr lorazepam 0.5 mg tablet (Ativan) 0.5 mg PO DAILY PRN anxiety #20 12/14/23 01/05/24 Rx tabs clonazepam 0.5 mg tablet 0.5 mg PO BID PRN Anxiety 01/05/24 01/05/24 History clonazepam 1 mg tablet 1 mg PO BID PRN Anxiety 01/05/24 01/05/24 History dextroamphetamine-amphetamine 10 10 mg PO BID 01/05/24 01/05/24 History mg tablet lisinopril 40 mg tablet 40 mg PO DAILY 01/05/24 01/05/24 History ondansetron HCl 4 mg tablet 4 mg PO DAILY PRN NAUSEA/VOMITING 01/05/24 01/05/24 History paroxetine HCl 10 mg tablet 10 mg PO QAM 01/05/24 01/05/24 History zolpidem 5 mg tablet 5 mg PO HS PRN Sleep 01/05/24 01/05/24 History Past Med/Surg History Medical History HTN (hypertension), benign Alcohol use disorder Social History Smoking Status: Never smoker Tobacco Type: E-cigarettes / Vaping Second Hand Exposure: No; Do You Dip or Chew Tobacco: No; Tobacco Cessation Education Requested by Patient: No Hx Alcohol Use: Yes Alcohol type: hard liquor and other Hx Substance Use: Yes Last Used Substance: Unknown Last Used Substance Other:: pt denying any illicit drugs Preferred Language: Pashto Communication Ability: Effective Donor Support Technician Required: No Beliefs That Will Affect Care: None Current Living Situation: Alone Other Information That Helps Us Care for You: No Feels Safe at Home: Yes Safety Concerns: Feels Safe At This Time Gender Identity: Female Assistive Devices: Hospital Bed Review of Systems Review of Systems: All systems reviewed & are unremarkable except as noted in Subjective Physical Exam Physical Exam: Constitutional: well-appearing, no acute distress HEENT: Conjunctival icterus CV: regular rhythm, no murmur appreciated, extremities well-perfused, no LE edema Resp: CTABL, no wheezes/rales/rhonchi appreciated, no increased work of breath ing GI: soft, nondistended, BS normoactive, RUQ and epigastric tenderness MSK: no gross deformities appreciated Skin: warm, dry, no rash appreciated Neuro: alert, oriented, no focal neurologic deficit appreciated Results & Data Results & Data Vital Signs (Past 12 Hours) Vital Signs Temp Pulse Pulse Resp BP BP Pulse Ox 01/05/24 19:47 67 18 139/103 H 98 01/05/24 19:37 68 18 100 01/05/24 19:37 72 18 143/107 H 99 01/05/24 19:35 73 01/05/24 17:04 36.7 C 111 H 20 142/96 H 98 O2 Del Method 01/05/24 19:47 Room Air 01/05/24 19:37 Room Air 01/05/24 19:37 Room Air 01/05/24 19:35 01/05/24 17:04 Room Air Supervising Physician Co-Signing Physician Notes Attending addendum: I have physically seen this patient, have supervised the medical residents activities, and agree with the H&P unless as otherwise noted. Assessment and Plan: Abnormal LFTs/right upper quadrant pain History of alcohol abuse Ultrasound showing fatty liver CTA abdomen pelvis negative Acute hepatitis panel pending UDS positive for amphetamines and marijuana, with recent addition of Adderall to her regimen Repeat laboratories in a.m., and depending on hepatitis panel workup, may require additional evaluation UTI- Follow urine culture sensitivity Empiric ceftriaxone 2 g IV every 24 hours Remaining orders and notations as noted
[2024-01-05] MEDS: SODIUM CHLORIDE 0.9% 1,000 ML IV ONE (21:01)
--- NOTE | 2024-01-05 22:46 | Ultrasound Report ---
Exam(s): US LIVER EXAM: US Abdomen Limited CLINICAL HISTORY: Reason for exam: RUQ tenderness. TECHNIQUE: Real-time ultrasound of the abdomen with image documentation. COMPARISON: Liver ultrasound 07/29/23. FINDINGS: Liver: Stable increased echogenicity, nonspecific, probable fatty infiltration. Gallbladder: Unremarkable. No stones or acute cholecystitis. CBD 3.6 mm. Right kidney: Unremarkable. No hydronephrosis or interval change. IMPRESSION: 1. Stable fatty liver. 2. No cholelithiasis, acute cholecystitis or acute abnormality. Electronically signed by: Ricarda Blackburn M.D. 01/05/24 22:45 PM
[2024-01-05] MEDS: SODIUM CHLORIDE 0.9% 1,000 ML IV SCH (22:51)
[2024-01-05] MEDS ORDERED: cefTRIAXone SODIUM 2,000 MG in DEXTROSE 5 % MINI-B 50 ML IV SCH (23:00)
[2024-01-05] MEDS ORDERED: LORazepam 2 MG/1 ML VIAL IV STA (23:03)
[2024-01-05] MEDS: HYDROmorphone INJ 0.5 MG/0.5 ML SYR IV STA (23:18)
[2024-01-05 23:39] LABS: Acetaminophen < 3 ug/ml (10-30)
[2024-01-06] MEDS: LORazepam 1 MG in SYRINGE 0.5 ML IV STA (00:09)
[2024-01-06] MEDS: ONDANSETRON INJ 2 MG/ML 2 ML VIAL IV PRN (00:13)
[2024-01-06] MEDS: LORazepam 2 MG/1 ML VIAL IM STA (00:17)
[2024-01-06 00:39] LABS: Salicylate < 3.0 mg/dl (3.0-30)
[2024-01-06] MEDS: HYDROmorphone INJ 0.5 MG/0.5 ML SYR IV STA (03:27)
--- NOTE | 2024-01-06 06:11 | Electrocardiogram Report ---
Test Reason : Blood Pressure : / mmHG Vent. Rate : 086 BPM Atrial Rate : 087 BPM P-R Int : 132 ms QRS Dur : 070 ms QT Int : 348 ms P-R-T Axes : 084 064 060 degrees QTc Int : 416 ms Poor data quality, interpretation may be adversely affected Sinus rhythm Nonspecific ST abnormality Abnormal ECG Confirmed by Manjit Kay ([id number]) on 01/06/2024 6:11:09 AM Referred By: REFERRED SELF Confirmed By:Gómez Kay
[2024-01-06 07:14] LABS: Basophils # (auto) 0.05 K/uL (0.00-0.20); Basophils % (auto) 0.8 %; Eosinophils # (auto) 0.18 K/uL (0.00-0.50); Eosinophils % (auto) 2.9 %; Hematocrit (blood only) 34.2 % (37.0-47.0); Immature Granulocytes # (auto) 0.02 K/uL (0.01-0.20); Immature Granulocytes % (auto) 0.3 %; Lymphocytes # (auto) 2.23 K/uL (1.20-3.40); Lymphocytes % (auto) 35.4 %; Mean Corpuscular Hemoglobin 32.5 pg (25.0-34.0); Mean Corpuscular Hgb Conc 35.1 g/dL (32.0-36.0); Mean Corpuscular Volume 92.7 fL (80.0-100.0); Mean Platelet Volume 10.2 fL (9.4-12.4); Monocytes # (auto) 0.49 K/uL (0.11-0.59); Monocytes % (auto) 7.8 %; Neutrophils # (auto) 3.33 K/uL (1.40-6.50); Neutrophils % (auto) 52.8 %; Platelet Count 115 K/uL (130-400); RDW Standard Deviation 49.8 fL (36.4-46.3); Red Blood Count 3.69 M/uL (4.20-5.40)
--- NOTE | 2024-01-06 07:24 | Hospitalist Progress Note ---
Date of Service January 06, 2024 Assessment & Plan (1) Right upper quadrant abdominal pain: Plan: - (2) Hyperbilirubinemia: (3) Jaundice: (4) H/O attention deficit hyperactivity disorder: (5) UTI (urinary tract infection): (6) Avascular necrosis of bones of both hips: (7) Post traumatic stress disorder (PTSD): (8) Elevated LFTs: Plan Pt is a 28 yo female with a past medical history of PTSD, anxiety, insomnia, ADHD, HTN, avascular necrosis of hips, and hx of MALS who presents to the hospital on 01/04 for nausea, vomiting, abdominal pain. #Right upper quadrant abdominal pain #Transaminitis, improved #Hyperbilirubinemia, improved -Patient presented to the hospital with right upper quadrant abdominal pain and jaundice -Elevated total bilirubin of 5.8, 1.1 direct bilirubin. Elevated AST of 243, ALT of 78, alk phos of 150 -Lipase low at 4. CBC and PT/INR benign -Previous history of alcohol abuse, last drink was in March 2023 -Right upper quadrant ultrasound showed stable fatty liver, otherwise unremarkable. Abdominal pelvis CTA negative. 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 -Toxicology negative for salicylates and alcohol. Positive for amphetamines and marijuana. -Patient has recently been started on Adderall for ADHD, which is held during admission -Consulted GI: started pantoprazole, continue famotidine -Hepatitis panel pending #UTI -UA suggestive of infection. -Urine cultures pending. -Will continue on ceftriaxone 2 g every 24 hours. #PTSD #Anxiety - Previous overdose with home Ambien and Seroquel noted - restarted clonazepam as 1 mg BID prn here - restarted home ambien tonight - restarted home paroxetine #HTN - hold home lisinopril and metoprolol as pressures here good the past 24 hours without #Avascular necrosis of bones of both hips, stable -Normal pelvis CTA showed stable avascular necrosis of the femoral heads without articular surface collapse. -Stable at this time IVF: LR 80 mL/hr for 2 bags Admission and Anticipated Discharge Date Admission Date: January 05, 2024 Supervising Physician Co-Signing Physician Notes ATTESTATION I also saw the patient and confirmed serna portions of the history and exam. I agree with the impression and plan in the resident documentation, and as summar ized below. 28-year-old female admitted yesterday after she presented to the emergency department noting a couple week history of increasing nausea and vomiting. Over the past 2 to 3 days she started have significant right upper quadrant abdominal pain. During our early afternoon exam, the patient is semireclined in bed. Father is visiting. Pain seems to be better to the point that she would like to try some food which her friend is bringing in. EXAM 135/85, 61, 16, 90% room air She does appear somewhat jaundiced. Heart regular rate and rhythm Respirations are nonlabored; lungs are clear Abdomen is soft, nontender except with some discomfort with firm palpation in the right mid to right upper quadrant. DATA Labs Hemoglobin 12, white blood cell count 6.3, platelet count 115 Sodium 135, potassium 3.7, BUN 13, creatinine 0.81 Total bilirubin 4.6 (down from 5.8 upon presentation); direct bilirubin yesterday was 1.1. AST 237, ALT 75, alkaline phosphatase 141 Imaging Ultrasound of the liver completed 01/05/2024 shows stable fatty liver, no cholelithiasis, acute cholecystitis or other acute abnormality. Chest x-ray completed 01/05/[address]24 shows no [address] CT scan of the abdomen and pelvis completed 01/05/2024 shows no acute findings. 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 Micro Urine culture collected 01/05/2024 shows gram-negative bacilli, speciation and sensitivity pending. IMPRESSION & PLAN UTI Right upper quadrant abdominal pain Indirect hyperbilirubinemia with jaundice Patient has previously seen gastroenterology as an outpatient; elevated bilirubin and LFTs thought secondary to combination of [place] and prior EToH use Symptoms are somewhat improved today as compared to admission; bilirubin is trending down Will slowly advance diet Zofran as needed nausea; Dilaudid as needed pain Continue home medications Appreciate GI consultation Treat UTI; await final culture Additional per resident documentation Subjective Pt is a 28 yo female with a past medical history of PTSD, anxiety, insomnia, ADHD, HTN, avascular necrosis of hips, and hx of MALS who presents to the hospital on 01/04 for nausea, vomiting, abdominal pain. Today, pt states she really has not eaten in 3 days so has not had as much nausea but is still quite nauseated at times with an "acid" pain in her stomach. She states she just generally feels unwell and is frustrated that she has not yet gotten an answer to why. Pain is improved with the dilaudid. When seen later in the morning/early afternoon, pt did note someone was bringing her an egg sausage wrap for lunch and wanted to try that. Nursing staff informed me that she vomited with that so was switched to a clear diet for dinner and will advance as tolerated. Review of Systems Review of Systems: Per HPI. Physical Exam Physical Exam: General:Alert and oriented, no acute distress, HEENT: Normocephalic, moist oral mucosa, Cardio: Regular rate and rhythm, no murmur, Resp:Lungs clear to auscultation b/l, no wheezes or rhonchi, GI: Soft, nondistended, bowel sounds active, tenderness noted RUQ and epigastric areas Skin: Warm, pink, dry, Results & Data Results & Data Vital Signs (Past 12 Hours) Vital Signs Temp Pulse Pulse Pulse Resp BP Pulse Ox 01/05/24 22:10 01/05/24 22:10 36.6 C 60 16 120/86 100 01/05/24 21:00 96 H 17 134/104 H 96 01/05/24 19:47 67 18 139/103 H 98 01/05/24 19:37 68 18 100 01/05/24 19:37 72 18 143/107 H 99 01/05/24 19:35 73 Pulse Ox O2 Del Method O2 Del Method 01/05/24 22:10 100 Room Air 01/05/24 22:10 Room Air 01/05/24 21:00 Room Air 01/05/24 19:47 Room Air 01/05/24 19:37 Room Air 01/05/24 19:37 Room Air 01/05/24 19:35 Resident Activity Tracking Resident Involvement: Resident Care Provided Care Provided: Adult Hospital Medicine
[2024-01-06 07:42] LABS: Albumin Globulin Ratio 1.3 (0.9-2); Albumin Level 3.9 gm/dl (3.4-5.0); Bilirubin,Total 4.6 mg/dl (0.2-1.0); Calcium 9.1 mg/dl (8.6-10.3); Creatinine Clr Calc Pharmacy 110.7 ml/min; Est GFR (African American) 115.4 ml/min; Est GFR (Non-African American) 99.5 ml/min; Globulin 3.1 gm/dl (2.5-4.0); Potassium 3.7 mmol/L (3.5-5.1)
[2024-01-06 07:45] LABS: INR 1.1 (0.9-1.1); Partial Thromboplastin Ratio 0.9; Partial Thromboplastin Time 26 Seconds (21-31); Prothrombin Time 11.5 Seconds (9.0-12.0)
[2024-01-06] MEDS: FAMOTIDINE 20 MG TAB PO SCH (08:56)
[2024-01-06] MEDS: HYDROmorphone INJ 0.5 MG/0.5 ML SYR IV PRN ×2 (08:57→14:07)
--- NOTE | 2024-01-06 11:03 | Gastrointestinal Consultation ---
Date of Consultation January 06, 2024 Assessment & Plan (1) UTI (urinary tract infection): (2) Jaundice: (3) Elevated LFTs: (4) Right upper quadrant abdominal pain: Will add Pantoprazole 40 mg by mouth daily Continue to treat UTI with Ceftriaxone Due to unconjugated hyperbilirubinemia recommend peripheral smear, reticuloctye count and ceruloplasmin level Will need further workup as outpatient, as it could be secondary to Gilbert's, however, her numbers are slightly higher than I would anticipate for this. Advised to avoid all alcohol as it is a known liver toxin Advance diet as tolerated History of Present Illness Reason for Consultation: Elevated liver enzymes Attending Physician: Luisito Davey MD History of Present Illness Neelam Gallegos is a 28 yo female who presented to the ER yesterday with a 1 week history of RUQ abdominal pain, nausea, vomiting, and jaundice. Upon arrival to the ER, she was noted to have an elevation of AST ALT and Bili Total. She underwent a CT abd/pelvis and RUQ US which showed fatty liver, but no evidence of cholecystitis, cholelithiasis or biliary ductal dilation. She had previously been seen at [facility] by Dr. Tsang of Gastroenterology for elevated bilirubin and he felt her elevation was secondary to alcohol abuse, medications and Gilbert's. She was also noted to have a UTI in the ER. She was subsequently admitted given IV Abx, narcotic analgesics and antiemetics as needed. At the time I saw her, she has not had any further nausea, or vomiting, and notes that her pain has greatly improved. She denies any fevers, chills, hematemesis, melena, or hematochezia. She does continue to note scleral icterus and dark urine. She does ask for an advanced diet. She has no further complaints. Allergies Allergy/AdvReac Type Severity Reaction Status Date / Time gluten Allergy Intermediate CELIAC Verified 01/05/24 19:56 DISEASE Home Medications Medication Instructions Recorded Confirmed Type metoprolol succinate 50 mg 50 mg PO QAM #90 tabs 09/28/23 01/05/24 Rx tablet,extended release 24 hr lorazepam 0.5 mg tablet (Ativan) 0.5 mg PO DAILY PRN anxiety #20 12/14/23 01/05/24 Rx tabs clonazepam 0.5 mg tablet 0.5 mg PO BID PRN Anxiety 01/05/24 01/05/24 History clonazepam 1 mg tablet 1 mg PO BID PRN Anxiety 01/05/24 01/05/24 History dextroamphetamine-amphetamine 10 10 mg PO BID 01/05/24 01/05/24 History mg tablet lisinopril 40 mg tablet 40 mg PO DAILY 01/05/24 01/05/24 History ondansetron HCl 4 mg tablet 4 mg PO DAILY PRN NAUSEA/VOMITING 01/05/24 01/05/24 History paroxetine HCl 10 mg tablet 10 mg PO QAM 01/05/24 01/05/24 History zolpidem 5 mg tablet 5 mg PO HS PRN Sleep 01/05/24 01/05/24 History Patient History Medical History HTN (hypertension), benign Alcohol use disorder Social History Smoking Status: Never smoker Tobacco Type: E-cigarettes / Vaping Second Hand Exposure: No; Do You Dip or Chew Tobacco: No; Tobacco Cessation Education Requested by Patient: No Hx Alcohol Use: Yes Alcohol type: hard liquor and other Hx Substance Use: Yes Last Used Substance: Unknown Last Used Substance Other:: pt denying any illicit drugs Preferred Language: Lao Communication Ability: Effective Hand Picker Required: No Beliefs That Will Affect Care: None Current Living Situation: Alone Other Information That Helps Us Care for You: No Feels Safe at Home: Yes Safety Concerns: Feels Safe At This Time Gender Identity: Female Assistive Devices: Hospital Bed Review of Systems Review of Systems: All systems reviewed & are unremarkable except as noted in Subjective Physical Exam Constitutional: WD/WN, vitals as above ENMT: external ear and nose normal, oropharynx normal Neck: trachea midline, no thyromegaly Respiratory: normal respiratory effort, lungs clear to auscultation Cardiovascular: RRR, no murmur, no edema Gastrointestinal (Abdomen): normal bowel sounds, soft, nontender, no hepatosplenomegaly Skin: + jaundice Psychiatric: A+Ox3, euthymic affect Results & Data Vital Signs (Past 12 Hours) Vital Signs Temp Pulse Resp BP Pulse Ox O2 Del Method 01/06/24 07:32 36.3 C L 60 16 109/70 99 Room Air PG Care Time/CCT Total # of Minutes Spent Total Time Spent with Patient: Total time spent is greater than 50% in coordination of care (as documented) at patient's floor/unit and/or counseling patient: Coding Level of Care Code 36121 IN/OBS CONSULT LVL 4,60M Diagnoses UTI (urinary tract infection) N39.0 Jaundice R17 Elevated LFTs R79.89 Right upper quadrant abdominal pain R10.11
[2024-01-06] MEDS: PARoxetine HCL 10 MG TAB PO SCH (11:05)
[2024-01-06 12:37] LABS: Reticulocyte % 1.75 % (0.50-2.00)
[2024-01-06] MEDS: PANTOprazole 40 MG TAB PO SCH (12:41)
[2024-01-06] MEDS: LACTATED RINGER'S 1,000 ML IV SCH (12:59)
--- OUTSIDE RECORDS SUMMARY | 2024-01-06 16:41 | External Medical Summary | Summary of Care ---
Author Name Unknown Organization [facility] Address [address] [place] [address] Phone [phone] Care Team Providers Care Dryer Operator Name Role Phone Sunni Hoff MD Primary Care Provider [phone] Reason for Visit * - Authorized Specialty Diagnoses / Procedures Referred By Julio jensen Referred To Contact Referral ID Status Reason Start Date Expiration Date V isits Requested Visits Authorized [id number] Authorized 07/19/2023 07/17/[phone] Encounter Details Date Type Department Care Team (Latest Contact Info) Description 01/02/2024 12:30 PM EDT Telemedicine [facility] [address] [place] [address] Kj Trent MD [address], [place] [id number] PTSD (post-traumatic stress disorder)*; Depressive disorder; JOSE D (generalized anxiety disorder); ADHD, predominantly inattentive type Allergies Active Allergy Reactions Criticality Noted Date Comments Gluten Meal 11/18/2015 gluten Prazosin Hives 12/05/2023 documented as of this encounter (statuses as of 01/02/2024) Medications Medication Sig Dispensed Refills Start Date End Date Status PARoxetine HCl 10 MG Oral Tablet (Paxil) Take 1 Tablet by mouth in the morning. 30 Tablet 1 12/05/2023 Active Zolpidem Tartrate 5 MG Oral Tablet (Ambien) Take 1 Tablet by mouth at bedtime as needed for Sleep. 30 Tablet 1 12/05/2023 Active Amphetamine-Dextr oamphetamine 10 MG Oral Tablet (Adderall) Take 1 tab in the morning and 1 tab in the early afternoon 60 Tablet 0 01/02/2024 Active Ondansetron HCl 4 MG Oral Tablet Take 1 Tablet by mouth daily as needed for Nausea. 30 Tablet 1 01/02/2024 Active clonazePAM 0.5 MG Oral Tablet (KlonoPIN) Take 1 Tablet by mouth 2 times a day as needed for Anxiety. Take with 1mg tablets 60 Tablet 1 01/02/2024 Active clonazePAM 1 MG Oral Tablet (KlonoPIN) Take 1 Tablet by mouth 2 times a day as needed for Anxiety. 60 Tablet 1 01/02/2024 Active clonazePAM 1 MG Oral Tablet (KlonoPIN) Take 1 Tablet by mouth daily as needed for Anxiety. 30 Tablet 1 12/05/2023 01/02/2024 Discontinued (Refill) clonazePAM 1 MG Oral Tablet (KlonoPIN) Take 1 Tablet by mouth 2 times a day as needed for Anxiety. 60 Tablet 1 01/02/2024 01/02/2024 Discontinued (Refill) clonazePAM 0.5 MG Oral Tablet (KlonoPIN) Take 1 Tablet by mouth 2 times a day as needed for Anxiety. Take with 1mg tablets 60 Tablet 1 01/02/2024 01/02/2024 Discontinued (Refill) documented as of this encounter (statuses as of 01/02/2024) Active Problems Problem Noted Date Diagnosed Date MDD (major depressive disord er), recurrent episode, moderate 07/27/2023 History of alcohol abuse 07/27/2023 PTSD (post-traumatic stress disorder) 07/27/2023 Other mixed anxiety disorders 09/07/2016 Intermittent palpitations 09/07/2016 General counseling and advice for contraceptive management 08/23/2016 Overview: [employer] Randee--went off francisca and will [facility] soon Celiac disease 06/16/2016 Overview: diag with labs 06/2015 at [facility] Chronic left hip pain 06/16/2016 Overview: Fu pain mgmt [facility] and ortho documented as of this encounter (statuses as of 01/02/2024) Immunizations Name Administration Dates Next Due DT [...] Answer Date Recorded PHQ Adult Total Score 2 12/14/2023 Hunger Vital Sign Answer Date Recorded Within the past 12 months, y ou worried that your food would run out before you got the money to buy more. Never true 08/30/20 23 Within the past 12 months, t he food you bought just didn't last and you didn't have money to get more. Never true 08/30/2023 Sex and Gender Information Value Date Recorded Sex Assigned at Female 07/26/2023 1:02 PM EST Gender Identity Female 07/26/2023 1:02 PM EST Sexual Orientation Bisexual 07/26/2023 1: 02 PM EST documented as of this encounter Progress Notes * Kj Trent MD - 01/02/2024 12:37 PM EDT OUTPATIENT PSYCHIATRY RETURN VISIT DIVISION OF PSYCHIATRY [place] [address] Name: Neelam Jara : 1995 Date and Time Patient was Seen: 01/02/2024 at 12:37 PM After connecting through televideo, patient was verified with two unique identifiers. Patient (or authorized legal delivery representative) was then informed that this was a Telemedicine visit and that the exam was being conducted confidentially over secure lines. My office door was closed. No one else was in the room with me. Patient acknowledged consent and understanding of privacy and security of the Telemedicine visit and gave permission to have a telemedicine presenter stay in the room in order to assist with the history and to conduct the exam as needed. I informed the patient that I have reviewed their record in [facility] and presented the opportunity for them to ask any questions regarding the visit today. The patient agreed to participate. Additional telemed for psych required: Provider reviewed elements of Outpatient Services Description including limits of confidentiality, how to contact the department, risks and benefits of treatment and consent for treatment. Patient isunable to sign acknowledgment receiving form. Signature will be obtained when Covid 19 crisis has passed and in person services resume. For [facility] members, Encounter Form unable to be signed, signature exempt - Telehealth, and will beobtained when Covid 19 crisis has passed and in person services resume. Treatment plan signature page document signatures may be marked "signature exempt - Telehealth" with a provider policy to obtain signatures as soon as possible after the COVID-19 crisis has passed and in person services resume. Start Time: 1230 Stop Time: 1250 Total direct [id number] time: 20 minutes Patient location: HOME. I was not in a hospital or clinic location. After connecting through televideo, patient was verified with two unique identifiers. Patient (or authorized legal delivery representative) was then informed that this was a Telemedicine visit and being conducted confidentially over secure lines. Methods to assure confidentiality were taken. Patient acknowledged consent and understanding of privacy and security of the Telemedicine visit. The patient agreed to participate. CC: Follow-up Neelam Jara is a 28 year old female patient with a history of JOSE D, MDD, PTSD, ADHD, alcohol use disorder in remission who presents for an evaluation. She is currently unemployed. INTERVAL HISTORY: Neelam reports that her anxiety is about the same. The Klonopin is slightly helpful. She notes that she is staying at home most of the time due to anxiety. She notes that her mood has been okay. She issleeping better with the Ambien. She notes that her energy is low. Her concentration is poor. She has a history of ADHD. She previously took Adderall 10mg BID. Her appetite has been low. ADHD Original onset of symptoms: Age: Childhood Overall trajectory since original onset: Ongoing Current severity: Functionally limiting Last time symptoms caused problems: Current ADHD symptoms cause impairment in following areas: [x]Work/education []Relationships with family []Social contacts [x]Free time/hobby []Self confidence/self image ADHD inattention symptoms During Adulthood During childhood 1. Failure to give close attention to details or makes careless mistakes 2. Difficulty to sustain attention on tasks x x 3. Often does not seem to listen when spoken to directly 4. Does not follow through on instructions and fail to finish chores/duties x x 5. Difficulty organizing tasks and activities x x 6. Avoidance or unwillingness to do tasks that require sustained mental effort x x 7. Losing things x x 8. Easily distracted by external stimuli x x 9. Forgetful during daily activities x x ADHD impulsive and hyperactive symptoms During Adulthood During Childhood 1. Fidgeting hands/feet/ in chair 2. Stand up in situations where are expected to be seated 3. Feeling of restlessness inside 4. Difficulty doing activites quietly 5. Often on the go or as if 'driven by a motor' 6. Excessive talking 7. Answering before questions have been completed 8. Difficulty waiting for ones turn 9. Interrupt activities of others or intrude on others Pt reports good adherence with medication and denies side effects. Pt denies SI. No manic symptoms, psychotic symptoms, AH, VH or HI elicited. [place]IA-SUICIDE SEVERITY RATING SCALE Frequent Screener Ask questions that are bold and underlined Since Last Contact (Julian with an X) YES NO Have you actually had thoughts about killing yourself? x If YES, ask the following questions. If NO, go directly to the last question Have you been thinking about how you might do this? Have you had these thoughts and had some intention of acting on them? E.g. I thought about taking an overdose, but I never made a specific plan as to when where or how I would actually do it.and I would never go through with it. Have you started to work out or worked out the details of how to kill yourself? Do you intend to carry out this plan? As opposed to I have the thoughts, but I definitely will not do anything about them. Have you done anything, started to do anything, or prepared to do anything to end your life? Examples: Collected pills, obtained a gun, gave away valuables, wrote a will or suicide note, took out pills but didn't swallow any, held a gun but changed your mind or it was grabbed from your hand,went to the roof but didn't jump; or actually took pills, tried to shoot yourself, cut yourself, tried to hang yourself, etc. x Low Risk Complete or review crisis plan with patient Discuss risk/protective factors and reasons for living Moderate Risk Complete or review crisis plan with patient Discuss risk/protective factors and reasons for living Discuss removal of means High Risk Maintain 1 to 1 monitoring until assessment is completed Evaluate for higher level of care (Inpatient or PHP) Consultation with Emergency Services as appropriate If patient not admitted: Complete or review crisis plan with patient Discuss risk/protective factors and reasons for living Advise removal of means Consider family or collateral contact to promote safety Schedule follow up care consistent with assessment ALLERGIES Review of patient's allergies indicates: Allergen Reactions Gluten Meal gluten Prazosin Hives CURRENT MEDICATIONS: Current Outpatient Medications Medication Sig Dispense Refill clonazePAM 1 MG Oral Tablet (KlonoPIN) Take 1 Tablet by mouth daily as needed for Anxiety. 30 Tablet 1 PARoxetine HCl 10 MG Oral Tablet (Paxil) Take 1 Tablet by mouth in the morning. 30 Tablet 1 Zolpidem Tartrate 5 MG Oral Tablet (Ambien) Take 1 Tablet by mouth at bedtime as needed for Sleep. 30 Tablet 1 No current facility-administered medications for this visit. RECENT LABS/IMAGING: No results found for this or any previous visit (from the past 672 hour(s)). VITALS There were no vitals filed for this visit. Wt Readings from Last 3 Encounters: 11/14/16 69.6 kg (153 lb 6.4 oz) 09/07/16 65.3 kg (144 lb) 08/23/16 64.7 kg (142 lb 9.6 oz) There is no height or weight on file to calculate BMI. CURRENT MEDICATIONS: Current Outpatient Medications Medication Sig Dispense Refill clonazePAM 1 MG Oral Tablet (KlonoPIN) Take 1 Tablet by mouth daily as needed for Anxiety. 30 Tablet 1 PARoxetine HCl 10 MG Oral Tablet (Paxil) Take 1 Tablet by mouth in the morning. 30 Tablet 1 Zolpidem Tartrate 5 MG Oral Tablet (Ambien) Take 1 Tablet by mouth at bedtime as needed for Sleep. 30 Tablet 1 No current facility-administered medications for this visit. FAMILY HISTORY: Family History Problem Relation Age of Onset No Past Hx Father No Past Hx Mother No Past Hx Sister PAST MEDICAL HISTORY: No past medical history on file. SUMMARY OF/CHANGES TO PAST PSYCHIATRIC, MEDICAL, FAMILY, OR SOCIAL HISTORY: See interval history MEDICAL REVIEW OF SYSTEMS: Constitutional: (-) fever chills sweats or weight loss Eyes: (-) negative, no amaurosis fugax, pain, blurred vision, or redness Cardiovascular: (-) negative: no chest pain, dyspnea, syncope, or palpitations Pulmonary: (-) negative: no cough, wheezing, or shortness of breath Abdominal/GI: (-) negative: no pain, heartburn, dysphagia, bleeding, change in bowel habits, nauseaor vomiting Musculoskeletal: (-) negative: no pain Endocrine: (-) negative: no weight change, heat or cold intolerance, polyuria Skin: (-) negative: no rash or new or changing moles Neurology: (-) negative: no focal neurologic defect MENTAL STATUS EVALUATION: Appearance: age-appropriate and casually dressed Muscle strength and tone: no abnormal involuntary movements noticeable Gait and Station: not assessed, patient seen via teleconference Behavior: cooperative Speech: normal, rate, tone and volume Mood: anxious Affect: type - anxious; range - constricted; lability - no Associations: intact Thought Process: goal directed and logical Abstract Reasoning: intact Thought Content: denies suicidal ideations, homicidal ideations, auditory hallucinations, visual hallucinations, delusions, impulsivity to act out or preoccupation with violence Orientation: alert and oriented to person, place, time and situation Attention span/concentration as evidenced by: ability to sustain attention to examiner - intact Insight: fair Judgment: fair ASSESSMENT AND PLAN: Diagnosis: The primary encounter diagnosis was PTSD (post-traumatic stress disorder). Diagnoses of Depressive disorder and JOSE D (generalized anxiety disorder) were also pertinent to this visit. Neelam Jara is a 28 year old female patient with a history of JOSE D, MDD, PTSD, ADHD, alcohol use disorder who presents for an evaluation. She is currently unemployed. She meets criteria for theabove. Paxil 10mg daily, consider increasing Can change Klonopin to 1.5mg BID PRN Ambien 5mg qhs prn sleep Can restart Adderall 10mg BID for ADHD PDMP reviewed Neelam Jara Was assessed for potential risk of misuse, abuse, or addiction based on family and social history obtained by me, the prescribing psychiatrist. Neelam Jara has been educated on the potential adverse effects of stimulants, include the risk of misuse, abuse, and addiction. Additional potential adverse effects described to the patient include insomnia, headaches, exacerbation of tics, nervousness, irritability, overstimulation, termor, dizziness, anorexia, nausea, dry mouth, constipation, diarrhea, weight loss, and sexual dysfunctionlong term (impotence and libido changes). Life threatening and dangerous potential adverse effects described to the patient include psychotic episodes, seizures, palpitations, tachycardia, hypertension, activation of hypo/gary or suicidal ideation, and cardiovascular effects including sudden deathin patients with preexisting structural abnormalities. Neelam Jara has tolerated this medication in the past and has had a positive clinical response to this medication. Treatment options and alternatives reviewed with patient who agrees with the above plan. Information about current medications was provided to the patient including reasons why medications are being used. Patient understood the risks, benefits, side-effects, and potential complications associated with changes in medications being proposed (both medications being started, and medications being discontinued or having dose changed). Patient is making an informed medical decision to follow the recommendations outlined in this note. Directed pt to call with any questions or concerns, worsening symptoms and/or ask for earlier appointment. Greater than 50% of the time was spent counseling or coordinating the care of the patient Risk assessment was performed. This is a patient being treated for chronic mental health conditionsand/or substance use disorder as characterized above; at the time of this visit, there was no indication that this patient was either a risk to self, others, or gravely disabled by symptoms of a mental illness or substance use disorder. At the time of this evaluation, pt did not appear to be an acute risk to self or others, there were enough protective factors in place, and it was deemed safe andappropriate to continue with treatment on an outpatient basis with return to clinic in the timeframe described above. We reviewed previous crisis plan should he/she experience worsening of symptoms before next follow-up appointment, including being aware of what resources to use according to the urgency and severityof symptoms. Neelam Jara was able to verbalize understanding of the steps necessary to obtain help between appointments should be needed, from requesting a phone call, to requesting an appointment sooner, including reaching clinic after hours, accessing our system, and accessing emergency mental health and medical services, either at a local emergency department or by activating mobile crisis teams andEMS. Time Spent on Visit: 30 minutes Billing code: [id number] Kj Trent MD Psychiatrist, [facility] 01/02/2024 documented in this encounter Miscellaneous Notes * Addendum Note - Kj Trent MD - 01/02/2024 3:56 PM EDTAddended by: KJ TRENT on: 01/02/2024 03:56 PM Modules accepted: Orders documented in this encounter Plan of Treatment Upcoming Encounters Date Type Department Care Team (Late st Contact Info) Description 01/30/2024 10:30 AM EDT [facility] [address] [place] [address] Kj Trent MD [address] [place] [address] Health Maintenance Due Date Last Done Comments Hepatitis B (3 of 3 - 19+ 3-dose series) 02/21/2017 09/22/2016, 08/23/2016 Pap Smear 2017 COVID-19 Vaccine (2022-2 4 season) 2023 Influenza Vaccine (FLU shot) (Season Ended) 2024 06/18/2022 DTaP,Tdap,and Td Vaccines (3 - Td or Tdap) 08/23/2026 08/23/2016, 05/19/2009 Gonorrhea / Chlamydia Screen Discontinued , 07/14/2015 GARDASIL-HPV IMMUNIZATION SERIES Aged Out No longer [...] as of this encounter Visit Diagnoses Diagnosis PTSD (post-traumatic stress disorder)- Primary Posttraumatic stress disorder Depressive disorder Depressive disorder, not elsewhere classified JOSE D (generalized anxiety disorder) Generalized anxiety disorder ADHD, predominantly inattentive type Attention deficit disorder without mention of hyperactivity documented in this encounter Care Teams Dryer Operator Relationship Specialty Start Date End Date Sunni Hoff MD PCP - General Internal Medicine 06/16/16 documented as of this encounter
--- OUTSIDE RECORDS SUMMARY | 2024-01-06 16:41 | External Medical Summary | Summary of Care ---
Author Name Unknown Organization [facility] Address [address] [place] [address] Phone [phone] Care Team Providers Care Duplicate Maker Name Role Phone Sunni Hoff MD Primary Care Provider [phone] Reason for Visit * - Authorized Specialty Diagnoses / Procedures Referred By Julio jensen Referred To Contact Referral ID Status Reason Start Date Expiration Date V isits Requested Visits Authorized [id number] Authorized 07/19/2023 07/17/[phone] Encounter Details Date Type Department Care Team (Latest Contact Info) Description 01/02/2024 12:30 PM EDT [facility] [address] [place] [address] Kj Dias MD [address], [place] [id number] PTSD (post-traumatic stress disorder)*; Depressive disorder; JOSE [...] for Sleep. 30 Tablet 1 12/05/2023 Active clonazePAM 1 MG Oral Tablet (KlonoPIN) Take 1 Tablet by mouth 2 times a day as needed for Anxiety. 60 Tablet 1 01/02/2024 Active clonazePAM 0.5 MG Oral Tablet (KlonoPIN) Take 1 Tablet by mouth 2 times a day as needed for Anxiety. Take with 1mg tablets 60 Tablet 1 01/02/2024 Active Amphetamine-Dextr oamphetamine 10 MG Oral Tablet (Adderall) Take 1 tab in the morning and 1 tab in the early afternoon 60 Tablet 0 01/02/2024 Active Ondansetron HCl 4 MG Oral Tablet Take 1 Tablet by mouth daily as needed for Nausea. 30 Tablet 1 01/02/2024 Active clonazePAM 1 MG Oral Tablet (KlonoPIN) Take 1 Tablet by mouth daily as needed for Anxiety. 30 Tablet 1 12/05/2023 01/02/2024 Discontinued (Refill) documented as of this encounter (statuses as of 01/02/2024) Active Problems Problem Noted Date Diagnosed Date MDD (major depressive disord er), recurrent episode, moderate 07/27/2023 History of alcohol abuse 07/27/2023 PTSD (post-traumatic stress disorder) 07/27/2023 Other mixed anxiety disorders 09/07/2016 Intermittent palpitations 09/07/2016 General counseling and advice for contraceptive management 08/23/2016 Overview: [employer] Randee[facility] Celiac disease 06/16/2016 Overview: diag with [...] of this encounter Progress Notes * Kj Dias MD - 01/02/2024 12:37 PM EDT OUTPATIENT PSYCHIATRY RETURN VISIT DIVISION OF PSYCHIATRY [place] [address] Name: Neelam Jara : 1995 Date and Time Patient was Seen: 01/02/2024 at 12:37 PM After connecting through [employer], patient was verified with two unique identifiers. Patient (or authorized legal sales representative facility services) was then informed that this was a [...] that I have reviewed their record in [facility] and presented the opportunity for them to [...] Time: 1230 Stop Time: 1250 Total direct [id number] time: 20 minutes Patient location: HOME. I was not in a hospital or clinic location. After connecting through televideo, patient was verified with two unique identifiers. Patient (or authorized legal sales representative facility services) was then informed that this was a [...] Spent on Visit: 30 minutes Billing code: [id number] Kj Dias MD Psychiatrist, [facility] 01/02/2024 documented in this encounter Plan of Treatment Upcoming Encounters Date Type Department Care Team (Late st Contact Info) Description 01/30/2024 10:30 AM EDT [facility] [address] [place] [address] Kj Dias MD [address] [place] [address] Health Maintenance Due Date Last Done Comments [...] hyperactivity documented in this encounter Care Teams Duplicate Maker Relationship Specialty Start Date End Date Sunni Hoff MD PCP - General Internal Medicine 06/16/16 documented as of this encounter
--- OUTSIDE RECORDS SUMMARY | 2024-01-06 16:42 | External Medical Summary | Summary of Care ---
Author Name Unknown Organization [facility] Address [address] [place] [address] Phone [phone] Care Team Providers Care Hostess Party Sales Representative Name Role Phone Sunni Hoff MD Primary Care Provider [phone] Reason for Visit * Reason Onset Date Comments Leather Patcher Documentation 11/24/2023 AC P and MHAD mailing Encounter Details Date Type Department Care Team (Late st Contact Info) Description 11/24/2023 Telephone Care Management, [place] [address] [place] [address] Jaja Stanford, RECLAIMER Leather Patcher Documentation (ACP and MHA... Allergies Active Allergy Reactions Criticality Noted Date Comments Gluten Meal 11/18/2015 gluten documented as of this encounter (statuses as of 11/24/2023) Medications Medication Sig Dispensed Refills Start Date End Date Status Methylcobalamin (G13-[id number]) 1 MG CHEWIndications:Low serum vitamin B12 one [...] for Sleep. 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 Never true 12/13/20 23 Within the past 12 months, t he food you bought just didn't last and you didn't have money to get more. Never true 08/30/2023 Sex and Gender Information Value Date Recorded Sex Assigned at Female 07/26/2023 1:02 PM EST Gender Identity Female 07/26/2023 1:02 PM EST Sexual Orientation Bisexual 07/26/2023 1: 02 PM EST documented as of this encounter Miscellaneous Notes * ACP (Advance Care Planning) - Jaja Stanford LCSW - 11/24/2023 8:54 AM EST Advance Care Planning Received request from Behavioral Health Charcoal Kiln Burner Amy Soto to mail ACP and Mental Health AD materials to . Waqas Ann Mariefranklin (with a specific request for "a living will"). The following materials with a cover letter inviting her to call me with questions was sent 11/23/23: Advance Care Planning booklet Choosing a Healthcare Agent card [employer] brochure and business card Combined Living Will & Health Care Power of Jewelry Casting Model Maker form Combined Mental Health Declaration and Power of Jewelry Casting Model Maker form FAQ about Mental Health directives Document instructions to provide completed documents to electronic health record Jaja [email or web address] Obstetrics Specialist General Email: [email or web address] General documented in this encounter Plan of Treatment Upcoming Encounters Date Type Department Care Team (Late st Contact Info) Description 12/05/2023 1:30 PM EDT [facility] [address] [place] [address] Kj Dias MD [address] [place] [address] Health Maintenance Due Date Last Done Comments Hepatitis B (3 of 3 - 19+ 3-dose series) 02/21/2017 09/22/2016, 08/23/2016 Pap Smear 2017 COVID-19 Vaccine ( - 2022-2 4 season) 2023 Influenza Vaccine (FLU shot) (#1) 2023 Depression Screening 11/14/2024 11/14/2023 DTaP,Tdap,and Td Vaccines (3 - Td or [...] Not on filedocumented as of this encounter Care Teams Hostess Party Sales Representative Relationship Specialty Start Date End Date Sunni Hoff MD PCP - General Internal Medicine 06/16/16 documented as of this encounter
--- OUTSIDE RECORDS SUMMARY | 2024-01-06 16:42 | External Medical Summary | Summary of Care ---
Author Name Unknown Organization [facility] Address [address] [place] [address] Phone [phone] Care Team Providers Care Elementary Education Teacher Name Role Phone Sunni Hoff MD Primary Care Provider [phone] Reason for Visit * Reason Onset Date Comments Film Color Tester Documentation 12/13/2023 AC P mailing f/u Encounter Details Date Type Department Care Team (Late st Contact Info) Description 12/13/2023 Telephone Care Management, [place] [address] [place] [address] Jaja Stanford, DISABILITY EXAMINER Film Color Tester Documentation (ACP mailing... Allergies Active Allergy Reactions Criticality Noted Date Comments Gluten Meal 11/18/2015 gluten Prazosin Hives 12/05/2023 documented as of this encounter (statuses as of 12/13/2023) Medications Medication Sig Dispensed Refills Start Date End Date Status clonazePAM 1 MG Oral Tablet (KlonoPIN) Take 1 Tablet by mouth daily as needed for Anxiety. 30 Tablet 1 12/05/2023 Active PARoxetine HCl 10 MG Oral Tablet (Paxil) Take 1 Tablet by mouth in the morning. 30 Tablet 1 12/05/2023 Active Zolpidem Tartrate 5 MG Oral Tablet (Ambien) Take 1 Tablet by mouth at bedtime as needed for Sleep. 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 Left voicemail with my number and encouraged contact when she's ready. Jaja Stanford LCSW [employer] Count Team Member Direct line: [phone] documented in this encounter Plan of Treatment Upcoming Encounters Date Type Department Care Team (Late st Contact Info) Description 01/02/2024 12:30 PM EDT Telemedicine [facility], [place] [address] [place] [address] Kj Dias MD [address] [place] [address] Health Maintenance Due Date Last Done Comments Hepatitis B (3 of 3 - 19+ 3-dose series) 02/21/2017 09/22/2016, 08/23/2016 Pap Smear 2017 COVID-19 Vaccine ( - 2022-2 4 season) 2023 Influenza Vaccine (FLU shot) (#1) 2023 06/18/2022 Depression Screening 11/14/2024 11/14/2023 DTaP,Tdap,and Td Vaccines [...] filedocumented as of this encounter Care Teams Elementary Education Teacher Relationship Specialty Start Date End Date Sunni Hoff MD PCP - General Internal Medicine 06/16/16 documented as of this encounter
--- OUTSIDE RECORDS SUMMARY | 2024-01-06 16:42 | External Medical Summary | Summary of Care ---
Author Name Unknown Organization [facility] Address [address] [place] [address] Phone [phone] Care Team Providers Care Educational Program Assistant Name Role Phone Sunni Hoff MD Primary Care Provider [phone] Reason for Visit * Reason Onset Date Comments Left Message 07/27/2023 Med Request 07/27/2023 Encounter Details Date Type Department Care Team (Late st Contact Info) Description 07/27/2023 Telephone Psychiatry, [place] [address] [place] [address] Services, [facility] [address] [place] [address] Left Message; Med Request Allergies Active Allergy Reactions Criticality Noted Date Comments Gluten Meal 11/18/2015 gluten documented as of this encounter (statuses as of 10/26/2023) Medications Medication Sig Dispensed Refills Start Date End Date Status Methylcobalamin (C93-[id number]) 1 MG CHEWIndications:Low serum vitamin B12 one pill each day--pt started 09/03/16 0 09/07/2016 Active NUVARING 0.12-0.015 MG/24HR vaginal ring As directed 0 11/01/2016 Act coreen vitamin b 12 ([facility] VITAMIN B-12) 1000 MCG TABSIndications:Low serum vitamin B12 Take 1 Tab by mouth daily. 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 off [facility] and will [facility] soon Celiac disease 06/16/2016 Overview: diag with labs 06/2015 at [facility] Chronic left hip pain 06/16/2016 Overview: Fu pain mgmt [facility] and ortho documented as of this encounter (statuses as of 10/26/2023) Immunizations Name Administration Dates Next Due DT [...] Answer Date Recorded PHQ Adult Total Score 11 10/12/2023 Hunger Vital Sign Answer Date Recorded Within [...] as of this encounter Miscellaneous Notes * Telephone Encounter - Imelda Castañeda OSA - 07/27/2023 1:16 PM EST Good afternoon, Pt called stated she went to Pharmacy just now to pick her medications, Venlafaxine, Seroquel and Ambien that provider sent to [facility]. Per pt still not there. Please advise. Thank you documented in this encounter Plan of Treatment Upcoming Encounters Date Type Department Care Team (Late st Contact Info) Description 12/05/2023 1:30 PM EDT Telemedicine Psychiatry, [place] [address] [place] [address] Kj Dias MD [address] [place] [address] Health Maintenance Due Date Last Done Comments COVID-19 Vaccine (#1) 1996 Hepatitis B (3 of 3 - 19+ 3-dose series) 02/21/2017 09/22/2016, 08/23/2016 Pap Smear 2017 Influenza Vaccine (FLU shot) (#1) 2023 Depression, Most Recent Scor e >= 10 (will fire each visit until score < 10) 10/13/2023 10/12/2023 DTaP,Tdap,and Td Vaccines (3 - Td or [...] filedocumented as of this encounter Care Teams Educational Program Assistant Relationship Specialty Start Date End Date Sunni Hoff MD PCP - General Internal Medicine 06/16/16 documented as of this encounter
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
[2024-01-06] MEDS: clonazePAM 1 MG TAB PO PRN (18:13)
[2024-01-06] MEDS: cefTRIAXone SODIUM 2,000 MG in DEXTROSE 5 % MINI-B 50 ML IV SCH (20:57)
[2024-01-06] MEDS: ZOLPIDEM TARTRATE 5 MG TAB PO PRN (21:32)
--- NOTE | 2024-01-07 05:35 | Billing Data ---
Date of Service January 07, 2024 Coding Level of Care Code 27956 INT INP/OBS CARE
[2024-01-07 06:23] LABS: Basophils # (auto) 0.04 K/uL (0.00-0.20); Basophils % (auto) 0.8 %; Eosinophils # (auto) 0.25 K/uL (0.00-0.50); Eosinophils % (auto) 5.1 %; Hemoglobin 11.1 g/dl (12.0-16.0); Immature Granulocytes # (auto) 0.01 K/uL (0.01-0.20); Immature Granulocytes % (auto) 0.2 %; Lymphocytes # (auto) 2.26 K/uL (1.20-3.40); Lymphocytes % (auto) 46.3 %; Mean Corpuscular Hemoglobin 32.8 pg (25.0-34.0); Mean Corpuscular Hgb Conc 35.8 g/dL (32.0-36.0); Mean Corpuscular Volume 91.7 fL (80.0-100.0); Monocytes # (auto) 0.41 K/uL (0.11-0.59); Monocytes % (auto) 8.4 %; Neutrophils # (auto) 1.91 K/uL (1.40-6.50); Neutrophils % (auto) 39.2 %; Platelet Count 122 K/uL (130-400); RDW Coefficient of Variation 14.9 % (11.5-14.5); RDW Standard Deviation 49.3 fL (36.4-46.3); Red Blood Count 3.38 M/uL (4.20-5.40); White Blood Count 4.88 K/ul (4.8-10.8)
[2024-01-07 06:43] LABS: Albumin Globulin Ratio 1.3 (0.9-2); Albumin Level 3.6 gm/dl (3.4-5.0); BUN Creatinine Ratio 10.7 (10-20); Bilirubin,Total 1.8 mg/dl (0.2-1.0); Creatinine Clr Calc Pharmacy 160.1 ml/min; Est GFR (African American) 148.1 ml/min; Est GFR (Non-African American) 127.8 ml/min; Globulin 2.7 gm/dl (2.5-4.0); Potassium 3.3 mmol/L (3.5-5.1); Total Protein 6.3 gm/dl (6.0-8.3)
--- NOTE | 2024-01-07 08:07 | Hospitalist Progress Note ---
Date of Service January 07, 2024 Assessment & Plan (1) Right upper quadrant abdominal pain: Plan: - (2) Hyperbilirubinemia: (3) Jaundice: (4) H/O attention deficit hyperactivity disorder: (5) UTI (urinary tract infection): (6) Avascular necrosis of bones of both hips: (7) Post traumatic stress disorder (PTSD): (8) Elevated LFTs: Plan Pt is a 28 yo female with a past medical history of PTSD, anxiety, insomnia, ADHD, HTN, avascular necrosis of hips, and hx of MALS who presents to the hospital on 01/04 for nausea, vomiting, abdominal pain. Bilirubin and transaminitis both trending down. Pain still is present on RUQ and epigastric. NPO at midnight for possible ERCP in the morning. Will increase Dilaudid to 1 mg. Will continue to advanced diet as tolerated. #Right upper quadrant abdominal pain #Transaminitis, improved #Hyperbilirubinemia, improved -Patient presented to the hospital with right upper quadrant abdominal pain and jaundice -Elevated total bilirubin of 5.8, 1.1 direct bilirubin. Elevated AST of 243, ALT of 78, alk phos of 150 -Lipase low at 4. CBC and PT/INR benign -Previous history of alcohol abuse, last drink was in March 2023 -Right upper quadrant ultrasound showed stable fatty liver, otherwise unremarkable. Abdominal pelvis CTA negative. 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 -Toxicology negative for salicylates and alcohol. Positive for amphetamines and marijuana. -Patient has recently been started on Adderall for ADHD, which is held during admission -Consulted GI: started pantoprazole, continue famotidine. Possible ERCP -Hepatitis panel pending #UTI -UA suggestive of infection. -Urine cultures : E.coli - IV Ceftriaxone 2 g every 24 hours #PTSD #Anxiety - Previous overdose with home Ambien and Seroquel noted - restarted clonazepam as 1 mg BID prn here - restarted home Ambien tonight - restarted home paroxetine #HTN - hold home lisinopril and metoprolol as pressures here good the past 24 hours without #Avascular necrosis of bones of both hips, stable -Normal pelvis CTA showed stable avascular necrosis of the femoral heads without articular surface collapse. -Stable at this time IVF: LR 80 mL/hr for 2 bags Admission and Anticipated Discharge Date Admission Date: January 05, 2024 Supervising Physician Co-Signing Physician Notes ATTESTATION I also saw the patient and confirmed serna portions of the history and exam. I also discussed the case with the gastroenterology automobile sales consultant. I agree with the impression and plan in the resident documentation, and as summarized below. She had episode of emesis this morning with food. Describes the pain as 8/10 at present; some but not significant improvement with Dilaudid 0.5 mg. EXAM 112/68, 53, 18, afebrile Jaundice is resolving Heart regular rate and rhythm Respirations are nonlabored; lungs are clear Abdomen is soft, nontender except with some discomfort with firm palpation in the right mid to right upper quadrant. DATA Labs Hemoglobin 11.1 Potassium 3.3 Total bilirubin 1.8, down from 5.8 upon admission AST 126, ALT 61, alkaline phosphatase 123 -all three parameters downtrending Imaging Ultrasound of the liver completed 01/05/2024 shows stable fatty liver, no cholelithiasis, acute cholecystitis or other acute abnormality. Chest x-ray completed 01/05/[address]24 shows [address] CT scan of the abdomen and pelvis completed 01/05/2024 shows no acute findings. 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 Micro Urine culture collected 01/05/2024 shows gallegos sensitive E. coli IMPRESSION & PLAN UTI (E. coli) Right upper quadrant abdominal pain Indirect hyperbilirubinemia with jaundice and transaminitis, AST greater than ALT Hypokalemia Change Dilaudid to 1 mg every 4 hours as needed pain Make n.p.o. after night in case of EGD tomorrow Continue PPI and H2 ozzy Zofran as needed nausea Continue home medications Appreciate GI consultation Rocephin for UTI Replete potassium Additional per resident documentation Subjective Pt is a 28 yo female with a past medical history of PTSD, anxiety, insomnia, ADHD, HTN, avascular necrosis of hips, and hx of MALS who presents to the hospital on 01/04 for nausea, vomiting, abdominal pain. Today in the morning patient had an emesis after breakfast. She still complains of abdominal pain 8/10. Pain is responding to Dilaudid but only for a transient time. No tolerating PO. No other complains. Review of Systems Review of Systems: Per HPI. Physical Exam Physical Exam: General:Alert and oriented, no acute distress, HEENT: Normocephalic, moist oral mucosa, Cardio: Regular rate and rhythm, no murmur, Resp:Lungs clear to auscultation b/l, no wheezes or rhonchi, GI: Soft, nondistended, bowel sounds active, tenderness noted RUQ and epigastric areas. No rebound, no guarding. Skin: Warm, dry, mild Jaundice Results & Data Results & Data Vital Signs (Past 12 Hours) Vital Signs Temp Pulse Resp BP Pulse Ox O2 Del Method 01/07/24 07:50 36.7 C 61 18 120/80 100 Room Air 01/07/24 06:44 36.4 C L 63 18 120/84 97 Room Air Resident Activity Tracking Resident Involvement: Resident Care Provided Care Provided: Adult Hospital Medicine
[2024-01-07] MEDS: HYDROmorphone INJ 0.5 MG/0.5 ML SYR IV STA (09:55)
[2024-01-07] MEDS: POTASSIUM CHLORIDE / WTR 10 MEQ/100 ML PLCT IV SCH (09:59)
[2024-01-07] MEDS ORDERED: IBUPROFEN 200 MG TAB PO PRN (10:06)
[2024-01-07] MEDS: PANTOprazole 40 MG in SYRINGE 0 ML IV SCH (10:40)
[2024-01-07] MEDS: FAMOTIDINE 20MG IV PUSH 20 MG/5 ML SYR IV SCH (10:45)
[2024-01-07] MEDS ORDERED: HYDROmorphone INJ 0.5 MG/0.5 ML SYR IV PRN (12:34)
[2024-01-07] MEDS: HYDROmorphone INJ 1 MG/ML SYRINGE IV PRN (13:25)
--- NOTE | 2024-01-07 16:15 | Gastroenterology Progress Note ---
Date of Service January 07, 2024 Assessment & Plan (1) Elevated LFTs: Plan: Numbers significantly improved overnight She may have passed a stone, though no evidence of Biliary ductal dilation on imaging Continue to monitor liver panel until it normalizes Ceruloplasmin pending (2) Right upper quadrant abdominal pain: Plan: NPO after midnight EGD in AM Admission and Anticipated Discharge Date Admission Date: January 05, 2024 Subjective Still with significant RUQ abdominal pain and nausea, though denies any vomiting, hematemesis, melena, or hematochezia. She states that she feels better since her Dilaudid has been increased. States she is still taking antiemetic therapy. States that she cannot eat anything, and only wants liquid therapy. She denies any further complaints. Review of Systems Review of Systems: All systems reviewed & are unremarkable except as noted in Subjective Physical Exam Constitutional: WD/WN, vitals as above Respiratory: normal respiratory effort, lungs clear to auscultation Cardiovascular: RRR, no murmur, no edema Gastrointestinal (Abdomen): Inspection/Auscultation: normal bowel sounds; abdomen not distended Percussion/Palpation: + abdomen tender and abdomen soft; no guarding, abdomen not rigid and no hepatosplenomegaly Skin: no rashes, warm and dry Psychiatric: A+Ox3, euthymic affect Results & Data Results & Data Vital Signs (Past 12 Hours) Vital Signs Temp Pulse Resp BP Pulse Ox O2 Del Method 01/07/24 15:37 36.5 C 53 L 18 112/68 99 Room Air 01/07/24 07:50 36.7 C 61 18 120/80 100 Room Air 01/07/24 06:44 36.4 C L 63 18 120/84 97 Room Air PG Care Time/CCT Total # of Minutes Spent Total Time Spent with Patient: Total time spent is greater than 50% in coordination of care (as documented) at patient's floor/unit and/or counseling patient: Coding Level of Care Code 79329 SUB INP/OBS CARE 3/50MIN Diagnoses Elevated LFTs R79.89 Right upper quadrant abdominal pain R10.11
[2024-01-07 19:46] LABS: HBSAG NON-REACTIVE (NON-REACTIVE); Hepatitis A Antibody IgM NON-REACTIVE (NON-REACTIVE); Hepatitis B Core Antibody IgM NON-REACTIVE (NON-REACTIVE)
--- NOTE | 2024-01-07 22:03 | Electrocardiogram Report ---
Test Reason : Blood Pressure : / mmHG Vent. Rate : 064 BPM Atrial Rate : 064 BPM P-R Int : 144 ms QRS Dur : 086 ms QT Int : 408 ms P-R-T Axes : 025 050 036 degrees QTc Int : 420 ms Normal sinus rhythm Normal ECG When compared with ECG of 05-JAN-2024 17:33, No significant change Confirmed by Octavio Falcon ([id number]) on 01/07/2024 10:03:10 PM Referred By: REFERRED SELF Confirmed By:Octavio Falcon
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
[2024-01-08 09:46] LABS: Basophils # (auto) 0.03 K/uL (0.00-0.20); Basophils % (auto) 0.7 %; Eosinophils # (auto) 0.28 K/uL (0.00-0.50); Eosinophils % (auto) 6.1 %; Hemoglobin 11.2 g/dl (12.0-16.0); Immature Granulocytes # (auto) 0.02 K/uL (0.01-0.20); Immature Granulocytes % (auto) 0.4 %; Lymphocytes # (auto) 1.94 K/uL (1.20-3.40); Lymphocytes % (auto) 42.5 %; Mean Corpuscular Hemoglobin 32.7 pg (25.0-34.0); Mean Corpuscular Volume 93.3 fL (80.0-100.0); Mean Platelet Volume 9.8 fL (9.4-12.4); Monocytes # (auto) 0.37 K/uL (0.11-0.59); Monocytes % (auto) 8.1 %; Neutrophils # (auto) 1.92 K/uL (1.40-6.50); Neutrophils % (auto) 42.2 %; Platelet Count 143 K/uL (130-400); RDW Coefficient of Variation 15.4 % (11.5-14.5); RDW Standard Deviation 51.8 fL (36.4-46.3); Red Blood Count 3.43 M/uL (4.20-5.40); White Blood Count 4.56 K/ul (4.8-10.8)
[2024-01-08 10:04] LABS: Albumin Globulin Ratio 1.3 (0.9-2); Albumin Level 3.7 gm/dl (3.4-5.0); BUN Creatinine Ratio 4.7 (10-20); Bilirubin,Total 1.1 mg/dl (0.2-1.0); Calcium 9.1 mg/dl (8.6-10.3); Creatinine Clr Calc Pharmacy 140.1 ml/min; Est GFR (African American) 141.7 ml/min; Est GFR (Non-African American) 122.3 ml/min; Globulin 2.9 gm/dl (2.5-4.0); Potassium 3.2 mmol/L (3.5-5.1); Total Protein 6.6 gm/dl (6.0-8.3)
--- NOTE | 2024-01-08 10:11 | History & Physical Bridge Note ---
Date of Service January 08, 2024 History & Physical Bridge Note I have examined the patient, reviewed the History & Physical and in the interval since the performance of the History & Physical I have noted the following changes of clinical significance: no changes noted Patient denies any new problems. She notes that she is having 9/10 pain. She is NPO. Keep NPO. Proceed with EGD today. Supervising Physician Co-Signing Physician Notes Agree with ROSS Anthony as above Abd: Soft, Tender, ND, +BS Continue current therapy and supportive care Proceed with EGD now.
--- NOTE | 2024-01-08 10:43 | Anesthesiology Consultation ---
Date of Service January 08, 2024 Assessment & Plan (1) Encounter for pre-operative examination: Chart Review Chart Review: Acceptable Risk for Surgery, Patient NOT seen in Pre Admission Testing and administrative assistant data entry initiated Consults Requested none Proposed Anesthesia Anesthesia Type: MAC History Surgery Operation Date: 01/08/24 16:30 Proposed Procedures p Esophagogastroduodenoscopy Dr Sihelds - Romeo Sanchez Case, DO Height/Weight Height: 5 ft 10 in Weight: 67.2 kg Allergies Allergy/AdvReac Type Severity Reaction Status Date / Time gluten Allergy Intermediate CELIAC Verified 01/05/24 19:56 DISEASE Medications Home Medications Medication Instructions Recorded Confirmed Last Taken metoprolol succinate 50 mg 50 mg PO QAM #90 tabs 09/28/23 01/05/24 01/05/24 tablet,extended release 24 hr lorazepam 0.5 mg tablet (Ativan) 0.5 mg PO DAILY PRN anxiety #20 12/14/23 01/05/24 Unknown tabs clonazepam 0.5 mg tablet 0.5 mg PO BID PRN Anxiety 01/05/24 01/05/24 Unknown clonazepam 1 mg tablet 1 mg PO BID PRN Anxiety 01/05/24 01/05/24 Unknown dextroamphetamine-amphetamine 10 10 mg PO BID 01/05/24 01/05/24 01/05/24 08:00 mg tablet lisinopril 40 mg tablet 40 mg PO DAILY 01/05/24 01/05/24 01/05/24 ondansetron HCl 4 mg tablet 4 mg PO DAILY PRN NAUSEA/VOMITING 01/05/24 01/05/24 01/05/24 paroxetine HCl 10 mg tablet 10 mg PO QAM 01/05/24 01/05/24 01/05/24 zolpidem 5 mg tablet 5 mg PO HS PRN Sleep 01/05/24 01/05/24 Unknown Active Medications Generic Name Dose Route Start Last Admin Trade Name Freq PRN Reason Stop Dose Admin Clonazepam 1 mg 01/06/24 11:53 01/08/24 03:50 Clonazepam 1 Mg Tab PO 02/05/24 11:52 1 mg BID PRN Administration Anxiety/Insomnia Hydromorphone HCl 1 mg 01/07/24 12:37 01/08/24 09:51 Hydromorphone Inj 1 Mg/Ml Syringe IV 01/21/24 12:36 1 mg Q4H PRN Administration Severe pain Ceftriaxone Sodium 2,000 mg/ 50 mls @ 100 mls/hr 01/06/24 21:00 01/07/24 22:03 Dextrose IV 01/16/24 20:59 Infused Q24H BALDOMERO Infusion Protocol Pantoprazole Sodium 40 mg/ 10 mls @ 5 mls/min 01/07/24 09:15 01/08/24 07:46 Syringe IV 02/06/24 09:14 5 mls/min DAILY BALDOMERO Administration Famotidine 20 mg in 5 mls @ 2.5 mls/min 01/07/24 09:30 01/08/24 08:22 Pepcid 20mg Iv Push IV 02/06/24 09:29 2.5 mls/min Q12H BALDOMERO Administration Ondansetron HCl 4 mg 01/05/24 22:12 01/08/24 06:13 Ondansetron Inj 2 Mg/Ml 2 Ml Vial IV 02/04/24 22:11 4 mg Q6H PRN Administration Nausea Paroxetine HCl 10 mg 01/06/24 10:15 01/08/24 07:45 Paroxetine Hcl 10 Mg Tab PO 02/05/24 10:14 10 mg QAM BALDOMERO Administration Zolpidem Tartrate 5 mg 01/06/24 11:53 01/07/24 21:33 Zolpidem Tartrate 5 Mg Tab PO 02/05/24 11:52 5 mg HS PRN Administration Sleep NPO Date Last Intake of Fluids: 01/07/24 Time Last Intake of Fluids: 23:59 Last Intake of Fluids Comment: allowed sips Date Last Intake of Solids: 01/07/24 Time Last Intake of Solids: 23:59 Past Medical History Medical History (Updated 01/08/24 @ 10:45 by Manjit Valladares MD) Encounter for pre-operative examination HTN (hypertension), benign Alcohol use disorder Social History Smoking Status: Never smoker Do You Dip or Chew Tobacco: No Hx Alcohol Use: Yes Alcohol type: hard liquor and other alcohol intake frequency: a few times a week Alcohol Intake Frequency Comment: Hard Cider, Hard Equinunk. Hx Substance Use: Yes substance use type: marijuana Last Used Substance: Unknown Last Used Substance Other:: pt denying any illicit drugs Physical Exam Vital Signs Last Vital Signs Temp 36.8 C 01/08/24 07:30 Pulse 57 L 01/08/24 07:30 Resp 16 01/08/24 07:30 BP 137/92 01/08/24 07:30 Pulse Ox 99 01/08/24 07:30 O2 Del Method Room Air 01/08/24 07:30 Testing Laboratory Results 01/08/24 09:18 01/08/24 09:18 PT 11.5 Seconds (9.0-12.0) 01/06/24 06:48 INR 1.1 (0.9-1.1) 01/06/24 06:48 APTT 26 Seconds (21-31) 01/06/24 06:48 Urine Color Dark Yellow 01/05/24 Unknown Urine Appearance Clear (Clear) 01/05/24 Unknown Urine pH 6.5 (4.5-7.5) 01/05/24 Unknown Ur Specific Childs 1.005 (1.000-1.030) 01/05/24 Unknown Urine Protein Negative (Negative) 01/05/24 Unknown Urine Glucose (UA) Negative (Negative) 01/05/24 Unknown Urine Ketones Trace (Negative) H 01/05/24 Unknown Urine Nitrite Negative (Negative) 01/05/24 Unknown Ur Leukocyte Esterase 3+ (Negative) H 01/05/24 Unknown Urine WBC (Auto) 21-50 /hpf (0-5) H 01/05/24 Unknown Urine RBC (Auto) 3-5 /hpf (0-2) H 01/05/24 Unknown U Hyaline Cast (Auto) 0-2 /lpf (0-2) 01/05/24 Unknown U Epithel Cells (Auto) 0-2 /hpf (0-2) 01/05/24 Unknown Urine Bacteria (Auto) 4+ (None Seen) H 01/05/24 Unknown 01/05/24 Unknown Urine Culture - Final Urine,Clean Catch Escherichia coli Electrocardiogram Date: 01/05/24 Test Reason : Blood Pressure : / mmHG Vent. Rate : 064 BPM Atrial Rate : 064 BPM P-R Int : 144 ms QRS Dur : 086 ms QT Int : 408 ms P-R-T Axes : 025 050 036 degrees QTc Int : 420 ms Normal sinus rhythm Normal ECG When compared with ECG of 05-JAN-2024 17:33, No significant change Chest X-Ray Date: 01/05/24 XR chest 1V not portable HISTORY: 28 years-old Female RUQ pain acute chest and upper abdominal pain COMPARISON: 01/31/2014 TECHNIQUE: PA view of the chest FINDINGS: Cardiomediastinal and hilar silhouettes are within normal limits. No pneumothorax, pleural effusion, airspace consolidation or pulmonary edema. Bones appear grossly intact. IMPRESSION: No acute process. Echocardiogram Date: 08/02/23 LV Function: normal Normal exam
--- NOTE | 2024-01-08 12:57 | GI REPORT ---
Addendum Number: 1 Addendum Date: 01/12/2024 11:00:33 AM Error noted in prior documentation, as she did not have an esophageal stricture and did not have esophageal dilation or esophageal biopsies. She did have gastric antrum and duodenal biopsies. Romeo Shields DO 01/12/2024 11:01:48 AM This report has been signed electronically. Patient Name: Neelam Gallegos Procedure Date: 01/08/2024 11:50 AM Date of : 1995 Admit Type: Inpatient Age: 28 Gender: Female Attending MD: Romeo Shields DO, Procedure: Upper GI endoscopy Providers: Romeo Shileds DO Referring MD: Lulu Beltre MD, Kj Shelton Indications: Epigastric abdominal pain, Nausea Medicines: Monitored Anesthesia Care Complications: No immediate complications. Estimated Blood Loss: Estimated blood loss: none. Estimated blood loss: none. Procedure: Pre-Anesthesia Assessment: - Prior to the procedure, a History and Physical was performed, and patient medications and allergies were reviewed. The patient's tolerance of previous anesthesia was also reviewed. The risks and benefits of the procedure and the sedation options and risks were discussed with the patient. All questions were answered, and informed consent was obtained. Prior Anticoagulants: The patient has taken no anticoagulant or antiplatelet agents. ASA Grade Assessment: II - A patient with mild systemic disease. After reviewing the risks and benefits, the patient was deemed in satisfactory condition to undergo the procedure. After obtaining informed consent, the endoscope was passed under direct vision. Throughout the procedure, the patient's blood pressure, pulse, and oxygen saturations were monitored continuously. The Endoscope was introduced through the mouth, and advanced to the third part of duodenum. The upper GI endoscopy was accomplished without difficulty. The patient tolerated the procedure well. Findings: The esophagus was normal. Localized mild inflammation characterized by erythema was found in the gastric antrum. Biopsies were taken with a cold forceps for histology. The examined duodenum was normal. Biopsies for histology were taken with a cold forceps for evaluation of celiac disease. Impression: - Benign-appearing esophageal stenosis. Dilated. Biopsied. - Small hiatal hernia. - Normal examined duodenum. Recommendation: - Return patient to [facility] care. - Advance diet as tolerated. - Continue present medications. - Return to primary care physician as previously scheduled. - No findings on this exam to explain patient's persistent need for narcotic analgesics. Would recommend repeat CT abd/pelvis with PO and IV contrast. Romeo Shields, DO 01/08/2024 12:56:55 PM This report has been signed electronically. Note Initiated On: 01/08/2024 11:50 AM Number of Addenda: 1 I attest to the content of the Intraoperative Record and orders documented therein, exceptions below {[id number]}
--- NOTE | 2024-01-08 13:10 | Anesthesiology Progress Note ---
Date of Service January 08, 2024 Anesthesia Post Procedure Vital Signs Vital Signs: Temp Pulse Resp BP Pulse Ox O2 Del Method 01/08/24 12:52 57 L 16 142/106 H 100 Room Air 01/08/24 12:37 53 L 10 L 114/70 95 Room Air 01/08/24 12:21 60 6 L 118/63 96 Room Air 01/08/24 11:08 36.4 C L 67 20 144/103 H 98 Room Air 01/08/24 07:30 36.8 C 57 L 16 137/92 99 Room Air 01/07/24 21:31 36.3 C L 66 16 126/83 100 Room Air 01/07/24 21:15 Room Air 01/07/24 15:37 36.5 C 53 L 18 112/68 99 Room Air Pain Intensity Upper Abdomen: Pain Intensity: 8 Transfer of Care Handoff Completed per policy Notes Mental Status: alert / awake / arousable and participated in evaluation Patient Amnestic to Procedure: Yes Nausea / Vomiting: adequately controlled Pain: adequately controlled Airway Patency, RR, SpO2: stable & adequate BP & HR: stable & adequate Hydration State: stable & adequate Anesthetic Complications: no major complications apparent
[2024-01-08 13:46] LABS: Amphetamine Urine, Confirm 2488 ng/mL (<250); Marijuana Quant, GCMS Urine 897 ng/mL (<5); Methamphetamine, Ur Confirm NEGATIVE ng/mL (<250)
[2024-01-08] MEDS: LACTATED RINGER'S 1,000 ML IV SCH (14:27)
[2024-01-08] MEDS: COUGH DROP (SUGAR FREE) LOZ 24 LOZ/1 BOX BUCCAL ONE (15:30)
[2024-01-08] MEDS: HYDROmorphone INJ 1 MG/ML SYRINGE IV STA ×2 (16:07→23:20)
--- NOTE | 2024-01-08 16:47 | Billing Data ---
Date of Service January 08, 2024 Coding Level of Care Code 87019 SUB INP/OBS CARE
[2024-01-08] MEDS: DICLOFENAC SOD 1% GEL 100 GM TUBE EXT SCH (18:10)
[2024-01-08] MEDS: lisinopril 40 MG TAB PO ONE (20:51)
[2024-01-08] MEDS: LACTATED RINGER'S 1,000 ML IV ONE (23:20)
[2024-01-08] MEDS: PROCHLORPERAZINE 5 MG in SYRINGE 4 ML IV ONE (23:20)
--- NOTE | 2024-01-08 23:43 | Communication Note ---
Date of Service: January 08, 2024 Notified by nursing of continued RUQ pain, dizziness, blurred vision. Blood pressure elevated 160s/100s. Home blood pressure medications on hold, gave home dose of lisinopril. Would consider restarting daily tomorrow. Got 1mg Dilaudid with minimal improvement in pain and Zofran with another episode of emesis afterwards. Neuro exam without focal neurological deficit- CN II-XII intact, strength 5/5 UE and LE B/L, PERRLA, EOMI. Notes dizziness is worse when standing up, denies room spinning- more lightheaded. Denies headache. Trouble focusing vision, but able to focus when she tries. Poor PO intake over the past 5 days; likely component of hypovolemia. Will give 1L LR bolus and continue maintenance fluids. Additional 1mg Dilaudid. Trial of Compazine for nausea.
[2024-01-09] MEDS: KETOROLAC TROMETHAMINE 15 MG/ML VIAL IV PRN (07:38)
[2024-01-09 08:14] LABS: Hematocrit (blood only) 31.5 % (37.0-47.0); Hemoglobin 11.1 g/dl (12.0-16.0); Mean Corpuscular Hemoglobin 33.3 pg (25.0-34.0); Mean Corpuscular Hgb Conc 35.2 g/dL (32.0-36.0); Mean Corpuscular Volume 94.6 fL (80.0-100.0); Mean Platelet Volume 9.5 fL (9.4-12.4); Platelet Count 156 K/uL (130-400); RDW Coefficient of Variation 15.1 % (11.5-14.5); RDW Standard Deviation 51.4 fL (36.4-46.3); Red Blood Count 3.33 M/uL (4.20-5.40); White Blood Count 3.92 K/ul (4.8-10.8)
[2024-01-09] MEDS: lisinopril 40 MG TAB PO SCH (08:18)
[2024-01-09] MEDS: METOPROLOL SUCC 50MG EXT REL TAB PO SCH (08:18)
[2024-01-09 08:34] LABS: Albumin Globulin Ratio 1.3 (0.9-2); Albumin Level 3.3 gm/dl (3.4-5.0); BUN Creatinine Ratio 3.3 (10-20); Bilirubin,Total 0.8 mg/dl (0.2-1.0); Calcium 8.9 mg/dl (8.6-10.3); Creatinine Clr Calc Pharmacy 149.4 ml/min; Est GFR (African American) 144.8 ml/min; Est GFR (Non-African American) 124.9 ml/min; Globulin 2.6 gm/dl (2.5-4.0); Potassium 3.5 mmol/L (3.5-5.1); Total Protein 5.9 gm/dl (6.0-8.3)
--- NOTE | 2024-01-09 10:07 | Hospitalist Progress Note ---
Date of Service January 09, 2024 Assessment & Plan (1) Elevated LFTs: (2) Hyperbilirubinemia: (3) Right upper quadrant abdominal pain: Plan Pt is a 28 yo female with a past medical history of PTSD, anxiety, insomnia, ADHD (recently started on medications), HTN, avascular necrosis of hips, and hx of MALS who presents to the hospital on 01/04 for nausea, vomiting, abdominal pain. Bilirubin normalized (0.8) and other LFTs also normal save for AST mildly elevated at 61 (improved from 94). Still referring pain over her bilateral upper abdominal quadrants more prominent over ribs which may be related to prolonged straining due to vomiting for the last few weeks. Also referring bilateral lower quadrant pain which may be a combination of her menstrual cramps with effects of strain over abdominal muscles due to vomiting. Hasn't tried to eat anything today despite starting scheduled Compazine which has improved her nausea. Encouraged patient to gradually re-introduce herself to food slowly until she gets back to her usual meals. If she keeps vomiting everything despite the antiemetics, will investigate further for alternate etiologies (gastroparesis, re-evaluate celiac artery/MALS, etc.). #N/V + Hypovolemia #Right upper quadrant abdominal pain #Transaminitis, improved #Hyperbilirubinemia, improved -Patient presented to the hospital with right upper quadrant abdominal pain, jaundice, and sclera icterus -Right upper quadrant ultrasound showed stable fatty liver, otherwise unremarkable. Abdominal pelvis CTA negative. 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 -Acute hepatitis panel negative -LFTs have essentially normalized and T.bili was normal as well at 0.8. -Last episode of vomiting was this morning, not again since then -BP normal but lightheaded with standing; Orthostatics positive; Likely due to hypovolemia from poor PO intake; NSS ordered -Still nauseous which may be due to combined effects of recent illness and her not having eaten anything for the last 5 days -Continue PPI, Pepcid, Compazine (scheduled) and encouraged to re-introduce food slowly -If not able to eat anything by tomorrow, will evaluate for other etiologies as detailed above. #UTI, uncomplicated -UA suggestive of infection. -Urine cultures : E.coli sensitive to everything except Bactrim -Continue IV Ceftriaxone 2 g every 24 hours #GERD - Was referring some difficulty swallowing and burning sensation - EGD yesterday with benign-appearing esophageal stenosis that was dilated and biopsied, as well as a small hiatal hernia and normal duodenum. - Continue PPI + Pepcid as it has helped relieve symptoms #PTSD #Anxiety - Previous overdose with home Ambien and Seroquel noted - continue clonazepam as 1 mg BID prn here - continue home Ambien tonight - continue home paroxetine #Systolic Murmur -Pt mentioned having a history of 'heart problems' but was never follow-up with cardiology or PCP -Echo from July showed no abnormalities -Patient asymptomatic -Continue to monitor. Recommend pt f/u with PCP #HTN - Restarted home Lisinopril and Metoprolol #Avascular necrosis of bones of both hips, stable -Normal pelvis CTA showed stable avascular necrosis of the femoral heads without articular surface collapse. -Stable at this time Dispo: discharge back home once able to eat and drink well IVF: NSS @ 125 cc/hr VTE ppx: SCDs until patient able to abulate more FULL CODE Admission and Anticipated Discharge Date Admission Date: January 05, 2024 Supervising Physician Co-Signing Physician Notes I personally examined the patient and verified all serna points of history and exam, discussed case, and agree with decision making with Dr Glaser and Albertina Esposito MS2 Had some nausea and vomiting either late last night or early this morningno vomiting since. Has no appetite and still feels somewhat nauseated, but also has not really tried to eat or drink much of anything. Is willing to try. Abdominal pain seems about the same as yesterday. Vitals noted, in general she is sleepy but easily awoken no distress. HEENT normocephalic atraumatic mucous membranes moist. Breathing unlabored no accessory muscle use good effort. Skin without rashes pallor or icterus. Nausea vomiting jaundicemain differential would be that she had a viral illness, followed by either a viral hepatitis or a postviral immune mediated hepatitiseither way appears to be resolving. Hard to rule out that she passed a stone, but seems less likely. Labs have shown an overall reassuring trend. Encouraged p.o. intakeif her p.o. intake improves, likely all just residual from her viral illness/viral hepatitisat the same time, if she is not able to tolerate p.o., then we will need to pursue other diagnoses (possibly repeat CT abdomen pelvis with p.o. contrast, and then pursue etiologies such as trigger points, functional dyspepsia, gastroparesis, validity of MAL S)but hopefully she will show improvement with supportive care and time. Abdominal painseems most consistent with abdominal wall and lower rib cage strain from profuse vomitingmobilization, Voltaren gel, time. Follow-up with p.o. intake and workup further if she has poor p.o. intake as above. Question of median arcuate ligament syndromeCT from the fall showed findings consistent with this, but on chart review she had no pain at the time, CT now does not show findings. Reviewed by both surgery and GI during that admission - neither team felt it of clinical significance at the time. On review of literature this can have respiratory variation, at the same time, seems fairly inconsistent with her clinical picture. Certainly would want to avoid setting her up for anything that would go down the road to surgery unless it was clearly a culprit in her painwhich it is not. Continue to follow clinically, consider respiratory variation ultrasound if symptoms persist. Otherwise as above Subjective Ms. Alan is a 28 y/o female with PMHx of celiac disease, chronic left hip pain, major depression, mixed anxiety disorder, IBS, history of alcohol abuse, PTSD, and MALS who presents to the hospital with right upper quadrant abdominal pain as well as jaundice. She was evaluated at bedside and found to be alone, AAOx3, afebrile, and in NAD. She refers persistent abdominal pain more marked on the bilateral upper quadrants more closely to the costal regions, as well as single episode of non- bloody emesis this morning. Still feeling nauseous and has not been able to eat in the last 5 days. Also has not had a bowl movement in 4-5 days. Refers feeling lightheadedness and dizziness when she sits up and stands up. Also states that Compazine given this morning did help some with her nausea but it has returned since then. Denies chest pain, SOB, fevers, chills, headaches, blood in her urine, or any other symptom. Review of Systems Review of Systems: As per HPI. Physical Exam Physical Exam: General: AAOx3, afebrile, NAD CV: RRR, no r/m/g Pulm: CTA bilaterally, normal rep effort, no resp distress GI: pain on palpation of upper quadrants that is more marked over ribs, no epigastric pain, tenderness on palpation of bilateral lower quadrants, soft, non-distended Ext: no swelling or calf tenderness in bilateral calves. Results & Data Results & Data Vital Signs (Past 12 Hours) Vital Signs Temp Pulse Resp BP Pulse Ox O2 Del Method 01/09/24 07:30 36.7 C 63 16 130/93 97 Room Air Resident Activity Tracking Resident Involvement: Resident Care Provided Care Provided: Adult Hospital Medicine
[2024-01-09] MEDS: SODIUM CHLORIDE 0.9% 1,000 ML IV SCH (11:45)
[2024-01-09] MEDS: PROCHLORPERAZINE 5 MG in SYRINGE 4 ML IV PRN (11:45)
--- NOTE | 2024-01-09 18:37 | Billing Data ---
Date of Service January 09, 2024 Coding Level of Care Code 57796 SUB INP/OBS CARE
[2024-01-10] MEDS: HYDROmorphone INJ 0.5 MG/0.5 ML SYR IV STA (02:09)
[2024-01-10 07:15] LABS: Albumin Globulin Ratio 1.3 (0.9-2); BUN Creatinine Ratio 3.4 (10-20); Bilirubin,Total 0.6 mg/dl (0.2-1.0); Calcium 8.4 mg/dl (8.6-10.3); Creatinine Clr Calc Pharmacy 154.6 ml/min; Est GFR (African American) 146.4 ml/min; Est GFR (Non-African American) 126.3 ml/min; Globulin 2.4 gm/dl (2.5-4.0); Potassium 3.3 mmol/L (3.5-5.1); Total Protein 5.4 gm/dl (6.0-8.3)
[2024-01-10 10:18] LABS: Hematocrit (blood only) 29.7 % (37.0-47.0); Mean Corpuscular Hemoglobin 32.5 pg (25.0-34.0); Mean Corpuscular Hgb Conc 33.7 g/dL (32.0-36.0); Mean Corpuscular Volume 96.4 fL (80.0-100.0); Mean Platelet Volume 10.1 fL (9.4-12.4); Platelet Count 174 K/uL (130-400); RDW Coefficient of Variation 15.2 % (11.5-14.5); RDW Standard Deviation 53.2 fL (36.4-46.3); Red Blood Count 3.08 M/uL (4.20-5.40); White Blood Count 4.94 K/ul (4.8-10.8)
--- NOTE | 2024-01-10 10:44 | Hospitalist Progress Note ---
Date of Service January 10, 2024 Assessment & Plan (1) Elevated LFTs: (2) Hyperbilirubinemia: (3) Right upper quadrant abdominal pain: Plan Pt is a 28 yo female with a past medical history of PTSD, anxiety, insomnia, ADHD (recently started on medications), HTN, avascular necrosis of hips, and hx of MALS who presents to the hospital on 01/04 for nausea, vomiting, abdominal pain. LFTs continue to normalize and AST is still slightly higher but decreased from yesterday. Has been able to eat a little more than yesterday without vomiting, but slowly re-introducing herself to food due to nausea and concerns for vomiting while she still has abdominal pain. Due to slightly worse pain in RLQ, will order CTAP with both IV and PO contrast. #N/V + Hypovolemia #Abdominal pain #Transaminitis // Hyperbilirubinemia // Viral Hepatitis?, improved -Patient presented to the hospital with right upper quadrant abdominal pain, jaundice, and sclera icterus -Right upper quadrant ultrasound showed stable fatty liver, otherwise unremarkable. Abdominal pelvis CTA negative. 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 -Acute hepatitis panel negative -LFTs have essentially normalized and T.bili was normal as well at 0.8. -Last episode of vomiting was this morning, not again since then -BP normal but lightheaded with standing; Orthostatics positive; Likely due to hypovolemia from poor PO intake; Continue NSS -Still nauseous which may be due to combined effects of recent illness and her not having eaten anything for a few days -Continue PPI, Pepcid, Compazine (scheduled) and encouraged to re-introduce food slowly -If not able to eat anything by tomorrow, will evaluate for other etiologies. -CTAP with IV and PO contrast ordered #UTI, uncomplicated -UA suggestive of infection. -Urine cultures : E.coli sensitive to everything except Bactrim -Continue IV Ceftriaxone 2 g every 24 hours #GERD - Was referring some difficulty swallowing and burning sensation - EGD 01/08/24 with benign-appearing esophageal stenosis that was dilated and biopsied, as well as a small hiatal hernia and normal duodenum. - Continue PPI + Pepcid as it has helped relieve symptoms #PTSD #Anxiety - Previous overdose with home Ambien and Seroquel noted - continue clonazepam as 1 mg BID prn here - continue home Deondre mena - continue home paroxetine #Systolic Murmur -Pt mentioned having a history of 'heart problems' but was never follow-up with cardiology or PCP -Echo from July showed no abnormalities -Patient asymptomatic -Continue to monitor. Recommend pt f/u with PCP #HTN - Continue home Lisinopril and Metoprolol #Avascular necrosis of bones of both hips, stable -Normal pelvis CTA showed stable avascular necrosis of the femoral heads without articular surface collapse. -Stable at this time Dispo: discharge back home once able to eat and drink well IVF: NSS @ 125 cc/hr VTE ppx: SCDs until patient able to ambulate more FULL CODE Admission and Anticipated Discharge Date Admission Date: January 05, 2024 Supervising Physician Co-Signing Physician Notes I personally examined the patient and verified all serna points of history and exam, discussed case, and agree with decision making with Dr Glaser Still has not really ate well, is tolerating p.o. contrast for CT scan whenever we see her. Pain about the same. Vitals noted, in general she is sleepy but easily awoken no distress. HEENT normocephalic atraumatic mucous membranes moist. Breathing unlabored no accessory muscle use good effort. Skin without rashes pallor or icterus. Nausea vomiting jaundicemain differential would be that she had a viral illness, followed by either a viral hepatitis or a postviral immune mediated hepatitiseither way appears to be resolving. Hard to rule out that she passed a stone, but seems less likely. Labs have shown an overall very reassuring trend. With nausea and inability to take p.o. persistingagree with CT abdomen pelvis with p.o. contrast. May need to workup further pursuing etiology such as functional dyspepsia, gastroparesis, trigger points, or MALS as etiologies of her pain/nausea if things do not improve, but we all (patient included) suspected that her p.o. intake is likely to improve with time and that it is likely still poor largely because she was so sick for so long Abdominal painseems most consistent with abdominal wall and lower rib cage strain from profuse vomitingmobilization, Voltaren gel, time. Follow-up with p.o. intake and workup further if she has poor p.o. intake as above. Question of median arcuate ligament syndromeCT from the fall showed findings consistent with this, but on chart review she had no pain at the time, CT now does not show findings. Reviewed by both surgery and GI during that admission - neither team felt it of clinical significance at the time. On review of literature this can have respiratory variation, at the same time, seems fairly inconsistent with her clinical picture. Certainly would want to avoid setting her up for anything that would go down the road to surgery unless it was clearly a culprit in her painwhich it is not. Continue to follow clinically, consider respiratory variation ultrasound if symptoms persist. Otherwise as above Subjective Ms. Alan is a 28 y/o female with PMHx of celiac disease, chronic left hip pain, major depression, mixed anxiety disorder, IBS, history of alcohol abuse, PTSD, and MALS who presents to the hospital with right upper quadrant abdominal pain as well as jaundice. She was evaluated at bedside and found to be alone, AAOx3, afebrile, and in NAD. Refers having persistent abdominal pain more marked in bilateral upper quadrants in costal region, as well as bilateral lower quadrants that is worse with movement or strain. Las episode of vomiting was this morning. Did try to eat more yesterday and has been able to take sips of her water and boost nutrition drink, and was able to drink 1/3-half of a smoothie brought to her yesterday. Still refers nausea that improves with Compazine. Walks but feels somewhat li ghtheaded when she does, but somewhat better compared to yesterday. Denies chest pain, SOB, fevers, chills, headaches, blood in her urine, or any other symptom. Review of Systems Review of Systems: As per HPI. Physical Exam Physical Exam: General: AAOx3, afebrile, NAD CV: RRR, no r/m/g Pulm: CTA bilaterally, normal rep effort, no resp distress GI: pain on palpation of upper quadrants that is more marked over ribs, no epigastric pain, tenderness on palpation of bilateral lower quadrants more marked on the RLQ, soft, non-distended Ext: no swelling or calf tenderness in bilateral calves. Results & Data Results & Data Vital Signs (Past 12 Hours) Vital Signs Temp Pulse Resp BP Pulse Ox O2 Del Method 01/10/24 07:54 36.6 C 61 16 145/98 H 93 Room Air Resident Activity Tracking Resident Involvement: Resident Care Provided Care Provided: Adult Hospital Medicine
[2024-01-10] MEDS: OPTIRAY 320 100ml IV ONE (16:18)
--- NOTE | 2024-01-10 16:58 | Billing Data ---
Date of Service January 10, 2024 Coding Level of Care Code 95165 SUB INP/OBS CARE
--- NOTE | 2024-01-10 17:02 | CT Scan Report ---
ABDOMEN AND PELVIS CT WITH IV AND ORAL CONTRAST CT DOSE: 854.27 mGy.cm HISTORY: Acute nausea and vomiting with generalized abdominal pain. abdominal pain; N/V TECHNIQUE: Multiaxial CT images of the abdomen and pelvis were performed following the IV administrat ion of 93 cc of Optiray and oral contrast. A dose lowering technique was utilized adhering to the pr inciples of JARON. COMPARISON STUDY: CTA 01/05/2024. FINDINGS: Small pleural effusions. Intralobular septal thickening of the right greater than left lung bases. No free air. Unremarkable spleen, pancreas and adrenal glands. Borderline gallbladder wall th ickening is nonspecific. Trace abdominopelvic ascites. Unremarkable liver. Patency of the hepatic and portal veins. Unremarkable kidneys without hydronephrosis. Unremarkable urinary bladder. Bilateral ovarian follicle s. The uterus is within normal limits. Aorta and IVC are unremarkable. Subcentimeter retroperitoneal lymph nodes. Moderate narrowing at the celiac origin is again noted. No bowel obstruction. There is wall thickening with partial distention involving the cecum and ascend ing colon. Noninflamed appendix. Avascular necrosis of the femoral heads. No acute fracture. IMPRESSION: 1. Mild pulmonary edema with small pleural effusions and trace abdominopelvic ascites. 2. No bowel obstruction or pneumoperitoneum. 3. Normal appendix. 4. Mild nonspecific wall thickening of the ascending colon which may be secondary to partial distenti on versus a mild nonspecific colitis. 5. Moderate narrowing at the celiac origin is again seen suggestive of median arcuate ligament syndro me. 6. Avascular necrosis of the femoral heads. ACT 112: Negative or not required by law. The above report was generated using voice recognition software. It may contain grammatical, syntax o r spelling errors. Dictated: 01/10/2024 4:27 PM Transcribed: 01/10/2024 4:48 PM Suresh [id number] [email or web address] Electronically signed by: Polo Cote M.D. 01/10/2024 5:01 PM
[2024-01-11 06:33] LABS: Hemoglobin 10.4 g/dl (12.0-16.0); Mean Corpuscular Hemoglobin 32.6 pg (25.0-34.0); Mean Corpuscular Hgb Conc 34.7 g/dL (32.0-36.0); Platelet Count 218 K/uL (130-400); RDW Coefficient of Variation 14.8 % (11.5-14.5); RDW Standard Deviation 51.4 fL (36.4-46.3); Red Blood Count 3.19 M/uL (4.20-5.40); White Blood Count 5.16 K/ul (4.8-10.8)
[2024-01-11 06:59] LABS: Albumin Globulin Ratio 1.3 (0.9-2); Albumin Level 3.1 gm/dl (3.4-5.0); BUN Creatinine Ratio 3.3 (10-20); Bilirubin,Total 0.7 mg/dl (0.2-1.0); Calcium 8.2 mg/dl (8.6-10.3); Creatinine Clr Calc Pharmacy 149.4 ml/min; Est GFR (African American) 144.8 ml/min; Est GFR (Non-African American) 124.9 ml/min; Globulin 2.4 gm/dl (2.5-4.0); Potassium 3.2 mmol/L (3.5-5.1); Total Protein 5.5 gm/dl (6.0-8.3)
[2024-01-11] MEDS: POTASSIUM CHLORIDE / WTR 10 MEQ/100 ML PLCT IV SCH (08:17)
[2024-01-11 08:34] LABS: Magnesium 1.4 mg/dl (1.7-2.4)
--- NOTE | 2024-01-11 11:30 | Ultrasound Report ---
US duplex mesenteric CLINICAL HISTORY: Moderate narrowing of celiac artery on CT; MALS? COMPARISON STUDY: Abdomen and pelvis CT 01/10/2024. FINDINGS: The proximal abdominal aorta demonstrates a peak systolic velocity of 125 cm/s. The celiac artery with inspiration demonstrates a peak systolic velocity of 168 cm/s and a peak systolic velocit y of 388 cm/s with expiration. Therefore, this can be seen in the setting of median arcuate ligament syndrome. Based on velocity within the superior mesenteric artery is dilated up to 4 cm/s. However, n o significant stenosis on the recent CTA. IMPRESSION: Elevated peak systolic velocity in the celiac artery during expiration which normalizes during inspiration. Therefore, this can be seen in the setting of median arcuate ligament syndrome. ACT 112: Negative or not required by law. Electronically signed by: Dheeraj Ramsey M.D. 01/11/2024 11:28 AM
--- NOTE | 2024-01-11 14:32 | Hospitalist Progress Note ---
Date of Service January 11, 2024 Assessment & Plan (1) Elevated LFTs: (2) Hyperbilirubinemia: (3) Right upper quadrant abdominal pain: Plan Pt is a 28 yo female with a past medical history of PTSD, anxiety, insomnia, ADHD (recently started on medications), HTN, avascular necrosis of hips, and hx of MALS who presents to the hospital on 01/04 for nausea, vomiting, abdominal pain. LFTs all normalized. CTAP with both PO and IV contrast showing MALS and confirmed by Mesenteric arterial Doppler. Discussed management options that are not limited to anatomical correction through surgery such as neuropsychiatric component of pain and how some patient who undergo surgery may not notice improvement due to the neuropsychiatric component that is not addressed. #N/V + Hypovolemia #Abdominal pain // Muscle strain versus MALS #Transaminitis // Hyperbilirubinemia (Resolved) -Patient presented to the hospital with right upper quadrant abdominal pain, jaundice, and sclera icterus -Right upper quadrant ultrasound showed stable fatty liver, otherwise unrema rkable. -Acute hepatitis panel negative -LFTs have essentially normalized and T.bili was normal as well at 0.8. -Still poor PO intake and N/V -Abdominal pain controlled with Tylenol and Dilaudid prn -BP normal but lightheaded with standing; Orthostatics positive; Likely due to hypovolemia from poor PO intake; Continue NSS -Continue PPI, Pepcid, Compazine (scheduled) and encouraged to re-introduce food slowly -CTAP with IV and PO contrast showing narrowing of the origin of the celiac artery suggestive of MALS. -Mesenteric Doppler confirms MALS -Discussed multimodal management of pain not limited to correction of anatomy through surgery #UTI, uncomplicated -UA suggestive of infection. -Urine cultures : E.coli sensitive to everything except Bactrim -Continue IV Ceftriaxone 2 g every 24 hours #GERD - Was referring some difficulty swallowing and burning sensation - EGD 01/08/24 with benign-appearing esophageal stenosis that was dilated and biopsied, as well as a small hiatal hernia and normal duodenum. - Continue PPI + Pepcid as it has helped relieve symptoms #PTSD #Anxiety - Previous overdose with home Ambien and Seroquel noted - continue clonazepam as 1 mg BID prn here - continue home Ambien tonight - continue home paroxetine #Systolic Murmur -Pt mentioned having a history of 'heart problems' but was never follow-up with cardiology or PCP -Echo from July showed no abnormalities -Patient asymptomatic -Continue to monitor. Recommend pt f/u with PCP #HTN - Continue home Lisinopril and Metoprolol #Avascular necrosis of bones of both hips, stable -Normal pelvis CTA showed stable avascular necrosis of the femoral heads without articular surface collapse. -Stable at this time Dispo: discharge back home once able to eat and drink well IVF: NSS @ 125 cc/hr VTE ppx: SCDs until patient able to ambulate more FULL CODE Admission and Anticipated Discharge Date Admission Date: January 05, 2024 Supervising Physician Co-Signing Physician Notes I personally examined the patient and verified all serna points of history and exam, discussed case, and agree with decision making with Dr Glaser looking brighter, but still not really tolerating p.o. very well. Still having a decent of upper abdominal pain. Extensive discussion with patient, and then mother entered the room near the end of the discussion and reiterated discussion with mother, in regards to high probability of median arcuate ligament syndrome. Vitals noted, in general she is sleepy but easily awoken no distress. HEENT normocephalic atraumatic mucous membranes moist. Breathing unlabored no accessory muscle use good effort. Skin without rashes pallor or icterus. Nausea vomiting jaundicemain differential would be that she had a viral illness, followed by either a viral hepatitis or a postviral immune mediated hepatitiseither way appears to be resolving. Hard to rule out that she passed a stone, but seems less likely. Labs have shown an overall very reassuring trend. Essentially this acute issue has resolved median arcuate ligament syndromeon review of her chronic symptoms, she does have a lot of upper abdominal pain, bloating, nausea vomiting, food intolerance. Possibly a little bit of weight loss. Essentially symptoms that do seem to fit with the literature findings consistent with MAL S. We discussed the literature on this, also discussed the mind-body approach that is necessary with any of these more esoteric abdominal pain disorders (discussing that you can often have the right surgery and still not really get the right outcome, and then also because of surgical mishaps, if the disease is able to be managed nonoperatively, that could be favorable)right now we will start with a mind- body approach, work towards pain management for a celiac nerve block, and then surgery if she is not doing better/quality of life is still poor. In the meantime given that she is still not able to meaningfully eat or drink, will utilize med management to see if we cannot help improve symptoms enough to at least have her do well enough to get out of the hospitalProtonix twice daily, Pepcid twice daily, Carafate 4 times daily, cyproheptadine 3 times daily. Otherwise as above Subjective Ms. Alan is a 28 y/o female with PMHx of celiac disease, chronic left hip pain, major depression, mixed anxiety disorder, IBS, history of alcohol abuse, PTSD, and MALS who presents to the hospital with right upper quadrant abdominal pain as well as jaundice. Patient was seen at bedside and found to be alone, AAOx4, and in NAD. She states she still has abdominal pain that is a 7-8/10 in intensity and generalized. Has not tried to eat anything more today due to nausea and feeling like the food is going back up every time she does. Also endorses she experiences morning nausea and vomiting 5 out of 7 days of the week and has to drink things slowly at home due to sensation like she's going to vomit. Refers she prefers to spend all day without eating anything before eating something she does not want to eat more so due to her hyperfixation from her ADHD rather than concern for nausea or vomiting or abdominal pain. Denies chest pain, fevers, SOB, or any other symptom. Review of Systems Review of Systems: As per HPI. Physical Exam Physical Exam: General: AAOx3, afebrile, NAD CV: RRR, no r/m/g Pulm: CTA bilaterally, normal rep effort, no resp distress GI: pain on palpation of upper quadrants that is more marked over ribs, no epigastric pain, tenderness on palpation of bilateral lower quadrants more marked on the RLQ, soft, non-distended Ext: no swelling or calf tenderness in bilateral calves. Results & Data Results & Data Vital Signs (Past 12 Hours) Vital Signs Temp Pulse Resp BP Pulse Ox O2 Del Method 01/11/24 08:03 36.8 C 62 16 146/98 H 96 Room Air
[2024-01-11] MEDS: ACETAMINOPHEN 1,000 MG/100 ML VIAL IV SCH (17:19)
--- NOTE | 2024-01-11 20:08 | Billing Data ---
Date of Service January 11, 2024 Coding Level of Care Code 10251 SUB INP/OBS CARE
[2024-01-11] MEDS: SUCRALFATE 1 GM/10 ML UDC PO SCH (20:38)
[2024-01-11] MEDS: CYPROHEPTADINE HCL 4 MG TAB PO SCH (20:38)
[2024-01-12 07:34] LABS: Hemoglobin 10.7 g/dl (12.0-16.0); Mean Corpuscular Hemoglobin 32.7 pg (25.0-34.0); Mean Corpuscular Hgb Conc 34.5 g/dL (32.0-36.0); Mean Corpuscular Volume 94.8 fL (80.0-100.0); Mean Platelet Volume 10.2 fL (9.4-12.4); Platelet Count 285 K/uL (130-400); RDW Coefficient of Variation 15.1 % (11.5-14.5); RDW Standard Deviation 52.5 fL (36.4-46.3); Red Blood Count 3.27 M/uL (4.20-5.40); White Blood Count 4.54 K/ul (4.8-10.8)
[2024-01-12 07:56] LABS: Alanine Aminotransferase 25 U/L (7-52); Albumin Globulin Ratio 1.3 (0.9-2); Alkaline Phosphatase 77 U/L (34-104); Anion Gap 5 (3-11); Aspartate Aminotransferase 33 U/L (13-39); Bilirubin,Total 0.8 mg/dl (0.2-1.0); Blood Urea Nitrogen < 2 mg/dl (6-23); Calcium 7.7 mg/dl (8.6-10.3); Carbon Dioxide 25 mmol/L (21-32); Chloride 111 mmol/L (98-107); Creatinine Clr Calc Pharmacy 151.9 ml/min; Est GFR (African American) 145.6 ml/min; Est GFR (Non-African American) 125.6 ml/min; Globulin 2.4 gm/dl (2.5-4.0); Glucose 78 mg/dl (70-99(Fasting)); Potassium 3.3 mmol/L (3.5-5.1); Sodium 141 mmol/L (136-145); Total Protein 5.4 gm/dl (6.0-8.3)
[2024-01-12] MEDS: POTASSIUM CHLORIDE / WTR 10 MEQ/100 ML PLCT IV SCH (09:34)
[2024-01-12] MEDS: MAGNESIUM SULFATE / D5W 1 GM/100 ML BAG IV SCH (09:34)
--- NOTE | 2024-01-12 13:49 | Hospitalist Progress Note ---
Date of Service January 12, 2024 Assessment & Plan (1) Elevated LFTs: (2) Hyperbilirubinemia: (3) Right upper quadrant abdominal pain: Plan Pt is a 28 yo female with a past medical history of PTSD, anxiety, insomnia, ADHD (recently started on medications), HTN, avascular necrosis of hips, and hx of MALS who presents to the hospital on 01/04 for nausea, vomiting, abdominal pain. Patient with generalized abdominal pain that may possibly be due to MALS + Hunger (not eaten in several days) + Abdominal wall strain. Dilaudid no longer working much for her at current dose which caused anxiety this morning and subsequent increase in her pain. Pain was ultimately managed with current medications and Clonazepam dose, which increased suspicion that there may be a neuropsychiatric component to her pain. Will keep current pain regimen and manage other 2 contributors to patient;s pain (hunger and strain) with scheduled nutritional shakes and slowly re-introducing her to food, as well as voltaren gel for her abdominal wall muscles. If she does not eat still, could consider nutrition consult. #N/V + Hypovolemia #Abdominal pain // Muscle strain versus MALS #Transaminitis // Hyperbilirubinemia (Resolved) -Patient presented to the hospital with right upper quadrant abdominal pain, jaundice, and sclera icterus -Right upper quadrant ultrasound showed stable fatty liver, otherwise unremarkable. -Acute hepatitis panel negative -LFTs have essentially normalized and T.bili was normal as well at 0.8. -Still poor PO intake and N/V -Abdominal pain controlled for the most part with Tylenol and Dilaudid prn -Continue IVF due to poor PO intake/hydration, and add scheduled nutritional shakes to try and increase PO intake -Buspar added for anxiety component of pain -Continue PPI, Pepcid, Compazine (scheduled) and encouraged to re-introduce food slowly -CTAP with IV and PO contrast showing narrowing of the origin of the celiac artery suggestive of MALS. -Mesenteric Doppler confirms MALS -Discussed multimodal management of pain not limited to correction of anatomy through surgery #UTI, uncomplicated -UA suggestive of infection. -Urine cultures : E.coli sensitive to everything except Bactrim -s/p 6 days of Ceftriaxone #GERD - Was referring some difficulty swallowing and burning sensation - EGD 01/08/24 with benign-appearing esophageal stenosis that was dilated and biopsied, as well as a small hiatal hernia and normal duodenum. - Continue PPI + Pepcid as it has helped relieve symptoms #PTSD #Anxiety - Previous overdose with home Ambien and Seroquel noted - continue clonazepam as 1 mg BID prn here - continue home Ambien tonight - continue home paroxetine #Systolic Murmur -Pt mentioned having a history of 'heart problems' but was never follow-up with cardiology or PCP -Echo from July showed no abnormalities -Patient asymptomatic -Continue to monitor. Recommend pt f/u with PCP #HTN - Continue home Lisinopril and Metoprolol #Avascular necrosis of bones of both hips, stable -Normal pelvis CTA showed stable avascular necrosis of the femoral heads without articular surface collapse. -Stable at this time Dispo: discharge back home once able to eat and drink well IVF: NSS @ 125 cc/hr VTE ppx: SCDs until patient able to ambulate more FULL CODE Admission and Anticipated Discharge Date Admission Date: January 05, 2024 Supervising Physician Co-Signing Physician Notes I personally examined the patient and verified all serna points of history and exam, discussed case, and agree with decision making with Dr Glaser tolerating protein shakes better, try to eat a bit of the sandwich and dry heaves although did not vomited up. Vitals noted, in general she is sleepy but easily awoken no distress. HEENT normocephalic atraumatic mucous membranes moist. Breathing unlabored no accessory muscle use good effort. Skin without rashes pallor or icterus. Nausea vomiting jaundicemain differential would be that she had a viral illness, followed by either a viral hepatitis or a postviral immune mediated hepatitiseither way appears to be resolving. Hard to rule out that she passed a stone, but seems less likely. Labs have shown an overall very reassuring trend. Essentially this acute issue has resolved median arcuate ligament syndromeon review of her chronic symptoms, she does have a lot of upper abdominal pain, bloating, nausea vomiting, food intolerance. Possibly a little bit of weight loss. Essentially symptoms that do seem to fit with the literature findings consistent with MAL S. Yesterday, we discussed the literature on this, also discussed the mind-body approach that is necessary with any of these more esoteric abdominal pain disorders (discussing that you can often have the right surgery and still not really get the right outcome, and then also because of surgical mishaps, if the disease is able to be managed nonoperatively, that could be favorable)right now we will start with a mind- body approach, work towards pain management for a celiac nerve block, and then surgery if she is not doing better/quality of life is still poor. p.o. intake marginally improvedincrease cyproheptadine to 4 times a day, continue Protonix Pepcid Carafate, schedule Compazine. Otherwise as above Subjective Ms. Alan is a 28 y/o female with PMHx of celiac disease, chronic left hip pain, major depression, mixed anxiety disorder, IBS, history of alcohol abuse, PTSD, and MALS who presents to the hospital with right upper quadrant abdominal pain as well as jaundice. Patient was seen at bedside and found to be alone, AAOx4, and in NAD. States she still has some abdominal pain and has not been able to eat anything due to nausea. Feels the Dilaudid is no longer working. No other concern. Review of Systems Review of Systems: As per HPI. Physical Exam Physical Exam: General: AAOx3, afebrile, NAD CV: RRR, no r/m/g Pulm: CTA bilaterally, normal rep effort, no resp distress GI: soft, nondistended, generalized tenderness Ext: no swelling or calf tenderness in bilateral calves. Results & Data Results & Data Vital Signs (Past 12 Hours) Vital Signs Temp Pulse Resp BP BP Pulse Ox O2 Del Method 01/12/24 13:08 65 167/122 H 95 Room Air 01/12/24 08:22 73 163/108 H 01/12/24 07:33 36.5 C 76 22 189/134 H 94 Room Air Resident Activity Tracking Resident Involvement: Resident Care Provided Care Provided: Adult Hospital Medicine
--- NOTE | 2024-01-12 17:04 | Billing Data ---
Date of Service January 12, 2024 Coding Level of Care Code 30290 SUB INP/OBS CARE
[2024-01-12] MEDS: CYPROHEPTADINE HCL 4 MG TAB PO SCH (20:56)
[2024-01-12] MEDS: busPIRone 5 MG TAB PO SCH (20:56)
[2024-01-13 06:56] LABS: Hematocrit (blood only) 30.4 % (37.0-47.0); Hemoglobin 10.3 g/dl (12.0-16.0); Mean Corpuscular Hemoglobin 32.4 pg (25.0-34.0); Mean Corpuscular Hgb Conc 33.9 g/dL (32.0-36.0); Mean Corpuscular Volume 95.6 fL (80.0-100.0); Platelet Count 336 K/uL (130-400); RDW Coefficient of Variation 15.2 % (11.5-14.5); Red Blood Count 3.18 M/uL (4.20-5.40); White Blood Count 5.21 K/ul (4.8-10.8)
[2024-01-13 07:32] LABS: Alanine Aminotransferase 21 U/L (7-52); Albumin Globulin Ratio 1.2 (0.9-2); Albumin Level 2.9 gm/dl (3.4-5.0); Alkaline Phosphatase 74 U/L (34-104); Anion Gap 3 (3-11); Aspartate Aminotransferase 24 U/L (13-39); Bilirubin,Total 0.7 mg/dl (0.2-1.0); Blood Urea Nitrogen < 2 mg/dl (6-23); Calcium 7.6 mg/dl (8.6-10.3); Carbon Dioxide 24 mmol/L (21-32); Chloride 113 mmol/L (98-107); Est GFR (Non-African American) 128.5 ml/min; Globulin 2.4 gm/dl (2.5-4.0); Glucose 89 mg/dl (70-99(Fasting)); Magnesium 1.7 mg/dl (1.7-2.4); Potassium 3.6 mmol/L (3.5-5.1); Sodium 140 mmol/L (136-145); Total Protein 5.3 gm/dl (6.0-8.3)
--- NOTE | 2024-01-13 08:05 | Hospitalist Progress Note ---
Date of Service January 13, 2024 Assessment & Plan (1) Elevated LFTs: (2) Hyperbilirubinemia: (3) Right upper quadrant abdominal pain: Plan Pt is a 28 yo female with a past medical history of PTSD, anxiety, insomnia, ADHD (recently started on medications), HTN, avascular necrosis of hips, and hx of MALS who presents to the hospital on 01/04 for nausea, vomiting, abdominal pain. Patient with generalized abdominal pain that may possibly be due to MALS + Hunger (not eaten in several days) + Abdominal wall strain. Dilaudid no longer working much for her at current dose which caused anxiety this morning and subsequent increase in her pain. Pain was ultimately managed with current medications and Clonazepam dose, which increased suspicion that there may be a neuropsychiatric component to her pain. Will keep current pain regimen and manage other 2 contributors to patient;s pain (hunger and strain) with scheduled nutritional shakes and slowly re-introducing her to food, as well as voltaren gel for her abdominal wall muscles. If she does not eat still, could consider nutrition consult. #N/V + Hypovolemia #Abdominal pain // Muscle strain versus MALS #Transaminitis // Hyperbilirubinemia (Resolved) -Patient presented to the hospital with right upper quadrant abdominal pain, jaundice, and sclera icterus -Right upper quadrant ultrasound showed stable fatty liver, otherwise unremarkable. -Acute hepatitis panel negative -LFTs have essentially normalized and T.bili was normal as well at 0.8. -Still poor PO intake and N/V -Abdominal pain controlled for the most part with Tylenol and Dilaudid prn -Continue IVF due to poor PO intake/hydration, and add scheduled nutritional shakes to try and increase PO intake -Buspar added for anxiety component of pain -Continue PPI, Pepcid, Compazine (scheduled) and encouraged to re-introduce food slowly -CTAP with IV and PO contrast showing narrowing of the origin of the celiac artery suggestive of MALS. -Mesenteric Doppler confirms MALS -Discussed multimodal management of pain not limited to correction of anatomy through surgery #UTI, uncomplicated -UA suggestive of infection. -Urine cultures : E.coli sensitive to everything except Bactrim -s/p 6 days of Ceftriaxone #GERD - Was referring some difficulty swallowing and burning sensation - EGD 01/08/24 with benign-appearing esophageal stenosis that was dilated and biopsied, as well as a small hiatal hernia and normal duodenum. - Continue PPI + Pepcid as it has helped relieve symptoms #PTSD #Anxiety - Previous overdose with home Ambien and Seroquel noted - continue clonazepam as 1 mg BID prn here - continue home Ambien tonight - continue home paroxetine #Systolic Murmur -Pt mentioned having a history of 'heart problems' but was never follow-up with cardiology or PCP -Echo from July showed no abnormalities -Patient asymptomatic -Continue to monitor. Recommend pt f/u with PCP #HTN - Continue home Lisinopril and Metoprolol #Avascular necrosis of bones of both hips, stable -Normal pelvis CTA showed stable avascular necrosis of the femoral heads without articular surface collapse. -Stable at this time Dispo: discharge back home once able to eat and drink well IVF: NSS @ 125 cc/hr VTE ppx: SCDs until patient able to ambulate more FULL CODE Admission and Anticipated Discharge Date Admission Date: January 05, 2024 Supervising Physician Co-Signing Physician Notes I personally examined the patient and verified all serna points of history and exam, discussed case, and agree with decision making with Dr Theo Zuniga eating a little better, food still not sitting great, but not vomiting it up. Notes part of the problem might also be the very limited and unappetizing selection of gluten-free food available here, as well as right now feeling like more of a liquid diet will sit better Vitals noted, in general she is sleepy but easily awoken no distress. HEENT normocephalic atraumatic mucous membranes moist. Breathing unlabored no accessory muscle use good effort. Skin without rashes pallor or icterus. Nausea vomiting jaundicemain differential would be that she had a viral illness, followed by either a viral hepatitis or a postviral immune mediated hepatitiseither way appears to be resolving. Hard to rule out that she passed a stone, but seems less likely. Labs have shown an overall very reassuring trend. Essentially this acute issue has resolved median arcuate ligament syndromeon review of her chronic symptoms, she does have a lot of upper abdominal pain, bloating, nausea vomiting, food intolerance. Possibly a little bit of weight loss. Essentially symptoms that do seem to fit with the literature findings consistent with MAL S. Yesterday, we discussed the literature on this, also discussed the mind-body approach that is necessary with any of these more esoteric abdominal pain disorders (discussing that you can often have the right surgery and still not really get the right outcome, and then also because of surgical mishaps, if the disease is able to be managed nonoperatively, that could be favorable)right now we will start with a mind- body approach, work towards pain management for a celiac nerve block, and then surgery if she is not doing better/quality of life is still poor. p.o. intake marginally improved continue Protonix Pepcid Carafate, cyproheptadine, Compazine. discussed having her mom bring food in from home, especially given the limitations of options with her needing to be on a truly gluten-free celiac diet Otherwise as above Subjective Patient was seen at bedside and found to be alone, AAOx4, and in NAD. She feels better. She ate a banana for breakfast and seem to had tolerated it well, no nausea or vomiting Her mom is coming over and will bring her food. Abdominal pain is controlled with pain medications. Review of Systems Review of Systems: As per HPI. Physical Exam Physical Exam: General:Alert and oriented, no acute distress, HEENT: Normocephalic, moist oral mucosa, Cardio: Regular rate and rhythm, no murmur, Resp:Lungs clear to auscultation b/l, no wheezes or rhonchi, GI: Soft, nondistended, bowel sounds active, tenderness noted RUQ and epigastric areas. No rebound, no guarding. Skin: Warm, dry, mild Jaundice Results & Data Results & Data Vital Signs (Past 12 Hours) Vital Signs Temp Pulse Resp BP Pulse Ox O2 Del Method 01/13/24 07:16 36.6 C 60 16 172/121 H 95 Room Air 01/12/24 20:58 36.7 C 84 16 165/119 H 95 Room Air Resident Activity Tracking Resident Involvement: Resident Care Provided Care Provided: Adult Hospital Medicine
[2024-01-13] MEDS: cloNIDine HCL 0.1 MG TAB PO SCH (09:42)
--- NOTE | 2024-01-13 14:32 | Billing Data ---
Date of Service January 13, 2024 Coding Level of Care Code 06756 SUB INP/OBS CARE
[2024-01-13] MEDS: HYDROmorphone INJ 0.5 MG/0.5 ML SYR IV STA (23:02)
--- NOTE | 2024-01-14 07:09 | Hospitalist Progress Note ---
Date of Service January 14, 2024 Assessment & Plan (1) Elevated LFTs: (2) Hyperbilirubinemia: (3) Right upper quadrant abdominal pain: Plan Pt is a 28 yo female with a past medical history of PTSD, anxiety, insomnia, ADHD (recently started on medications), HTN, avascular necrosis of hips, and hx of MALS who presents to the hospital on 01/04 for nausea, vomiting, abdominal pain. #N/V + Hypovolemia #Abdominal pain // Muscle strain versus MALS #Transaminitis // Hyperbilirubinemia (Resolved) -Patient presented to the hospital with right upper quadrant abdominal pain, jaundice, and sclera icterus -Right upper quadrant ultrasound showed stable fatty liver, otherwise unremarkable. -Acute hepatitis panel negative -LFTs have essentially normalized and T.bili was normal as well at 0.8. -Still poor PO intake and N/V -Abdominal pain controlled for the most part with Tylenol and Dilaudid prn -Continue IVF due to poor PO intake/hydration, and add scheduled nutritional shakes to try and increase PO intake -Buspar added -Continue PPI, Pepcid, Compazine (scheduled) and encouraged to re-introduce food slowly - she has been trying -CTAP with IV and PO contrast showing narrowing of the origin of the celiac artery suggestive of MALS. -Mesenteric Doppler confirms MALS -Discussed multimodal management of pain not limited to correction of anatomy through surgery - she expresses good understanding, but pain control has not improved to viability for dc as of yet - will consult pain management for eval/consideration of celiac block #UTI, uncomplicated, resolved -UA suggestive of infection. -Urine cultures : E.coli sensitive to everything except Bactrim -s/p 6 days of Ceftriaxone #GERD - Was referring some difficulty swallowing and burning sensation - EGD 01/08/24 with benign-appearing esophageal stenosis that was dilated and biopsied, as well as a small hiatal hernia and normal duodenum. - Continue PPI + Pepcid as it has helped relieve symptoms #PTSD #Anxiety - Previous overdose with home Ambien and Seroquel noted - continue clonazepam as 1 mg BID prn here - continue home Ambien tonight - continue home paroxetine #Systolic Murmur -Pt mentioned having a history of 'heart problems' but was never follow-up with cardiology or PCP -Echo from July showed no abnormalities -Patient asymptomatic -Continue to monitor. Recommend pt f/u with PCP #HTN - Continue home Lisinopril and Metoprolol #Avascular necrosis of bones of both hips, stable -Normal pelvis CTA showed stable avascular necrosis of the femoral heads without articular surface collapse. -Stable at this time Dispo: discharge back home once able to eat and drink well and pain is managed IVF: NSS @ 125 cc/hr VTE ppx: SCDs until patient able to ambulate more Admission and Anticipated Discharge Date Admission Date: January 05, 2024 Supervising Physician Co-Signing Physician Notes I personally examined the patient and verified all serna points of history and exam, discussed case, and agree with decision making with Dr Larkin Pain still inadequately controlled. Does not feel like she would do well at homeis willing to go home and try, but feels like right now she would just sufferI agree. Vitals noted, in general she is awake and pleasant. HEENT normocephalic atraumatic mucous membranes moist. Breathing unlabored no accessory muscle use good effort. Skin without rashes pallor or icterus. Nausea vomiting jaundicemain differential would be that she had a viral illness, followed by either a viral hepatitis or a postviral immune mediated hepatitiseither way appears to be resolving. Hard to rule out that she passed a stone, but seems less likely. Labs have shown an overall very reassuring trend. Essentially this acute issue has resolved median arcuate ligament syndromeon review of her chronic symptoms, she does have a lot of upper abdominal pain, bloating, nausea vomiting, food intolerance. Possibly a little bit of weight loss. Essentially symptoms that do seem to fit with the literature findings consistent with MAL S. Throughout her hospital stay, we discussed the literature on this, also discussed the mind-body approach that is necessary with any of these more esoteric abdominal pain disorders (discussing that you can often have the right surgery and still not really get the right outcome, and then also because of surgical mishaps, if the disease is able to be managed nonoperatively, that could be favorable)she has been trying to improve her p.o. intake, and utilize her psychology tools that she is learned from counseling and apply them to abdominal pain, but in spite of escalating doses of Protonix Pepcid Carafate, cyproheptadine, BuSpar, and Compazine she is still having markedly inadequate pain controlmanifest both by her symptoms and by her significantly elevated blood pressures (in spite of her regular antihypertensives and clonidine)we discussed that while ideally we would have been able to have her at home and follow-up later for a celiac nerve block, this seems unrealistic and seems more consistent with the potential for sufferingto that end we will ask pain management to see her and give consideration to a celiac nerve block while she is still here in the hospital. Subjective Pt states that today she feels very tired since she had a lot of pain last night preventing her from being able to go to sleep. She states that she has been able to tolerate the nutrition drinks, bananas, and yogurt, but otherwise has been struggling with significant nausea, vomiting, and abdominal pain. She states the dilaudid had been helping but has since stopped helping much. No other questions or complaints at this point. Review of Systems Review of Systems: As per HPI. Physical Exam Physical Exam: General:Alert and oriented, no acute distress, HEENT: Normocephalic, moist oral mucosa, Cardio: Regular rate and rhythm, no murmur, Resp:Lungs clear to auscultation b/l, no wheezes or rhonchi, Skin: Warm, pink, dry, Results & Data Results & Data Vital Signs (Past 12 Hours) Vital Signs Temp Pulse Resp BP BP Pulse Ox O2 Del Method 01/13/24 21:19 68 150/105 H 97 Room Air 01/13/24 21:00 Room Air 01/13/24 20:26 36.7 C 64 16 169/122 H 95 Room Air Resident Activity Tracking Resident Involvement: Resident Care Provided Care Provided: Adult Hospital Medicine
[2024-01-14] MEDS: HYDROmorphone INJ 1 MG/ML SYRINGE IV STA ×2 (15:54→20:39)
--- NOTE | 2024-01-14 17:24 | Billing Data ---
Date of Service January 14, 2024 Coding Level of Care Code 53176 SUB INP/OBS CARE
--- NOTE | 2024-01-14 17:25 | Billing Data ---
Date of Service January 14, 2024 Coding Level of Care Code 39487 SUB INP/OBS CARE
--- NOTE | 2024-01-15 07:59 | Hospitalist Progress Note ---
Date of Service January 15, 2024 Assessment & Plan (1) Elevated LFTs: (2) Hyperbilirubinemia: (3) Right upper quadrant abdominal pain: Plan Pt is a 28 yo female with a past medical history of PTSD, anxiety, insomnia, ADHD (recently started on medications), HTN, avascular necrosis of hips, and hx of MALS who presents to the hospital on 01/04 for nausea, vomiting, abdominal pain. #N/V + Hypovolemia #Abdominal pain // Muscle strain versus MALS #Transaminitis // Hyperbilirubinemia (Resolved) -Patient presented to the hospital with right upper quadrant abdominal pain, jaundice, and sclera icterus -Right upper quadrant ultrasound showed stable fatty liver, otherwise unremarkable. -Acute hepatitis panel negative -LFTs have essentially normalized and T.bili was normal as well at 0.8. -Still poor PO intake and N/V -Abdominal pain controlled for the most part with Tylenol and Dilaudid prn -Continue IVF due to poor PO intake/hydration, and add scheduled nutritional shakes to try and increase PO intake -Buspar added for anxiety component of pain -Continue PPI, Pepcid, Compazine (scheduled) and encouraged to re-introduce food slowly -CTAP with IV and PO contrast showing narrowing of the origin of the celiac artery suggestive of MALS. -Mesenteric Doppler confirms MALS -Discussed multimodal management of pain not limited to correction of anatomy through surgery - will consult pain management #UTI, uncomplicated, resolved -UA suggestive of infection. -Urine cultures : E.coli sensitive to everything except Bactrim -s/p 6 days of Ceftriaxone #GERD - Was referring some difficulty swallowing and burning sensation - EGD 01/08/24 with benign-appearing esophageal stenosis that was dilated and biopsied, as well as a small hiatal hernia and normal duodenum. - Continue PPI + Pepcid as it has helped relieve symptoms #PTSD #Anxiety - Previous overdose with home Ambien and Seroquel noted - continue clonazepam as 1 mg BID prn here - continue home Ambien tonight - continue home paroxetine #Systolic Murmur -Pt mentioned having a history of 'heart problems' but was never follow-up with cardiology or PCP -Echo from July showed no abnormalities -Patient asymptomatic -Continue to monitor. Recommend pt f/u with PCP #HTN - Continue home Lisinopril and Metoprolol #Avascular necrosis of bones of both hips, stable -Normal pelvis CTA showed stable avascular necrosis of the femoral heads without articular surface collapse. -Stable at this time Dispo: discharge back home once able to eat and drink well and pain is managed IVF: NSS @ 125 cc/hr VTE ppx: SCDs until patient able to ambulate more Admission and Anticipated Discharge Date Admission Date: January 05, 2024 Physical Exam Physical Exam: General:Alert and oriented, no acute distress, HEENT: Normocephalic, moist oral mucosa, Cardio: Regular rate and rhythm, no murmur, Resp:Lungs clear to auscultation b/l, no wheezes or rhonchi, GI: Soft, nondistended, bowel sounds active, tenderness noted RUQ and epigastric areas. No rebound, no guarding. Skin: Warm, dry, mild Jaundice Results & Data Results & Data Vital Signs (Past 12 Hours) Vital Signs Temp Pulse Resp BP BP Pulse Ox O2 Del Method 01/15/24 07:22 36.8 C 62 18 169/116 H 165/110 H 94 Room Air 01/14/24 21:00 36.7 C 56 L 19 175/105 H 95 Room Air 01/14/24 20:00 Room Air
--- NOTE | 2024-01-15 08:50 | Pain Management Consultation ---
Date of Consultation January 15, 2024 Assessment & Plan (1) Median arcuate ligament syndrome: (2) Left upper quadrant abdominal pain: Plan Patient is reporting a mild improvement in pain over te past several days. Her appetite is improving. Able to eat her entire dinner last night. I would non recommend a Celiac Plexus Nerve Block as it would only provide short term pain relief and she is not a candidate for a phenol neurolysis which would provide halfway pain relief. Phenol neurolysis is typically indicated for end of life patients with significant upper abdominal pain for example end stage pancreatic cancer. This has been explained to the patient and she is understanding. For pain she is currently receiving IV Dilaudid 1mg x 4 hours which has been providing relief. In preparation for discharge to home she is interested in transitioning to oral medication. Will try Tramadol 50mg Q4 hours PRN pain. History of Present Illness Reason for Consultation: Abdominal pain Attending Physician: Judi Marie MD History of Present Illness This is a 28 year old female patient history of upper abdominal pain, hyperbilirubinemia, jaundice, ADHD, PTSD, elevated LFTs. Found to have median arcuate ligament syndrome. She describes a constant aching pain along the left upper abdomen that will intermittently shoot to the back. The pain is aggravated with food intake. There is associated nausea. The last several days she has improved her diet and has eaten fruits, yogurt, and yesterday ate her whole pot roast meal. Currently receiving IV Dilaudid 1mg x 4 hours with moderate pain relief. In preparation of discharge to home she is interested in discussing oral medication. Allergies Allergy/AdvReac Type Severity Reaction Status Date / Time gluten Allergy Intermediate CELIAC Verified 01/05/24 19:56 DISEASE Home Medications Medication Instructions Recorded Confirmed Type metoprolol succinate 50 mg 50 mg PO QAM #90 tabs 09/28/23 01/05/24 Rx tablet,extended release 24 hr lorazepam 0.5 mg tablet (Ativan) 0.5 mg PO DAILY PRN anxiety #20 12/14/23 01/05/24 Rx tabs clonazepam 0.5 mg tablet 0.5 mg PO BID PRN Anxiety 01/05/24 01/05/24 History clonazepam 1 mg tablet 1 mg PO BID PRN Anxiety 01/05/24 01/05/24 History dextroamphetamine-amphetamine 10 10 mg PO BID 01/05/24 01/05/24 History mg tablet lisinopril 40 mg tablet 40 mg PO DAILY 01/05/24 01/05/24 History ondansetron HCl 4 mg tablet 4 mg PO DAILY PRN NAUSEA/VOMITING 01/05/24 01/05/24 History paroxetine HCl 10 mg tablet 10 mg PO QAM 01/05/24 01/05/24 History zolpidem 5 mg tablet 5 mg PO HS PRN Sleep 01/05/24 01/05/24 History Patient History Medical History (Updated 01/15/24 @ 08:45 by Sarah Mccollum PA-C) Encounter for pre-operative examination HTN (hypertension), benign Alcohol use disorder Social History Smoking Status: Never smoker Tobacco Type: E-cigarettes / Vaping Second Hand Exposure: No; Do You Dip or Chew Tobacco: No; Tobacco Cessation Education Requested by Patient: No Hx Alcohol Use: Yes Alcohol type: hard liquor and other Hx Substance Use: Yes Last Used Substance: Unknown Last Used Substance Other:: pt denying any illicit drugs Preferred Language: [place] Communication Ability: Effective Lead Network Architect Required: No Beliefs That Will Affect Care: None Current Living Situation: Alone Other Information That Helps Us Care for You: No Feels Safe at Home: Yes Safety Concerns: Feels Safe At This Time Gender Identity: Female Assistive Devices: None Physical Exam Physical Exam: GENERAL: This is a 28 year old female in no acute distress. HEAD/FACE: Normocephalic and atraumatic. EYES: No drainage or conjunctival injection. ENT: Nose without bleeding or discharge. Oral mucosa moist. NECK: Full ROM without apparent pain. No swelling or masses noted. RESPIRATORY: Patient with unlabored breathing. No signs of respiratory distress. CHEST/AXILLA: Chest movement symmetrical. No deformities noted. CARDIOVASCULAR: Patients heart rate is regular, with pulse rate as documented. No edema noted. ABDOMEN/GI: No distension BACK: Moves without difficulty SKIN: [place], warm and dry. No rash noted. MS/EXTREMITY: No swelling, no deformities. Moving extremities appropriately. NEURO: Alert and appears oriented. Speech is fluent. Cranial Nerves are grossly intact. PSYCH: Alert, pleasant, affect is calm
[2024-01-15] MEDS: traMADol HCL 50 MG TABLET PO PRN (10:49)
--- NOTE | 2024-01-15 17:20 | Discharge Summary ---
Date of Service January 15, 2024 Admission HPI Per Admitting Provider Patient is a 28-year-old female with history of celiac disease, chronic left hip pain, major depression, mixed anxiety disorder, history of alcohol abuse, PTSD who presents to the hospital with right upper quadrant abdominal pain as well as jaundice. Patient states that she started to have symptoms of not feeling well for the past couple weeks with some nausea and vomiting. But then over the last 2 to 3 days she started to have significant right upper quadrant abdominal pain as well as yellowing of her eyes. Patient states that she has had history of alcohol abuse but has not been drinking for some time. She states that she has never used IV drugs though does take THC. She denies any recent recreational drug use besides THC. She is prescribed Adderall, Ambien, and clozapine and has been taking them as prescribed. No increased use in any of those medications. She also denies recent Tylenol use. Denies any recent travels. Admission Exam Per Admitting Provider Constitutional: well-appearing, no acute distress HEENT: Conjunctival icterus CV: regular rhythm, no murmur appreciated, extremities well-perfused, no LE edema Resp: CTABL, no wheezes/rales/rhonchi appreciated, no increased work of breathing GI: soft, nondistended, BS normoactive, RUQ and epigastric tenderness MSK: no gross deformities appreciated Skin: warm, dry, no rash appreciated Neuro: alert, oriented, no focal neurologic deficit appreciated Principal Diagnosis MALS Discharge Exam Constitutional WD/WN, vitals as above Respiratory normal respiratory effort, lungs clear to auscultation Cardiovascular RRR, no murmur, no edema Gastrointestinal (Abdomen) normal bowel sounds, soft, nontender, no hepatosplenomegaly Skin no rashes, warm and dry Discharge Data Allergies Allergy/AdvReac Type Severity Reaction Status Date / Time gluten Allergy Intermediate CELIAC Verified 01/05/24 19:56 DISEASE Consultations 01/05/24 19:56 ED Decision to Admit Stat 01/05/24 22:12 Consult Gastroenterology Routine 01/14/24 17:24 Consult Pain Management Routine 01/14/24 18:00 Consult Physician Routine Procedures Performed Operation Date: 01/08/24 16:30 Actual Procedures p EGD Biopsy Cytology - Romeo Sanchez Case, DO Ordered Studies 01/05/24 17:05 CT angio abdomen pelvis w con Stat 01/05/24 20:19 US RUQ [US liver] Stat 01/10/24 11:19 CT Abd and Pelvis [CT abd pelvis oral and IV con] Routine 01/11/24 08:12 US Mesentary Doppler [US duplex mesenteric] Routine Abdomen/Pelvis CTA 01/05/24 17:05 Exam(s): CTA ABDOMEN + PELVIS With Contrast IV Amt: OPTIRAY 320 115ML EXAM: CT Angiography Abdomen and Pelvis With Intravenous Contrast CLINICAL HISTORY: Reason for exam: RUQ pain, history MALS. TECHNIQUE: Axial computed tomographic angiography images of the abdomen and pelvis with intravenous contrast. CTDI is 24 mGy and DLP is 672.39 mGy-cm. Automated exposure control was utilized for the study. A dose lowering technique was utilized adhering to the principles of ALARA. MIP reconstructed images were created and reviewed. CONTRAST: Patient received OPTIRAY 320 115ML of IV contrast COMPARISON: 07/29/23 FINDINGS: Lung bases are clear. There is no abdominal aortic aneurysm or dissection. Previously seen severe narrowing at the origin of the celiac artery is no longer visible. Celiac artery and its branches appear adequately patent. SMA, single bilateral renal arteries, JEROME, and bilateral iliac arteries are adequately patent. There is no adenopathy, free air, or significant free fluid. Again demonstrated is hepatic steatosis. No focal liver lesion is seen. Gallbladder, spleen, pancreas, adrenal glands, and kidneys are unremarkable. There is no bowel obstruction or mucosal thickening. Appendix is normal. Uterus is unremarkable. Tampon is present in the vagina. Urinary bladder is normal. Regional skeleton appears intact. 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 IMPRESSION: 1. No acute findings. 2. Previously observed severe narrowing of the celiac artery origin is not evident on today's exam. 3. 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 Electronically signed by: Kasey Richards M.D. 01/05/24 19:29 PM Chest X-Ray 01/05/24 17:06 XR chest 1V not portable HISTORY: 28 years-old Female RUQ pain acute chest and upper abdominal pain COMPARISON: 01/31/2014 TECHNIQUE: PA view of the chest FINDINGS: Cardiomediastinal and hilar silhouettes are within normal limits. No pneumothorax, pleural effusion, airspace consolidation or pulmonary edema. Bones appear grossly intact. IMPRESSION: No acute process. ACT 112: Negative or not required by law. The above report was generated using voice recognition software. It may contain grammatical, syntax or spelling errors. Electronically signed by: Polo Cote M.D. 01/05/2024 5:31 PM Liver Ultrasound 01/05/24 20:19 Exam(s): US LIVER EXAM: US Abdomen Limited CLINICAL HISTORY: Reason for exam: RUQ tenderness. TECHNIQUE: Real-time ultrasound of the abdomen with image documentation. COMPARISON: Liver ultrasound 07/29/23. FINDINGS: Liver: Stable increased echogenicity, nonspecific, probable fatty infiltration. Gallbladder: Unremarkable. No stones or acute cholecystitis. CBD 3.6 mm. Right kidney: Unremarkable. No hydronephrosis or interval change. IMPRESSION: 1. Stable fatty liver. 2. No cholelithiasis, acute cholecystitis or acute abnormality. Electronically signed by: Ricarda Blackburn M.D. 01/05/24 22:45 PM Abdomen/Pelvis CT 01/10/24 11:[address] WITH IV AND ORAL CONTRAST CT DOSE: 854.27 mGy.cm HISTORY: Acute nausea and vomiting with generalized abdominal pain. abdominal pain; N/V TECHNIQUE: Multiaxial CT images of the abdomen and pelvis were performed following the IV administration of 93 cc of Optiray and oral contrast. A dose lowering technique was utilized adhering to the principles of ALARA. COMPARISON STUDY: CTA 01/05/2024. FINDINGS: Small pleural effusions. Intralobular septal thickening of the right greater than left lung bases. No free air. Unremarkable spleen, pancreas and adrenal glands. Borderline gallbladder wall thickening is nonspecific. Trace abdominopelvic ascites. Unremarkable liver. Patency of the hepatic and portal veins. Unremarkable kidneys without hydronephrosis. Unremarkable urinary bladder. Bilateral ovarian follicles. The uterus is within normal limits. Aorta and IVC are unremarkable. Subcentimeter retroperitoneal lymph nodes. Moderate narrowing at the celiac origin is again noted. No bowel obstruction. There is wall thickening with partial distention involving the cecum and ascending colon. Noninflamed appendix. Avascular necrosis of the femoral heads. No acute fracture. IMPRESSION: 1. Mild pulmonary edema with small pleural effusions and trace abdominopelvic ascites. 2. No bowel obstruction or pneumoperitoneum. 3. Normal appendix. 4. Mild nonspecific wall thickening of the ascending colon which may be secondary to partial distention versus a mild nonspecific colitis. 5. Moderate narrowing at the celiac origin is again seen suggestive of median arcuate ligament syndrome. 6. Avascular necrosis of the femoral heads. ACT 112: Negative or not required by law. The above report was generated using voice recognition software. It may contain grammatical, syntax or spelling errors. Dictated: 01/10/2024 4:27 PM Transcribed: 01/10/2024 4:48 PM Suresh [id number] Electronically signed by: Polo Cote M.D. 01/10/2024 5:01 PM Mesenteric US 01/11/24 08:12 US duplex mesenteric CLINICAL HISTORY: Moderate narrowing of celiac artery on CT; MALS? COMPARISON STUDY: Abdomen and pelvis CT 01/10/2024. FINDINGS: The proximal abdominal aorta demonstrates a peak systolic velocity of 125 cm/s. The celiac artery with inspiration demonstrates a peak systolic velocity of 168 cm/s and a peak systolic velocity of 388 cm/s with expiration. Therefore, this can be seen in the setting of median arcuate ligament syndrome. Based on velocity within the superior mesenteric artery is dilated up to 4 cm/s. However, no significant stenosis on the recent CTA. IMPRESSION: Elevated peak systolic velocity in the celiac artery during expiration which normalizes during inspiration. Therefore, this can be seen in the setting of median arcuate ligament syndrome. ACT 112: Negative or not required by law. Electronically signed by: Dheeraj Ramsey M.D. 01/11/2024 11:28 AM Hospital Course (1) Elevated LFTs: (2) Hyperbilirubinemia: (3) Right upper quadrant abdominal pain: Plan Pt is a 28 yo female with a past medical history of PTSD, anxiety, insomnia, ADHD (recently started on medications), HTN, avascular necrosis of hips, and hx of MALS who presents to the hospital on 01/04 for nausea, vomiting, abdominal pain. #N/V + Hypovolemia #Abdominal pain // Muscle strain versus MALS #Transaminitis // Hyperbilirubinemia (Resolved) -Patient presented to the hospital with right upper quadrant abdominal pain, jaundice, and sclera icterus -Right upper quadrant ultrasound showed stable fatty liver, otherwise unremarkable. -CTAP with IV and PO contrast showing narrowing of the origin of the celiac artery suggestive of MALS. Mesenteric Doppler confirms MALS -Acute hepatitis panel negative -LFTs have essentially normalized and T.bili was normal as well at 0.8. - Patient had poor PO intake and N/V that continue after LFTs and T bili normalized -Abdominal pain controlled for the most part with Tylenol and Dilaudid prn - Patient was maintained with IVFs - Patient was treated with PPI, Pepcid, Compazine and Cyproheptadine - Pain management consulted: No candidate for celiac block now - She was discharge with Tramadol ordered PO q4 hrs prn and Cyproheptadine #UTI, uncomplicated, resolved -UA suggestive of infection. -Urine cultures : E.coli sensitive to everything except Bactrim -s/p 6 days of Ceftriaxone #GERD - Was referring some difficulty swallowing and burning sensation - EGD 01/08/24 with benign-appearing esophageal stenosis that was dilated and biopsied, as well as a small hiatal hernia and normal duodenum. - Continue PPI + Carafate+ Pepcid as it has helped relieve symptoms #PTSD #Anxiety - Previous overdose with home Ambien and Seroquel noted - continue clonazepam as 1 mg BID prn here - continue home paroxetine - Buspar 5 mg BID added #Systolic Murmur -Pt mentioned having a history of 'heart problems' but was never follow-up with cardiology or PCP -Echo from July showed no abnormalities -Patient asymptomatic -Continue to monitor. Recommend pt f/u with PCP #HTN - Continue home Lisinopril and Metoprolol #Avascular necrosis of bones of both hips, stable -Normal pelvis CTA showed stable avascular necrosis of the femoral heads without articular surface collapse. -Stable at this time Total Time Total Time Spent Total Time Spent (In Minutes): <30 Discharge Plan Discharge Items Patient Disposition: Home - Self-Care Reason For Visit: RIGHT UPPER QUADRANT ABDOMINAL PAIN Discharge Diagnosis: MALS Activity: Per Instructions section Non-emergency contact: Primary Care Provider Call non-emergency contact if: you have any medication questions, your pain is unusual for you, you have a fever and your wound pain has increased Follow-up/Referrals: Lulu Beltre MD [Primary Care Provider] - 01/23/24 10:00 am Diet: Regular Addtl Attending Provider Instructions: You were admitted due to nausea, vomiting and abdominal pain. It seem that this was secondary to viral hepatitis. The abdominal pain seem to be secondary to the MALS. You were treated with IV fluids, pain medications and antiemetics (anti nausea) medications. Additionally you were found with an UTI that was treated with IV antibiotics Follow-up appointments: Make a follow-up appointment with your PCP within the next week. It is very important that you follow up with them shortly after discharge from the hospital.] Keep all your follow-up appointments as already scheduled. If you cannot make an appointment, notify your provider. New Medications: - Buspirone 5 mg, take one tap twice a day - cyproheptadine 4 mg PO three times a day - Sucralfate take a cap three times a day - Ultram 50 mg every 4 hours as needed for pain Your medication list has been reviewed and reconciled upon discharge to ensure accuracy and continuity of care. An updated list of all your medications is included with your hospital discharge paperwork. Please review this list closely, and make note of any changes. Take your medications as instructed; do not skip a dose of your medicines. Make sure all of your doctors know every medicine you are taking (including hyqj-yvl-puarwur medicines, vitamins, and supplements). Call your primary care provider before taking any new medicines (including pfrc-sfl-ddruvpe medicines, vitamins, and supplements), because some of these may interact with your current medications, or may make your symptoms worse. Tell your primary care provider if you cannot afford your medications. CALL 911 OR GO TO THE EMERGENCY DEPARTMENT if you experience any of the following: Sudden, severe abdominal pain or nausea/vomiting Severe chest pain, or chest pain that radiates (moves) to your jaw or arm Sudden, severe shortness of breath or difficulty breathing Thank you for allowing us to participate in your care. Pending Studies at Discharge: No Stand-Alone Forms: My [facility] [employer], Smoking Cessation Medications and DC Order Prescriptions: New buspirone 5 mg Tablet 5 mg PO BID 30 Days Qty: 60 0RF sucralfate 100 mg/mL Suspension 1 g PO QID 30 Days Qty: 1200 0RF cyproheptadine 4 mg Tablet 4 mg PO QID 30 Days Qty: 120 0RF tramadol 50 mg tablet 50 mg PO Q4H PRN (Reason: pain) Qty: 14 0RF Continued metoprolol succinate 50 mg tablet extended release 24 hr 50 mg PO QAM Qty: 90 3RF Rx Instructions: Take 1 tablet daily in the morning lorazepam [Ativan] 0.5 mg tablet 0.5 mg PO DAILY PRN (Reason: anxiety) Qty: 20 0RF paroxetine HCl 10 mg tablet 10 mg PO QAM ondansetron HCl 4 mg tablet 4 mg PO DAILY PRN (Reason: NAUSEA/VOMITING) lisinopril 40 mg tablet 40 mg PO DAILY dextroamphetamine-amphetamine 10 mg tablet 10 mg PO BID clonazepam 0.5 mg tablet 0.5 mg PO BID PRN (Reason: Anxiety) Rx Instructions: TOTAL DOSE 1.5 MG--TAKES WITH 1 MG TAB. clonazepam 1 mg tablet 1 mg PO BID PRN (Reason: Anxiety) Rx Instructions: TOTAL DOSE 1.5 MG--TAKES WITH 0.5 MG TAB. zolpidem 5 mg tablet 5 mg PO HS PRN (Reason: Sleep) Discharge Orders: Discharge Order (Routine); Ordered 01/15/24 Ordered By: Katharina Zuniga Admission Data Admit Date/Time: 01/05/24 20:26 Attending Provider: Judi Marie Admit Provider: Alexys Delong Primary Care Provider: Lulu Beltre Other Providers: Luisito Davey; Arlen Rajput; Romeo Shields; Corine Rhodes; Trina Aguiar; Funmilayo Montanez; Mari Menard; Citlali Mercer; Renny Bender; Alec Souza; Alen Abbott; Jory Solano; Amy Gill S; Melissa Caldwell; Rosaura Portillo; Cherry Guadarrama; Bertha Quick; Bridgett Sorensen; Mike Castellon; Dar Joseph; Lauren Grace; Jocelyne Tsang Jr; Abisai Carrasco; Nafisa Roy; Joe Allen; Sarah Mccollum; Kj Montalvo Other Interventions: Discharge Summary Assessment (RN) Last Done: 01/15/24 14:15 Supervising Physician Co-Signing Physician Notes Attending Physician Supervision Note: I independently interviewed and examined the patient and verified the serna history and physical, reviewed labs and image studies and agree with findings and care plan noted above.
== END 2024-01-15 15:23 | disposition home or self-care (01) | DRG 392 ==
LOC: ED 16:20 → 3E 20:26 → SUATTDRO 20:26 → 3E 22:59